=== PATIENT | male | born 1955 | race Caucasian/White ===

== ENCOUNTER → 2017-05-10 | Outpatient (CLI) | payer OTHER ==
[~2017-05-10] MED LIST: ASPEC81 PO; LPT40 PO; LSN5 PO; NTRSLP4 SL; PLV75 PO; TPRSR50 PO
[2017-05-10 13:13] LABS: HEMATOCRIT 41.2 % (42-52); MEAN CELL VOLUME 91.6 fL (80-100); MEAN CORPUSCULAR HEMOGLOBIN 30.9 pg (25-34); MEAN CORPUSCULAR HGB CONC 33.7 g/dl (32-36); MEAN PLATELET VOLUME 9.8 fL (7.4-10.4); PLATELET COUNT 214 K/uL (130-400); WHITE BLOOD COUNT 7.46 K/uL (4.8-10.8)
[2017-05-10 14:10] LABS: ALT/SGPT 30 U/L (12-78); BLOOD UREA NITROGEN 18 mg/dl (7-18); BUN/CREATININE RATIO 16.6 (10-20); CALCIUM 9.1 mg/dl (8.5-10.1); CARBON DIOXIDE 25 mmol/L (21-32); CHLORIDE 109 mmol/L (98-107); CHOLESTEROL 138 mg/dl (0-200); GLUCOSE 89 mg/dl (70-99); POTASSIUM 4.6 mmol/L (3.5-5.1); SODIUM 142 mmol/L (136-145); TRIGLYCERIDES 70 mg/dl (0-150); VERY LOW DENSITY LIPOPROT CALC 14 mg/dl
[2017-05-10 14:13] LABS: ALB/GLOB RATIO 0.9 (0.9-2); ALKALINE PHOSPHATASE 65 U/L (45-117); AST/SGOT 19 U/L (15-37); CHOLESTEROL/HDL RATIO 2.9; HDL CHOLESTEROL 47 mg/dl; LDL CHOLESTEROL CALCULATED 77 mg/dl
== END | disposition home or self-care (01) ==
LOC: C.LAB1850 10:40
PROVIDERS: ATTEND Internal Medicine Cardiovascular Disease
DX: I25.10 Atherosclerotic heart disease of native coronary artery without angina pectoris (principal)

== ENCOUNTER → 2017-11-12 | Outpatient (CLI) | payer OTHER ==
[2017-11-12 12:25] LABS: BASO % 0.4 %; BASO ABS # 0.03 K/uL (0-0.2); EOS % 1.6 %; EOS ABS # 0.11 K/uL (0-0.5); HEMATOCRIT 41.9 % (42-52); HEMOGLOBIN 14.4 g/dL (14.0-18.0); IG# 0.02 K/uL (0.00-0.02); LYMPH % 32.3 %; LYMPH ABS # 2.29 K/uL (1.2-3.4); MEAN CELL VOLUME 91.5 fL (80-100); MEAN CORPUSCULAR HEMOGLOBIN 31.4 pg (25-34); MEAN CORPUSCULAR HGB CONC 34.4 g/dl (32-36); MEAN PLATELET VOLUME 10.1 fL (7.4-10.4); MONO % 7.2 %; MONO ABS # 0.51 K/uL (0.11-0.59); NEUT % 58.2 %; NEUT ABS # 4.12 K/uL (1.4-6.5); PLATELET COUNT 194 K/uL (130-400); RED CELL DISTRIBUTION WIDTH CV 13.2 % (11.5-14.5); RED CELL DISTRIBUTION WIDTH SD 43.8 fL (36.4-46.3); WHITE BLOOD COUNT 7.08 K/uL (4.8-10.8)
[2017-11-12 12:31] LABS: ALBUMIN 3.2 gm/dl (3.4-5.0); ALT/SGPT 30 U/L (12-78); BLOOD UREA NITROGEN 15 mg/dl (7-18); CARBON DIOXIDE 25 mmol/L (21-32); CHOLESTEROL 131 mg/dl (0-200); CREATININE 1.01 mg/dl (0.60-1.40); GLUCOSE 94 mg/dl (70-99); POTASSIUM 4.2 mmol/L (3.5-5.1); SODIUM 139 mmol/L (136-145)
[2017-11-12 12:34] LABS: ALKALINE PHOSPHATASE 66 U/L (45-117); AST/SGOT 19 U/L (15-37); LDL CHOLESTEROL CALCULATED 63 mg/dl; TOTAL PROTEIN 6.9 gm/dl (6.4-8.2)
== END | disposition home or self-care (01) ==
LOC: C.LAB1850 10:39
PROVIDERS: ATTEND Internal Medicine Cardiovascular Disease
DX: Z95.5 Presence of coronary angioplasty implant and graft (principal)

== ENCOUNTER 2021-02-05 15:06 | Inpatient (IN) ==
[~2021-02-05 15:06] MED LIST changes: -ASPEC81 PO; -LPT40 PO; -LSN5 PO; -NTRSLP4 SL; -PLV75 PO; +ROCURONIUM BROMIDE 10 MG/ML 5 ML VIAL IV ONE; -TPRSR50 PO
[2021-02-05] MEDS ORDERED: niCARdipine HCL INJ 2.5 MG/ML 10 ML AMP ONE (15:17)
[2021-02-05] MEDS ORDERED: RAPID SEQUENCE INDUCTION BAG ONE (15:17)
[2021-02-05] MEDS ORDERED: HEPARIN (PORCINE) 1000 UNIT/ML 10 ML (CATH LAB USE ONLY) ONE ×2 (15:17→16:48)
[2021-02-05] MEDS ORDERED: MIDAZOLAM HCL 1 MG/ML 2ML VIAL ONE ×3 (15:17→17:04)
[2021-02-05] MEDS ORDERED: fentaNYL citrate 100 MCG/2 ML VIAL ONE ×2 (15:18→17:04)
[2021-02-05] MEDS ORDERED: NITROGLYCERIN/D5W 100MCG/ML 20ML SYR ONE (15:18)
[2021-02-05] MEDS ORDERED: AMIODARONE 150MG / 100ML D5W IV ONE (15:25)
[2021-02-05] MEDS ORDERED: AMIODARONE / D5W 150 MG/100 ML BAG IV STA (15:26)
[2021-02-05] MEDS ORDERED: 0.2 MICRON FILTER SET 1 EA IV ONE ×2 (15:26→17:37)
[2021-02-05 15:28] LABS: iSTAT Creatinine 1.5 mg/dl (0.6-1.3); iSTAT Hemoglobin 14.3 g/dl (14.0-18.0); iSTAT Ionized Calcium 1.18 mmol/l (1.12-1.32); iSTAT Potassium 3.8 mmol/L (3.3-5.0)
--- NOTE | 2021-02-05 15:37 | History & Physical Report ---
Date of Service February 05, 2021 Assessment & Plan (1) Sudden : While mowing the lawn. Initial rhtyhm was vfib, then Vtach, s/p multiple epinephrine & lidocaine pushes and defibrillation. - LHC with Dr. Alexander on 02/05 showed 70% lesion proximal to his prior stent; however, Dr. Alexander feels this arrest was more likely an arrhythmia stemming from prior OH and not a ACS that caused an arrhythmia. - Presently in ICU undergoing cooling protocol. (2) CAD (coronary artery disease): Per cardiology note, had a prior LAD OH. PCI on 02/05 as above. - Continue ASA, beta-geraldine, ARB, statin per ICU team (3) AMI (acute kidney injury): Baseline Cr ~1.0. - Cr on admission was 1.7, likely ATN from cardiac arrest. - IV fluids per ICU team - Follow Cr (4) HTN (hypertension): Presently on pressors per ICU. - HTN meds per ICU (5) DVT prophylaxis: DVT ppx per ICU team. History of Present Illness Primary Care Provider: Zeke Lazo 65yo M w/ hx of CAD who presents as a sudden . The patient is intubated. Per EMS, he was mowing his lawn and collapsed. EMS arrived, and he was found to be in vfib. They administered approx. 15 minutes of CPR along with 4 pushes of epinephrine. After approx. 15 minutes, he went into Vtach for which he received 3 shocks and two pushes of lidocaine (200 mg) before return of spontaneous circulation. His oxygenation was acceptable on arrival to the ED; however, he was not protecting his airway, and the ED provider elected to intubate him. Allergies Allergy/AdvReac Type Severity Reaction Status Date / Time clopidogrel Allergy Mild hives Verified 11/19/20 11:37 lisinopril AdvReac Mild cough Verified 11/19/20 11:37 Home Medications Medication Instructions Recorded Confirmed Type aspirin 81 mg tablet,delayed 81 mg PO DAILY #30 tab 10/23/19 11/19/20 Rx release atorvastatin 80 mg tablet 80 mg PO QPM #30 tab 10/23/19 11/19/20 Rx nitroglycerin 0.4 mg sublingual 0.4 mg SL Q5M PRN #25 tab 10/23/19 11/19/20 Rx tablet omeprazole 20 mg tablet,delayed 20 mg PO DAILY #30 tab 10/23/19 11/19/20 Rx release losartan 50 mg tablet 50 mg PO DAILY #90 tab 01/18/20 11/19/20 Rx metoprolol succinate 50 mg 50 mg PO DAILY #90 tab 12/16/20 Rx tablet,extended release 24 hr Past Med/Surg History Medical History Acute anterior wall [place] CAD (coronary artery disease) Dyslipidemia Presence of drug coated stent in LAD coronary artery Surgical History S/P cervical spinal fusion Family History Father Coronary heart disease Myocardial infarction Hx of CABG Social History Smoking Status: Unknown if ever smoked Hx Alcohol Use: No (unknown) Hx Substance Use: No Preferred Language: Czech Communication Ability: Unable Contact Center Manager Required: No marital status: Current Living Situation: Spouse current occupational status: retired Feels Safe at Home: No Review of Systems Review of Systems: Unobtainable due to endotracheal tube and Unobtainable due to reduced consciousness Physical Exam Constitutional: WD/WN, vitals as above + acute distress Eyes: no conjunctival abnormality and + EOM not intact ENMT: external ear and nose normal, oropharynx normal Mouth / Teeth: 1. Intubated Neck: trachea midline, no thyromegaly normal visual inspection Respiratory: no respiratory distress Auscultation: no wheezes Cardiovascular: Rate/Rhythm: regular rhythm and + tachycardic Heart Sounds: normal S1 and normal S2 Vessels: no JVD Extremities: no edema Gastrointestinal (Abdomen): Inspection/Auscultation: abdomen normal to inspection; abdomen not distended Musculoskeletal: no cyanosis or clubbing, extremities motor strength 5/5 Skin: no rashes, warm and dry Neurologic: + obtunded; + does not move all extremities and + not awake Psychiatric: Orientation: + not alert PG Care Time/CCT Total # of Minutes Spent Total Time Spent with Patient: Total time spent is greater than 50% in coordination of care (as documented) at patient's floor/unit and/or counseling patient: Coding Level of Care Code 70394 Initial Inpt Care Lvl 3 Diagnoses Sudden R99 CAD (coronary artery disease) I25.10 AMI (acute kidney injury) N17.9 HTN (hypertension) I10 DVT prophylaxis Z29.9
[2021-02-05] MEDS: AMIODARONE / D5W 360 MG/200 ML BAG IV SCH ×2 (15:41→21:21)
[2021-02-05] MEDS ORDERED: SODIUM CHLORIDE 0.9% 1000ML 500 ML IV ONE (15:50)
[2021-02-05] MEDS ORDERED: ROCURONIUM BROMIDE 10 MG/ML 5 ML VIAL IV STA (15:53)
--- NOTE | 2021-02-05 15:53 | Pre Anesthesia Assessment ---
Date of Service February 05, 2021 Pre Sedation Assessment Vital Signs Pulse Resp BP Pulse Ox 02/05/21 15:51 96 02/05/21 15:33 98 H 20 150/90 H 98 Cardiovascular + tachycardic Respiratory Additional Comments: intubated Pre-Sedation Airway Assessment Smoking Status: Unknown if ever smoked ASA: ASA4 Procedure Planning Contraindications for Sedation: none Current Medications Reviewed: Yes Notes The planned sedation has been discussed with the patient. Informed Consent was obtained. I have identified the patient, determined the appropriateness of sedation and have assessed the patient immediately prior to the procedure. All medicine(s) and interventions are by my order.
--- NOTE | 2021-02-05 15:57 | XRay Report ---
SINGLE VIEW CHEST CLINICAL HISTORY: Intubation. Cardiac alert. FINDINGS: An AP, portable, supine chest radiograph is compared to study dated 02/10/2016. The examinat ion is degraded by portable technique and patient rotation. The examination is also degraded by an in determinant structure overlying the chest. An endotracheal tube has been placed. The tip projects zo roximately 1.5 cm above the tessa. The heart is enlarged. There is pulmonary vascular congestion. Em physematous changes suspected. Bilateral airspace opacities are noted. Trace pleural effusions are elmore spected. No pneumothorax is seen. The skeletal structures are osteopenic. The bony thorax is grossly intact. IMPRESSION: 1. An endotracheal tube has been placed as above. 2. Cardiomegaly with pulmonary vascular congestion. 3. Mild bilateral airspace opacities could represent developing pulmonary edema and/or a mild infecti ous/inflammatory pneumonitis. Clinical correlation will be required. 4. Suspect trace pleural effusions. ACT 112: Negative or not required by law. Electronically signed by: Fernando Hernandez M.D. 02/05/2021 3:55 PM
--- NOTE | 2021-02-05 15:59 | Cardiology Consultation ---
Date of Consultation February 05, 2021 Assessment & Plan (1) Sudden : Patient here after sudden cardiac/VF arrest post ROSC. Patient with significant CAD history and known severe residual circumflex disease. Subtle dynamic ST changes after ROSC. Recommend coronary angiography and possible PCI. Will place cooling catheter at same time. History of Present Illness History of Present Illness 65-year-old man here after out of hospital cardiac arrest post ROSC. Patient seen emergently in the ED after heart alert activated en route. Past cardiac history remarkable for coronary artery disease with prior anterior STEMI in 01/2016 treated with 2 overlapping drug-eluting stents from proximal to mid LAD. At that time noted to have severe residual mid, distal dominant circumflex disease with some right to left collaterals from small nondominant right. Most recent echocardiogram 10/2019 showed EF 50 to 55% with apical akinesis, mild LVH and DD 1. Today per had been in his usual state of health. Was outside helping with a lawnmower when had witnessed arrest. Bystander CPR reportedly started within 2 minutes. Initial rhythm with EMS VF. Shocked at least 3 times in field, at least 4 rounds of epi, multiple boluses of lidocaine. Initial ROSC ECG A-flutter with lateral ST depressions. Subsequent ECGs showed sinus rhythm with IVCD, lateral ST changes and subtle inferior ST elevations. Hemodynamically stable in ED. Intubated and loaded with amiodarone. Allergies Allergy/AdvReac Type Severity Reaction Status Date / Time clopidogrel Allergy Mild hives Verified 11/19/20 11:37 lisinopril AdvReac Mild cough Verified 11/19/20 11:37 Home Medications Medication Instructions Recorded Confirmed Type aspirin 81 mg tablet,delayed 81 mg PO DAILY #30 tab 10/23/19 11/19/20 Rx release atorvastatin 80 mg tablet 80 mg PO QPM #30 tab 10/23/19 11/19/20 Rx nitroglycerin 0.4 mg sublingual 0.4 mg SL Q5M PRN #25 tab 10/23/19 11/19/20 Rx tablet omeprazole 20 mg tablet,delayed 20 mg PO DAILY #30 tab 10/23/19 11/19/20 Rx release losartan 50 mg tablet 50 mg PO DAILY #90 tab 01/18/20 11/19/20 Rx metoprolol succinate 50 mg 50 mg PO DAILY #90 tab 12/16/20 Rx tablet,extended release 24 hr Patient History Medical History Acute anterior wall [place] CAD (coronary artery disease) Dyslipidemia Presence of drug coated stent in LAD coronary artery Surgical History S/P cervical spinal fusion Family History Father Coronary heart disease Myocardial infarction Hx of CABG Social History Smoking Status: Unknown if ever smoked Hx Alcohol Use: No (unknown) Hx Substance Use: No Preferred Language: Slovenian Communication Ability: Unable 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 2+ radial pulse Skin: No rashes or lesions. Results & Data ([facility]) Vital Signs (Past 12 Hours) Vital Signs Pulse Resp BP Pulse Ox 02/05/21 15:51 96 02/05/21 15:33 98 H 20 150/90 H 98 PG Care Time/CCT Total # of Minutes Spent Total Time Spent with Patient: Total time spent is greater than 50% in coordination of care (as documented) at patient's floor/unit and/or counseling patient: Coding Level of Care Code 19995 Initial Inpt Care Lvl 3 Diagnoses Sudden R99
[2021-02-05 16:06] LABS: Hematocrit (blood only) 41.5 % (42-52); Hemoglobin 14.1 g/dL (14.0-18.0); Mean Corpuscular Hemoglobin 31.9 pg (25-34); Mean Corpuscular Volume 93.9 fL (80-100); Mean Platelet Volume 10.9 fL (7.4-10.4); Platelet Count 272 K/uL (130-400); RDW Coefficient of Variation 13.2 % (11.5-14.5); RDW Standard Deviation 45.9 fL (36.4-46.3); Red Blood Count 4.42 M/uL (4.7-6.1); White Blood Count 16.02 K/uL (4.8-10.8)
--- NOTE | 2021-02-05 16:06 | Emergency Department Note ---
Impression & Plan Cardiac arrest, Ventricular tachycardia, Ventricular fibrillation, Collapse ED Provider Note NAME: FLORECITA WHITFIELD AGE: 65 SEX: M : 1955 ARRIVES VIA: Ambulance INFORMANT: [ems] ED PROVIDER(S): [Fernando Garcia MD] CHIEF COMPLAINT: Cardiac arrest HISTORY OF PRESENT ILLNESS: The patient is a 65-year-old male who presents to the ER after a cardiac arrest. As per EMS, the patient was mowing the lawn and had a sudden collapse. Within about 2 minutes, the first responders arrived and CPR was initiated. When the ambulance crew arrived, they started ACLS protocol. They did CPR for around 2 minutes. The patient appeared to be in a V. fib. The patient was resuscitated. A Rolando airway was placed. He was defibrillated. He received IV epinephrine. According to EMS, the patient received around 4 mg of IV epinephrine. He was given a total of 200 mg of IV lidocaine. He was defibrillated multiple times for V. fib and V. tach. After the first part of his resuscitation, he regained circulation. He then lost circulation and then once again regained circulation with ACLS protocol. He presents to our ER with a sinus tachycardia and an adequate blood pressure. His O2 saturation was adequate. Of note, the EMS crew did give a small amount of pulse dose IV epinephrine on the way here for a lower blood pressure. His blood pressure rebounded with the epinephrine. The patient's states that her has a long history of heart disease. He does have at least one coronary stent. She states that she was told that the lower part of his heart was not functioning anymore. Given the patient's inability to communicate after resuscitation, no further history is obtainable. REVIEW OF SYSTEMS: Unobtainable given his current mental state/intubation. PMHx/PSHx: See Below SOCIAL HISTORY: See Below. PHYSICAL EXAM: GENERAL: Patient is in no acute distress. HEENT: No acute trauma, normocephalic atraumatic, mucous membranes moist, no n sheila congestion, no scleral icterus. There is a Rolando airway in place orally. Pupils are equal and react to light. NECK: No stridor, no adenopathy, trachea is midline. LUNGS: Clear to auscultation bilaterally, no wheeze, no rhonchi, breath sounds equal. Patient does appear to be taking some spontaneous breaths and at times, breathing around the Rolando airway. HEART: Without murmurs gallops or rubs, mildly tachycardic with an occasional extra beat. ABDOMEN: Soft, not distended, no hernias. No contusions. EXTREMITIES: No cyanosis or edema, there is an IV in each upper extremity. No evidence for acute extremity trauma by gross exam. NEUROLOGIC: The patient is attempting to breathe on his own around the Rolando airway, does not spontaneously move his upper or lower extremities. Intubated. SKIN: No rash, no jaundice, no diaphoresis. DIFFERENTIAL DIAGNOSIS: Cardiac ischemia, V. fib, V. tach, HI, aortic dissection, pulmonary embolism, pneumothorax, pneumonia, pericarditis, myocarditis, esophageal rupture, GERD, cholecystitis, pancreatitis, musculoskeletal, as well as other pathologies. EMERGENCY DEPARTMENT COURSE/PROCEDURES: ECG: Indication was cardiac arrest. The ECG shows sinus tachycardia with a rate of 103. There is some T wave inversion and ST depression in the lateral leads. No ST elevation. No PVCs. The QTc is 489. Compared to an ECG from 12 February 2016, the rate has increased. The ST and T wave changes appear similar. Continuous Cardiac Monitoring: An order was placed for continuous cardiac monitoring. The monitor shows a rate of 102 with sinus tachycardia. Critical Care Note: I have personally spent 63 minutes of critical care time in the direct management of this patient. This includes bedside care, interpretation of diagnostic studies, and testing, discussion with consultants, patient, and family members, and other required patient management activities. This 63 minutes is in excess of all separately billable procedures. Intubation: This procedure was performed by ky. Patient received 50 mg of rocuronium IV. The patient was oxygenated. Using rapid technique, the patient was intubated with a Riley two blade. Some suction was required. No complication. The endotracheal tube was placed at 25 centimeters at the the lips. Good O2 saturation noted afterwards. Good CO2 color change. Breath sounds equal bilaterally. Post intubation chest x-ray demonstrated the tube to be in good position. MEDICAL DECISION MAKING: There is a moderate leukocytosis, this could be consistent with infection or the stress of his presentation. There is no anemia. There is a normal platelet c ount. No coagulopathy. CO2 was somewhat low consistent with some potential acidosis. No kidney failure. No evidence for pancreatitis. Patient appeared to be in a euthyroid state. Urinalysis showed some ketones and some white blood cells. Urinalysis was consistent with the possibility of infection. Covid and influenza testing returned negative. ECG shows a sinus tachycardia, there was no ST elevation. Cardiac enzyme testing x1 is somewhat elevated consistent with cardiac injury. Chest film showed some mild CHF. The endotracheal tube was in proper position. No pneumothorax or pneumonia. The patient presents after a cardiac arrest. Here in the ED, he was given a 500 cc saline bolus. The Rolando airway was eventually removed as he seemed to be breathing around the device. He was intubated orally with an 8.0 endotracheal tube. No complications. He had excellent O2 saturations afterwards. He was given a bolus of amiodarone, 150 mg IV. This was given over around 10 minutes. He was then placed on an IV amiodarone drip. Patient had a Casarez catheter placed and an orogastric tube placed. He was placed on the ventilator. He has done well in the ED. Because of his history, a code Arctic and a heart alert was called. Body cooling was initiated. I did speak with the bow maker production as well as the systems software engineer. I also spoke with the on-call hospitalist. I spoke to the patient's and gave her an update on the patient's condition. Case management has been involved. The patient presents after a cardiac arrest. He has had return of spontaneous circulation. He is in critical condition and being sent to the cardiac catheterization lab and then the ICU. Past Med/Surg History Medical History Acute anterior wall HI CAD (coronary artery disease) Dyslipidemia Presence of drug coated stent in LAD coronary artery Surgical History S/P cervical spinal fusion Family History Father Coronary heart disease Myocardial infarction Hx of CABG Social History Smoking Status: Unknown if ever smoked Hx Alcohol Use: No (unknown) Hx Substance Use: No Preferred Language: Ethiopian Communication Ability: Unable Roll Scale Man Required: No marital status: Current Living Situation: Spouse current occupational status: retired Feels Safe at Home: No Allergies Allergies Allergy/AdvReac Type Severity Reaction Status Date / Time clopidogrel Allergy Mild hives Verified 11/19/20 11:37 lisinopril AdvReac Mild cough Verified 11/19/20 11:37 Home Meds Previous Rx's Medication Instructions Recorded aspirin 81 mg tablet,delayed 81 mg PO DAILY #30 tab 10/23/19 release atorvastatin 80 mg tablet 80 mg PO QPM #30 tab 10/23/19 nitroglycerin 0.4 mg sublingual 0.4 mg SL Q5M PRN #25 tab 10/23/19 tablet omeprazole 20 mg tablet,delayed 20 mg PO DAILY #30 tab 10/23/19 release losartan 50 mg tablet 50 mg PO DAILY #90 tab 01/18/20 metoprolol succinate 50 mg 50 mg PO DAILY #90 tab 12/16/20 tablet,extended release 24 hr Results & Data (ED) Vital Signs Vital Signs - 24 hr 02/05/21 15:15 02/05/21 15:20 02/05/21 15:21 Temperature Pulse Rate 112 H 104 H 100 H Pulse Rate from SpO2 Sensor 103 H 104 H Respiratory Rate Respiratory Effort / Characteristics Respiratory Depth Blood Pressure 152/89 H 175/126 H Blood Pressure Mean 110 142 Blood Pressure Position Pulse Oximetry 99 99 Oxygen Delivery Method Fraction of Inspired Oxygen Sepsis Recent Fever Within 48 Hours Sepsis New/Unexplained Change in Mental Status Sepsis Action Taken by Nursing End-Tidal CO2 02/05/21 15:26 02/05/21 15:30 02/05/21 15:31 Temperature 35.9 C L 36.2 C L 36.4 C L Pulse Rate 102 H 102 H 102 H Pulse Rate from SpO2 Sensor 103 H 101 H 101 H Respiratory Rate Respiratory Effort / Characteristics Respiratory Depth Blood Pressure 145/101 H 182/109 H Blood Pressure Mean 115 133 Blood Pressure Position Pulse Oximetry 97 97 98 Oxygen Delivery Method Mechanical Vent Mechanical Vent Mechanical Vent Fraction of Inspired Oxygen Sepsis Recent Fever Within 48 Hours Sepsis New/Unexplained Change in Mental Status Sepsis Action Taken by Nursing End-Tidal CO2 38 42 43 02/05/21 15:33 02/05/21 15:35 02/05/21 15:38 Temperature 36.5 C Pulse Rate 98 H 108 H 87 Pulse Rate from SpO2 Sensor 109 H Respiratory Rate 20 18 Respiratory Effort / Characteristics Respiratory Depth Normal Blood Pressure 150/90 H 179/108 H Blood Pressure Mean 110 131 Blood Pressure Position Lying Pulse Oximetry 98 98 98 Oxygen Delivery Method Mechanical Vent Mechanical Vent Fraction of Inspired Oxygen 100 Sepsis Recent Fever Within 48 Hours No Sepsis New/Unexplained Change in Mental Status N/A Sepsis Action Taken by Nursing No Action Required End-Tidal CO2 46 02/05/21 15:40 02/05/21 15:47 02/05/21 15:51 Temperature 36.6 C Pulse Rate 95 H Pulse Rate from SpO2 Sensor 95 H Respiratory Rate Respiratory Effort / Characteristics Mechanically Ventilated Respiratory Depth Blood Pressure 180/106 H Blood Pressure Mean 130 Blood Pressure Position Pulse Oximetry 98 96 Oxygen Delivery Method Mechanical Vent Mechanical Vent Fraction of Inspired Oxygen Sepsis Recent Fever Within 48 Hours Sepsis New/Unexplained Change in Mental Status Sepsis Action Taken by Nursing End-Tidal CO2 41 02/05/21 17:25 02/05/21 17:30 Temperature Pulse Rate 87 89 Pulse Rate from SpO2 Sensor Respiratory Rate 16 20 Respiratory Effort / Characteristics Respiratory Depth Blood Pressure Blood Pressure Mean Blood Pressure Position Pulse Oximetry 98 97 Oxygen Delivery Method Fraction of Inspired Oxygen 100 60 Sepsis Recent Fever Within 48 Hours Sepsis New/Unexplained Change in Mental Status Sepsis Action Taken by Nursing End-Tidal CO2 40 Home Medications Current Medication List: was personally reviewed by me Laboratory Data Attestation: I reviewed the patient's lab results. Result diagrams: 02/05/21 19:12 02/05/21 19:12 Lab Results 02/05/21 02/05/21 02/05/21 Range/Units 15:14 15:14 15:14 WBC 16.02 H (4.8-10.8) K/uL RBC 4.42 L (4.7-6.1) M/uL Hgb 14.1 (14.0-18.0) g/dL POC Hgb (14.0-18.0) g/dl Hct 41.5 L (42-52) % POC Hct (42-52) % MCV 93.9 (80-100) fL MCH 31.9 (25-34) pg MCHC 34.0 (32-36) g/dL RDW Std Deviation 45.9 (36.4-46.3) fL RDW Coeff of Linda 13.2 (11.5-14.5) % Plt Count 272 (130-400) K/uL MPV 10.9 H (7.4-10.4) fL Immature Gran % (Auto) 2.1 % Neut % (Auto) 49.2 % Lymph % (Auto) 42.6 % [place] % (Auto) 5.5 % Eos % (Auto) 0.4 % Baso % (Auto) 0.2 % Neut # (Auto) 7.88 H (1.4-6.5) K/uL Lymph # (Auto) 6.82 H (1.2-3.4) K/uL [place] # (Auto) 0.88 H (0.11-0.59) K/uL Eos # (Auto) 0.07 (0-0.5) K/uL Baso # (Auto) 0.04 (0-0.2) K/uL Immature Gran # (Auto) 0.33 H (0.00-0.02) K/uL PT 11.3 (9.0-12.0) Seconds INR 1.1 (0.9-1.1) APTT 25.3 (21.0-31.0) Seconds PTT Ratio 1.0 Activ Coag Time Kaolin (94-140) SECONDS POC Sodium (135-144) mmol/L Sodium 142 (136-145) mmol/L POC Potassium (3.3-5.0) mmol/L Potassium 3.9 (3.5-5.1) mmol/L POC Chloride (101-112) mmol/L Chloride 109 H (98-107) mmol/L Carbon Dioxide 16 L (21-32) mmol/L POC Total CO2 (24-31) mmol/L Anion Gap 17.0 H (3-11) POC Anion Gap (16-25) mmol/L POC BUN (7-18) mg/dl BUN 18 (7-18) mg/dl Creatinine 1.69 H (0.6-1.4) mg/dl POC Creatinine (0.6-1.3) mg/dl Est Cr Clr Drug Dosing 56.0 ml/min Est GFR ( Amer) 47.7 Est GFR (Non-Af Amer) 41.1 BUN/Creatinine Ratio 10.7 (10-20) Glucose 255 H (70-99) mg/dl POC Glucose (other) (70-99) mg/dl Calcium 8.4 L (8.5-10.1) mg/dl POC Ioniz Calcium Neelam (1.12-1.32) mmol/l Phosphorus 7.0 H (2.5-4.9) mg/dl Magnesium 2.4 (1.8-2.4) mg/dl Total Bilirubin 0.5 (0.2-1) mg/dl AST 67 H (15-37) U/L ALT 92 H (12-78) U/L Alkaline Phosphatase 86 (45-117) U/L Troponin I 0.076 H* (0-0.045) ng/ml Total Protein 6.7 (6.4-8.2) gm/dl Albumin 3.2 L (3.4-5.0) gm/dl Globulin 3.5 (2.5-4.0) gm/dl Albumin/Globulin Ratio 0.9 (0.9-2) Lipase 97 (73-393) U/L TSH 4.490 (0.300-4.500) uIu/ml Urine Color Urine Appearance (Clear) Urine pH (4.5-7.5) Ur Specific [place] (1.000-1.030) Urine Protein (Negative) Urine Glucose (UA) (Negative) Urine Ketones (Negative) Urine Blood (Negative) Urine Nitrite (Negative) Urine Bilirubin (Negative) Urine Urobilinogen (Negative) Ur Leukocyte Esterase (Negative) Urine WBC (Auto) (0-5) /hpf Urine RBC (Auto) (0-4) /hpf U Hyaline Cast (Auto) (0-5) /lpf U Epithel Cells (Auto) (0-5) /lpf Urine Bacteria (Auto) (Negative) Amorphous Sediment (None Prsent) Urine Yeast 02/05/21 02/05/21 02/05/21 Range/Units 15:15 15:44 16:45 WBC (4.8-10.8) K/uL RBC (4.7-6.1) M/uL Hgb (14.0-18.0) g/dL POC Hgb 14.3 (14.0-18.0) g/dl Hct (42-52) % POC Hct 42 (42-52) % MCV (80-100) fL MCH (25-34) pg MCHC (32-36) g/dL RDW Std Deviation (36.4-46.3) fL RDW Coeff of Linda (11.5-14.5) % Plt Count (130-400) K/uL MPV (7.4-10.4) fL Immature Gran % (Auto) % Neut % (Auto) % Lymph % (Auto) % [place] % (Auto) % Eos % (Auto) % Baso % (Auto) % Neut # (Auto) (1.4-6.5) K/uL Lymph # (Auto) (1.2-3.4) K/uL [place] # (Auto) (0.11-0.59) K/uL Eos # (Auto) (0-0.5) K/uL Baso # (Auto) (0-0.2) K/uL Immature Gran # (Auto) (0.00-0.02) K/uL PT (9.0-12.0) Seconds INR (0.9-1.1) APTT (21.0-31.0) Seconds PTT Ratio Activ Coag Time Kaolin 191 H (94-140) SECONDS POC Sodium 141 (135-144) mmol/L Sodium (136-145) mmol/L POC Potassium 3.8 (3.3-5.0) mmol/L Potassium (3.5-5.1) mmol/L POC Chloride 107 (101-112) mmol/L Chloride (98-107) mmol/L Carbon Dioxide (21-32) mmol/L POC Total CO2 16 L (24-31) mmol/L Anion Gap (3-11) POC Anion Gap 22.0 (16-25) mmol/L POC BUN 19 H (7-18) mg/dl BUN (7-18) mg/dl Creatinine (0.6-1.4) mg/dl POC Creatinine 1.5 H (0.6-1.3) mg/dl Est Cr Clr Drug Dosing ml/min Est GFR ( Amer) Est GFR (Non-Af Amer) BUN/Creatinine Ratio (10-20) Glucose (70-99) mg/dl POC Glucose (other) 249 H (70-99) mg/dl Calcium (8.5-10.1) mg/dl POC Ioniz Calcium Neelam 1.18 (1.12-1.32) mmol/l Phosphorus (2.5-4.9) mg/dl Magnesium (1.8-2.4) mg/dl Total Bilirubin (0.2-1) mg/dl AST (15-37) U/L ALT (12-78) U/L Alkaline Phosphatase (45-117) U/L Troponin I (0-0.045) ng/ml Total Protein (6.4-8.2) gm/dl Albumin (3.4-5.0) gm/dl Globulin (2.5-4.0) gm/dl Albumin/Globulin Ratio (0.9-2) Lipase (73-393) U/L TSH (0.300-4.500) uIu/ml Urine Color Dark Yellow Urine Appearance Cloudy A (Clear) Urine pH 5.5 (4.5-7.5) Ur Specific [place] 1.025 (1.000-1.030) Urine Protein 3+ H (Negative) Urine Glucose (UA) Negative (Negative) Urine Ketones Trace H (Negative) Urine Blood 2+ H (Negative) Urine Nitrite Negative (Negative) Urine Bilirubin Negative (Negative) Urine Urobilinogen Negative (Negative) Ur Leukocyte Esterase Negative (Negative) Urine WBC (Auto) >30 H (0-5) /hpf Urine RBC (Auto) 5-10 H (0-4) /hpf U Hyaline Cast (Auto) 10-30 H (0-5) /lpf U Epithel Cells (Auto) 20-30 H (0-5) /lpf Urine Bacteria (Auto) Negative (Negative) Amorphous Sediment Present A (None Prsent) Urine Yeast Not Reportable Administered Medications Amiodarone HCl/Dextrose (Nexterone / D5w) 360 mg in 200 mls @ 33.333 mls/hr IV .Q6H NEIL Stop: 03/07/21 15:44 Last Infusion: 02/05/21 19:07 Dose: 1 mg/min, 33.3 mls/hr Documented by: [id number] Cosigned by: [id number] Admin: 02/05/21 15:41 Dose: 1 mg/min, 33.3 mls/hr Documented by: [id number] Cosigned by: [id number] Sodium Chloride (Nss 1000ml) 1,000 mls @ 100 mls/hr IV .Q10H NEIL Stop: 02/06/21 01:14 Last Admin: 02/05/21 18:55 Dose: 100 mls/hr Documented by: [id number] Propofol (Diprivan) 1,000 mg in 100 mls @ 15.276 mls/hr IV .Q6H33M [facility]; Protocol Stop: 02/08/21 17:59 Last Admin: 02/05/21 19:30 Dose: 20 mcg/kg/min, 15.3 mls/hr Documented by: [id number] Cosigned by: [id number] Fentanyl Citrate (Fentanyl Drip) 1,250 mcg in 250 mls @ 10 mls/hr IV .Q25H [facility]; Protocol Stop: 02/19/21 17:59 Last Titration: 02/05/21 20:00 Dose: 50 mcg/hr, 10 mls/hr Documented by: [id number] Cosigned by: [id number] Titration: 02/05/21 19:07 Dose: 25 mcg/hr, 5 mls/hr Documented by: [id number] Cosigned by: [id number] Admin: 02/05/21 18:52 Dose: 25 mcg/hr, 5 mls/hr Documented by: [id number] Cosigned by: [id number] Discontinued Medications Amiodarone HCl/Dextrose (Amiodarone 150mg / 100ml D5w) Confirm Administered Dose 150 mg IV .STK-MED ONE Stop: 02/05/21 15:26 Last Admin: 02/05/21 15:31 Dose: Not Given Documented by: [id number] Fentanyl Citrate (Fentanyl Citrate 100 Mcg/2 Ml Vial) Confirm Administered Dose 100 mcg .ROUTE .STK-MED ONE Stop: 02/05/21 15:19 Last Admin: 02/05/21 17:39 Dose: 100 mcg Documented by: [id number] Fentanyl Citrate (Fentanyl Citrate 100 Mcg/2 Ml Vial) Confirm Administered Dose 100 mcg .ROUTE .STK-MED ONE Stop: 02/05/21 17:05 Last Increment: 02/05/21 17:41 Dose: 50 mcg Documented by: [id number] Fentanyl Citrate (Fentanyl Citrate 1250mcg/250ml Nss) Confirm Administered Dose 1,250 mcg IV .STK-MED ONE Stop: 02/05/21 18:00 Last Admin: 02/05/21 18:54 Dose: Not Given Documented by: [id number] Heparin Sodium (Porcine) (Heparin (Porcine) 1000 Unit/Ml 10 Ml (Electrician Rectifier Maintenance Use Only)) Confirm Administered Dose 10,000 units .ROUTE .STK-MED ONE Stop: 02/05/21 15:18 Last Admin: 02/05/21 17:39 Dose: 10,000 units Documented by: [id number] Heparin Sodium (Porcine) (Heparin (Porcine) 1000 Unit/Ml 10 Ml (Electrician Rectifier Maintenance Use Only)) Confirm Administered Dose 10,000 units .ROUTE .STK-MED ONE Stop: 02/05/21 16:49 Last Admin: 02/05/21 17:40 Dose: 2,000 units Documented by: [id number] Heparin Sodium/Sodium Chloride (Heparin In Nss Infusion 1000 Unit/500 Ml (2 U/Ml) Bag) Confirm Administered Dose 3,000 units IV .STK-MED ONE Stop: 02/05/21 15:19 Last Admin: 02/05/21 17:40 Dose: 3,000 units Documented by: [id number] Amiodarone HCl/Dextrose (Nexterone / D5w) 150 mg in 100 mls @ 600 mls/hr IV NOW STA Stop: 02/05/21 15:35 Last Infusion: 02/05/21 18:54 Dose: 0 mls/hr Documented by: [id number] Cosigned by: [id number] Admin: 02/05/21 15:31 Dose: 600 mls/hr Documented by: [id number] Cosigned by: [id number] Sodium Chloride (Nss 1000ml) 500 mls @ 999 mls/hr IV .Q31M ONE Stop: 02/05/21 16:20 Last Admin: 02/05/21 18:51 Dose: Not Given Documented by: [id number] Midazolam HCl (Midazolam Hcl 1 Mg/Ml 2ml Vial) Confirm Administered Dose 2 mg .ROUTE .STK-MED ONE Stop: 02/05/21 15:18 Last Admin: 02/05/21 17:39 Dose: 2 mg Documented by: [id number] Midazolam HCl (Midazolam Hcl 1 Mg/Ml 2ml Vial) Confirm Administered Dose 2 mg .ROUTE .STK-MED ONE Stop: 02/05/21 16:30 Last Admin: 02/05/21 17:40 Dose: 2 mg Documented by: [id number] Midazolam HCl (Midazolam Hcl 1 Mg/Ml 2ml Vial) Confirm Administered Dose 2 mg .ROUTE .STK-MED ONE Stop: 02/05/21 17:05 Last Admin: 02/05/21 17:41 Dose: 2 mg Documented by: [id number] Miscellaneous (Rapid Sequence Induction Bag) Confirm Administered Dose 1 ea .ROUTE .STK-MED ONE Stop: 02/05/21 15:18 Last Admin: 02/05/21 18:51 Dose: Not Given Documented by: [id number] Nicardipine HCl (Nicardipine Hcl Inj 2.5 Mg/Ml 10 Ml Amp) Confirm Administered Dose 25 mg .ROUTE [email or web address] ONE Stop: 02/05/21 15:18 Last Admin: 02/05/21 17:39 Dose: 25 mg Documented by: [id number] Nitroglycerin/Dextrose (Nitroglycerin/D5w 100mcg/Ml 20ml Syr) Confirm Administered Dose 2,000 mcg .ROUTE .ST1000 Corks-MED ONE Stop: 02/05/21 15:19 Last Admin: 02/05/21 17:40 Dose: 2,000 mcg Documented by: [id number] Propofol (Propofol Iv Emulsion 10 Mg/Ml 100 Ml Vial) Confirm Administered Dose 1,000 mg IV [email or web address] ONE Stop: 02/05/21 18:00 Last Admin: 02/05/21 18:54 Dose: Not Given Documented by: [id number] Rocuronium [place] (Rocuronium [place] 10 Mg/Ml 5 Ml Vial) 50 mg IV NOW STA Stop: 02/05/21 15:54 Last Admin: 02/05/21 15:21 Dose: 50 mg Documented by: [id number] Cosigned by: [id number] Ticagrelor (Ticagrelor 90 Mg Tab) Confirm Administered Dose 180 mg PO .Volvant ONE Stop: 02/05/21 16:57 Last Admin: 02/05/21 17:40 Dose: 180 mg Documented by: [id number] Imaging Data Radiologist's Impression: Chest X-Ray 02/05/21 15:33 SINGLE VIEW CHEST CLINICAL HISTORY: Intubation. Cardiac alert. FINDINGS: An AP, portable, supine chest radiograph is compared to study dated 02/10/2016. The examination is degraded by portable technique and patient rotation. The examination is also degraded by an indeterminant structure overlying the chest. An endotracheal tube has been placed. The tip projects approximately 1.5 cm above the tessa. The heart is enlarged. There is pulmonary vascular congestion. Emphysematous changes suspected. Bilateral airspace opacities are noted. Trace pleural effusions are suspected. No pneumothorax is seen. The skeletal structures are osteopenic. The bony thorax is grossly intact. IMPRESSION: 1. An endotracheal tube has been placed as above. 2. Cardiomegaly with pulmonary vascular congestion. 3. Mild bilateral airspace opacities could represent developing pulmonary edema and/or a mild infectious/inflammatory pneumonitis. Clinical correlation will be required. 4. Suspect trace pleural effusions. ACT 112: Negative or not required by law. Electronically signed by: Fernando Hernandez M.D. 02/05/2021 3:55 PM Discharge Plan Visit Data Chief Complaint: Cardiac Arrest/CPR Stated Complaint: HEART ALERT ED Provider: Fernando Garcia Discharge Problem: Cardiac arrest, Ventricular tachycardia, Ventricular fibrillation, Collapse Patient Disposition: Admitted As Inpatient Condition: Critical
[2021-02-05 16:10] LABS: Appearance Urine Cloudy (Clear); Bacteria Urine Automated Negative (Negative); Bilirubin Urine Negative (Negative); Blood Urine 2+ (Negative); Color Urine Dark Yellow; Epithelial Cell Urine Auto 20-30 /lpf (0-5); Glucose Urine UA Negative (Negative); Ketones Urine Trace (Negative); Leukocyte Esterase Urine Negative (Negative); Nitrite Urine Negative (Negative); Protein Urine 3+ (Negative); Specific Gravity Urine 1.025 (1.000-1.030); Urobilinogen Urine Negative (Negative); WBC Urine Automated >30 /hpf (0-5); pH Urine 5.5 (4.5-7.5)
[2021-02-05 16:15] LABS: Albumin Level 3.2 gm/dl (3.4-5.0); BUN Creatinine Ratio 10.7 (10-20); Calcium 8.4 mg/dl (8.5-10.1); Est GFR (African American) 47.7; Est GFR (Non-African American) 41.1; Magnesium 2.4 mg/dl (1.8-2.4); Potassium 3.9 mmol/L (3.5-5.1)
[2021-02-05 16:17] LABS: INR 1.1 (0.9-1.1); Partial Thromboplastin Time 25.3 Seconds (21.0-31.0); Prothrombin Time 11.3 Seconds (9.0-12.0)
[2021-02-05 16:29] LABS: Basophils # (auto) 0.04 K/uL (0-0.2); Basophils % (auto) 0.2 %; Eosinophils # (auto) 0.07 K/uL (0-0.5); Eosinophils % (auto) 0.4 %; Immature Granulocytes # (auto) 0.33 K/uL (0.00-0.02); Immature Granulocytes % (auto) 2.1 %; Lymphocytes # (auto) 6.82 K/uL (1.2-3.4); Lymphocytes % (auto) 42.6 %; Monocytes # (auto) 0.88 K/uL (0.11-0.59); Monocytes % (auto) 5.5 %; Neutrophils # (auto) 7.88 K/uL (1.4-6.5); Neutrophils % (auto) 49.2 %
[2021-02-05 16:32] LABS: Albumin Globulin Ratio 0.9 (0.9-2); Bilirubin,Total 0.5 mg/dl (0.2-1); Globulin 3.5 gm/dl (2.5-4.0); Thyroid Stimulating Hormone 4.49 uIu/ml (0.300-4.500); Total Protein 6.7 gm/dl (6.4-8.2); Troponin I 0.076 ng/ml (0-0.045)
[2021-02-05 16:49] LABS: Amorphous Sediment Urine Present (None Prsent)
[2021-02-05] MEDS ORDERED: TICAGRELOR 90 MG TAB PO ONE (16:56)
--- NOTE | 2021-02-05 17:34 | Post Anesthesia Assessment ---
Date of Service February 05, 2021 Post Sedation Assessment Vital Signs Temp Pulse Resp BP Pulse Ox 02/05/21 15:51 96 02/05/21 15:40 97.9 F 95 H 180/106 H 98 02/05/21 15:35 97.7 F 108 H 179/108 H 98 02/05/21 15:33 98 H 20 150/90 H 98 02/05/21 15:31 97.5 F L 102 H 182/109 H 98 02/05/21 15:30 97.2 F L 102 H 97 02/05/21 15:26 96.6 F L 102 H 145/101 H 97 02/05/21 15:21 100 H 175/126 H 99 02/05/21 15:20 104 H 99 02/05/21 15:15 112 H 152/89 H Recovery Score Circulation: +/-20% PreAnes Value Consciousness: Nonresponsive Oxygen Saturation: O2 needed for >90% Discharge Sedation Level of Care: Higher Level of Care Post Sedation Plan On clinical assessment, the patient appears to have tolerated the sedation without complications. Patient is recovering as anticipated. Patient will continue to be monitored by nursing and may be discharged when sedation discharge criteria are met per below protocol. Upon Completions of procedure up to 15 minutes continue every 5 minute vital signs and the P.A.R. score; then discharge to a Phase I or Fast Track to Phase II per the following guidelines: * Discharge Patient to appropriate Phase II area if PAR is 8 or greater or return to pre- procedure baseline. The post - procedure orders will be as directed. * If PAR score is less than 8 or not return to pre-procedure baseline then patient will follow Phase I monitoring till PAR is reached for Phase II. The Phase I may be done in procedure room or may call to secure a Phase I area. * If naloxone or flumazenil are used for reversal, hold in Phase I for continued monitoring from when last reversal dose was given for a minimum of 60 minutes or longer pending the nurse and/or physician discretion of patient condition before discharge to Phase II. Please call the Sedation Physician to re-evaluate and complete post-note for discharge to Phase II area. Do NOT discharge from procedure sedation or Phase 1 until post- sedation evaluation note is complete by procedure /sedation MD Sedation Discharge Instructions to be given to the patient at discharge to home.
[2021-02-05] MEDS ORDERED: ICU PROTOCOL FOR HYPERGLYCEMIA PRN (17:37)
[2021-02-05] MEDS ORDERED: AMIODARONE / D5W 360 MG/200 ML BAG IV ONE (17:37)
--- NOTE | 2021-02-05 17:37 | Post Operative Brief Note ---
Cardiology Brief Post Op Date of Surgery February 05, 2021 Pre & Post Diagnosis Coronary artery disease Procedure Coronary angiography Left heart catheterization PCI to proximal LAD with single LUCIANA IVUS of LAD Cooling catheter placement to right common femoral vein under ultrasound guidance Boner Meat Foster Alexander MD Alumina Refinery Operator Vinay Estimated Blood Loss 15 Findings See Below 70% proximal LAD with questionable thrombus on IVUS 100% proximal circumflex chronic occlusion. Left to left collaterals to PDA/PLB Small, nondominant RCA with diffuse disease Successful PCI of proximal LAD with single LUCIANA (3.0 x 15 mm [place]; postdilated with 3.5 NC). Fluids -- Specimens Specimen Description: -- Anesthesia Type RN Sedation Complications none Disposition Accompanied Patient To Recovery: No Disposition: Surgical ICU Overlapping Procedure I was present for: the critical portions of procedure. I was immediately available: during the entire case. Back up surgeon: was not required during procedure.
[2021-02-05] MEDS ORDERED: SODIUM CHLORIDE 0.9% 1000ML 1,000 ML IV SCH (17:45)
[2021-02-05] MEDS ORDERED: AMIODARONE / D5W 360 MG/200 ML BAG IV SCH (17:45)
--- NOTE | 2021-02-05 17:46 | Pulmonary Consultation ---
Date of Consultation February 05, 2021 Assessment & Plan (1) Cardiac arrest: Reason for critical illness: 55-year-old male past medical history of coronary artery disease s/p RI in 2016 was brought to the ED after cardiac arrest on the field. He had V. fib and V. tach for which he was defibrillated multiple times and given 200 mg of lidocaine. He also got 5 rounds of epi. In the ED he had ROSC. He was taken to [facility] and stent was placed in proximal LAD. He is in MICU for further care --Cardiac arrest Patient had multiple V. fib and V. tach Patient was taken to [facility] Proximal LAD stent placed in Patient had multiple vessel disease On hypothermia protocol EKG 02/05/2021 done in the ED: Sinus tachycardia, normal axis, no ST-T wave changes appreciated -- VDRF Likely secondary to cardiac arrest for airway protection Continue with ventilatory support Keep RASS -1 -- AMI Follow-up urine lites Monitor BUN/creatinine Avoid nephrotoxic medications Strict ins and outs -- HAGMA Delta-delta: Less than 1, gap was nongap Gap is likely from lactic acidosis, patient is also having diarrhea nongap could be from that, will follow urine lites. Follow up ABG Monitor -- Leukocytosis Likely reactive to cardiac arrest Monitor --Prophylaxis VTE: IPC's GI: Protonix Lines: Right femoral, left radial, positive Casarez Diet: N.p.o. Plan: Continue with hypothermia protocol Follow-up urine lites If the has another episode of V. fib V. tach start amiodarone drip Chest x-ray done in the ED showed ET tube 1.3 cm above the tessa. We will repeat a status chest x-ray to make sure it is in a good position. Patient condition was updated to the patient's was present at bedside. I have personally spent 58 minutes of critical care time in the direct management of this patient. This is a life/limb threatening event. This includes time spent evaluating patient, direct bedside care, chart review, placing orders, interpretation of diagnostic studies, discussion with consultants, patient, and family members, as well as other required patient management activities. This time is exclusive of all separately billable procedures, and teaching time and separate from and in addition to any other critical care service time. Please note the above document was generated using voice recognition software. It may contain grammatical, syntax or spelling errors. (2) CAD (coronary artery disease): (3) AMI (acute kidney injury): (4) High anion gap metabolic acidosis: History of Present Illness Attending Physician: Foster Alexander MD History of Present Illness 65-year-old male past medical history of STEMI in 2016 treated with stent at that time to the mid LAD., Morbid obesity He came to the ED s/p cardiac arrest on the field. He had V. fib and V. tach he was given 20 mg of IV lidocaine had a multiple defibrillations. He got 6 rounds of epi. Patient had ROSC at the time of presentation to the ED. He was taken to the [facility] by Dr. Alexander and finally brought to the ICU At the time of examination patient was already intubated. His temperature was 35.9 He was breathing over the vent. He was saturating 100% on 60% FiO2 Heart rate was in the mid 80s. Regular rhythm. History obtained from previous records and ER records. Signout was given by Dr. Garcia as well as Dr. Alexander Allergies Allergy/AdvReac Type Severity Reaction Status Date / Time clopidogrel Allergy Mild hives Verified 11/19/20 11:37 lisinopril AdvReac Mild cough Verified 11/19/20 11:37 Home Medications Medication Instructions Recorded Confirmed Type aspirin 81 mg tablet,delayed 81 mg PO DAILY #30 tab 10/23/19 11/19/20 Rx release atorvastatin 80 mg tablet 80 mg PO QPM #30 tab 10/23/19 11/19/20 Rx nitroglycerin 0.4 mg sublingual 0.4 mg SL Q5M PRN #25 tab 10/23/19 11/19/20 Rx tablet omeprazole 20 mg tablet,delayed 20 mg PO DAILY #30 tab 10/23/19 11/19/20 Rx release losartan 50 mg tablet 50 mg PO DAILY #90 tab 01/18/20 11/19/20 Rx metoprolol succinate 50 mg 50 mg PO DAILY #90 tab 12/16/20 Rx tablet,extended release 24 hr Patient History Medical History Acute anterior wall RI CAD (coronary artery disease) Dyslipidemia Presence of drug coated stent in LAD coronary artery Surgical History S/P cervical spinal fusion Family History Father Coronary heart disease Myocardial infarction Hx of CABG Social History Smoking Status: Unknown if ever smoked Hx Alcohol Use: No (unknown) Hx Substance Use: No Preferred Language: Persian Communication Ability: Unable Child Welfare Caseworker Required: No marital status: Current Living Situation: Spouse current occupational status: retired Feels Safe at Home: No Review of Systems Review of Systems: Unobtainable due to endotracheal tube Physical Exam Physical Exam: Constitutional: No acute distress HEENT: PERRLA Respiratory system: Decreased air entry bilaterally, no wheeze, no rhonchi, positive crackles bilateral lower lobe CVS: S1-S2 positive, no murmurs or gallops Abdomen: Soft, nontender, nondistended, positive bowel sounds x4, obese Extremities: +2 pulses bilaterally radialis/ dorsalis pedis, no cyanosis, no edema Neuro: Breathing over the vent, positive pupillary, positive corneal Psych: Unable to assess G/U: Positive Casarez Skin: no rashes, warm and dry Lymphatic: no cervical or axillary lymphadenopathy Results & Data Results & Data ([facility]) Vital Signs (Past 12 Hours) Vital Signs Temp Pulse Resp BP Pulse Ox 02/05/21 15:51 96 02/05/21 15:40 36.6 C 95 H 180/106 H 98 02/05/21 15:35 36.5 C 108 H 179/108 H 98 02/05/21 15:33 98 H 20 150/90 H 98 02/05/21 15:31 36.4 C L 102 H 182/109 H 98 02/05/21 15:30 36.2 C L 102 H 97 02/05/21 15:26 35.9 C L 102 H 145/101 H 97 02/05/21 15:21 100 H 175/126 H 99 02/05/21 15:20 104 H 99 02/05/21 15:15 112 H 152/89 H 02/05/21 15:14 02/05/21 15:14 PG Care Time/CCT Total # of Minutes Spent Total Time Spent with Patient: Total time spent is greater than 50% in coordination of care (as documented) at patient's floor/unit and/or counseling patient: Critical Care Time: Yes Total Critical Care Time: 58 Coding Level of Care Code None Diagnoses Cardiac arrest I46.9 CAD (coronary artery disease) I25.10 AMI (acute kidney injury) N17.9 High anion gap metabolic acidosis E87.2 Additional Codes Critical Care Time - Critical Care Time: Yes ([id number]) Time Spent (min) 58
[2021-02-05] MEDS ORDERED: STAT IV Infusion **Titration per Protocol STA (17:55)
[2021-02-05] MEDS ORDERED: PROPOFOL IV EMULSION 10 MG/ML 100 ML VIAL IV ONE (17:59)
--- NOTE | 2021-02-05 18:45 | Procedure Note ---
Procedure Note Date of Service February 05, 2021 ARTERIAL LINE PROCEDURE NOTE: Procedure: Arterial Line Placement Attending: Dr. Charlie Urrutia MD Indication: Monitoring on Pressors Anesthesia: General anesthesia Emergency consent was applied A time-out was completed verifying correct patient, procedure, site, positioning, and implant(s) or special equipment if applicable. Allens test was performed to ensure adequate perfusion. Patients left wrist was prepped and draped in the usual sterile fashion. Ultrasound guidance was used to aid needle placement. A 20g Arrow arterial line was introduced into the left artery. Catheter was threaded, and the needle was removed with appropriate pulsatile blood return. Good waveform was observed on the monitor. The patient tolerated the procedure well. Complications: None Blood Loss: Less than 2 cc Coding CPT Codes Tubes, Drains, and Vasc Access - Tubes, Drains, and Vasc Access: [id number] Insertion Catheter, Artery ([id number]) Tubes, Drains, and Vasc Access - Tubes, Drains, and Vasc Access: [id number] Ultrasound Guidance For Vascular ([id number]) [facility] [place] Procedure Codes (Charges) Tubes, Drains, and Vasc Access Procedure 1: Tubes, Drains, and Vasc Access: [id number] Insertion Catheter, Artery Procedure 2: Tubes, Drains, and Vasc Access: [id number] Ultrasound Guidance For Vascular
[2021-02-05] MEDS: fentaNYL DRIP 1,250 MCG/250 ML BAG IV SCH (18:52)
--- NOTE | 2021-02-05 19:01 | XRay Report ---
SINGLE VIEW CHEST CLINICAL HISTORY: Enteric tube placement. FINDINGS: 2 AP, portable, supine chest radiographs are compared to study performed earlier the same d ay 02/05/2021. The examination is degraded by portable technique and patient rotation. An endotracheal tube is unchanged in position. An enteric tube has been placed. The tip projects at least 8 cm above the diaphragm. The heart is enlarged. There is pulmonary vascular congestion. Emphysematous change i s suspected. Bilateral airspace opacities have modestly cleared from previous. No large pleural effus ion or pneumothorax is seen. The skeletal structures are osteopenic. The bony thorax is grossly intac t. Fusion hardware is noted in the lower cervical spine. IMPRESSION: 1. An endotracheal tube is unchanged in position. 2. An enteric tube has been placed. This projects at least 8 cm above the diaphragm and should be adv anced. 3. Cardiomegaly with persistent pulmonary vascular congestion. This appears modestly improved from pr evious. 4. Bilateral airspace opacities have also improved from previous. ACT 112: Negative or not required by law. Electronically signed by: Fernando Hernandez M.D. 02/05/2021 6:59 PM
[2021-02-05 19:18] LABS: iSTAT Arterial Blood Gas HCO3 19 meg/L (19-24); iSTAT Arterial Blood Gas pCO2 42 mmHg (35-46); iSTAT Arterial Blood Gas pH 7.25 (7.35-7.45); iSTAT Arterial Blood Gas pO2 154 mmHg (80-95); iSTAT Carbon Dioxide 20 mmol/L (24-31)
[2021-02-05 19:19] LABS: Hematocrit (blood only) 45.1 % (42-52); Hemoglobin 15.2 g/dL (14.0-18.0); Mean Corpuscular Hemoglobin 31.3 pg (25-34); Mean Corpuscular Hgb Conc 33.7 g/dL (32-36); Mean Corpuscular Volume 92.8 fL (80-100); Mean Platelet Volume 10.2 fL (7.4-10.4); Platelet Count 246 K/uL (130-400); RDW Coefficient of Variation 13.2 % (11.5-14.5); RDW Standard Deviation 45.1 fL (36.4-46.3); Red Blood Count 4.86 M/uL (4.7-6.1); White Blood Count 22.29 K/uL (4.8-10.8)
[2021-02-05 19:28] LABS: Influenza A virus by PCR Negative (Neg); Influenza B virus by PCR Negative (Neg); RSV by PCR Negative (Neg); SARS CoV2 RNA(COVID-19) InHosp NEGATIVE (Negative)
[2021-02-05] MEDS: propofoL 1,000 MG/100 ML VIAL IV SCH (19:30)
[2021-02-05 19:38] LABS: Albumin Level 3.7 gm/dl (3.4-5.0); BUN Creatinine Ratio 17.1 (10-20); Calcium 8.6 mg/dl (8.5-10.1); Creatinine Clr Calc Pharmacy 73.4 ml/min; Est GFR (African American) 66.1; Potassium 4.1 mmol/L (3.5-5.1)
[2021-02-05 19:41] LABS: Bilirubin,Total 0.6 mg/dl (0.2-1); Globulin 3.6 gm/dl (2.5-4.0); Total Protein 7.3 gm/dl (6.4-8.2)
[2021-02-05 19:42] LABS: Basophils # (auto) 0.02 K/uL (0-0.2); Basophils % (auto) 0.1 %; Eosinophils # (auto) 0.01 K/uL (0-0.5); Immature Granulocytes # (auto) 0.12 K/uL (0.00-0.02); Immature Granulocytes % (auto) 0.5 %; Lymphocytes # (auto) 1.99 K/uL (1.2-3.4); Lymphocytes % (auto) 8.9 %; Monocytes # (auto) 1.72 K/uL (0.11-0.59); Monocytes % (auto) 7.7 %; Neutrophils # (auto) 18.43 K/uL (1.4-6.5); Neutrophils % (auto) 82.8 %
[2021-02-05] MEDS ORDERED: MEPERIDINE HCL 25 MG/ML CARP/VIAL IV PRN (21:10)
[2021-02-05 21:36] LABS: Appearance Urine Turbid (Clear); Bacteria Urine Automated Negative (Negative); Blood Urine 3+ (Negative); Color Urine Dark Yellow; Epithelial Cell Urine Auto >30 /lpf (0-5); Glucose Urine UA Negative (Negative); Ketones Urine Negative (Negative); Leukocyte Esterase Urine 1+ (Negative); Nitrite Urine Negative (Negative); Protein Urine 2+ (Negative); RBC Urine Automated >30 /hpf (0-4); Specific Gravity Urine > 1.045 (1.000-1.030); Urobilinogen Urine Negative (Negative)
[2021-02-05 21:38] LABS: Bilirubin Urine 1+ (Negative)
[2021-02-05 21:50] LABS: Potassium Random Urine 128.3 mmol/L; Uric Acid Urine Random 80.5 mg/dl
[2021-02-05 22:00] LABS: Cast Urine Automated 0 /lpf (0-5)
--- NOTE | 2021-02-05 23:51 | Cardiac Catheterization ---
[facility] Data: Cda Teacher Cardiac Status Clinical evaluation leading to the procedure CAD Presenation: Non STEMI Anginal Classification: CCS IV Heart Failure: No Cardiogenic Shock within 24 Hours: No Cardiac Arrest within 24 Hours: No Imaging Studies Past 6 Months: No Stress Studies Past 6 Months: No Diagnostic Physicians Name: Foster Alexander MD Status: Urgent Closure Device Percutaneous Entry Location: Radial Closure Device: Radial Band Recommendations: PCI without planned CABG PCI Indication: PCI for high risk Non-YOVANY Lesion Segment Name: Proximal LAD Culprit Artery: Yes Stenosis Prior to Rx (%): 70 Chronic Total Occlusion: No IVUS: No FFR: No Pre-Procedure RICO Flow: 3 Previously Treated Lesion: No Lesion Complexity: Non-High/Non-C Lesion Length (mm): 12 Thrombus Present: Yes Bifurcation Lesion: No Guidewire Across Lesion: Stenosis Post-Procedure (%): 0 Post-Procedure RICO Flow: 3 Devices(s) Deployed: Yes Yes Intraprocedure Events Significant Disection: No Perforation: No Cardiac Cath Procedure Full Procedure Date February 05, 2021 Pre-Procedure Diagnosis Pre-Procedure Diagnosis: Arrhythmia and Cardiothoracic Symptom (Cardiac arrest) AUC Score AUC Score: 8 Post-Procedure Diagnosis Post-Procedure Diagnosis: Severe CAD, Successful PCI and Normal Intracardiac Pressures Procedure(s) Performed Procedure(s) Performed: Coronary Angiography, Left Heart Cath, Drug Eluting Stent, Ultrasound Guided Vascular Access and IVUS Electrical Assembly Supervisor Foster Alexander MD Floor Mechanic(s) Vinay Estimated Blood Loss Estimated Blood Loss: 15 Medication(s) Medication(s): Clopidogrel, Fentanyl, Heparin, Lidocaine 1%, Nicardipine, Nitroglycerin and Versed Summary of Findings Indication: Witnessed cardiac arrest post ROSC. Post ROSC ECG with dynamic ST c hanges. History of CAD post anterior STEMI 01/2016 with known severe residual circumflex disease. Access: 6 Fr right radial artery Catheters: [place], EBU 3.5 guide Findings: LM -Short, no significant disease LAD -70% proximal stenosis, mid LAD stent widely patent, 50 to 60% latemid stenosis, distal vessel without significant disease as wraps around apex. D1 with 80% proximal stenosis. Circumflex -100% proximal chronic occlusion. Left PDA, PLB's fill partially via left to left collaterals. Medium caliber high OM1 50% ostial, 80% proximal. No collaterals seen to prior OM 2. RCA -small, nondominant, diffuse disease up to 90% mid segment LVEDP -5 -- PCI -- Antithrombotic therapy: Heparin, ticagrelor Procedure: Left main cannulated with EBU 3.5 guide Head Waiter/Waitress 50 wire passed across lesion into mid LAD [place] IVUS catheter placed in mid LAD. Pullback revealed diffuse calcified disease with 70% stenosis proximally with eccentric calcified plaque and area of possible thrombus. No significant left main disease Second company pilot 50 wire placed into circumflex. Circumflex occlusion behaved like chronic calcified occlusion. Circumflex wire removed. Patient had RICO-3 flow in LAD but pain the setting of high risk proximal LAD lesion with questionable acute findings decision to proceed with PCI. Proximal LAD predilated with 2.5 compliant balloon Dilated lesion stented with 3.0 x 15 mm [place] drug-eluting stent Stent post-dilated with 3.5 noncompliant balloon IC vasodilators administered for spasm Post procedure RICO 3 flow, stent well expanded with mild residual stenosis and no apparent cardiac complications. Arterial Closure: TR band Post procedurecooling catheter placed to right common femoral vein under ultrasound guidance. Summary: 1. Severe multi-vessel coronary artery disease -70% proximal LAD with questionable thrombus by IVUS. Patent mid LAD stents. 50-60% late-mid LAD stenosis. D1 80% ostial stenosis 100% chronic total occlusion proximal circumflex. Left to left and faint right to left collaterals to left PDA, PLB's. High OM1 80% proximal Small, nondominant RCA diffuse disease up to 90% 2. Normal intracardiac filling pressure 3. Successful PCI of proximal LAD with single drug-eluting stent (3.0 x 15 mm [place]; postdilated with 3.5 NC). Recommendations: To ICU for postarrest targeted temperature management Trend troponin, check echocardiogram in a.m. Continue amiodarone infusion Loaded with ticagrelor 180 mg in Cda Teacher Continue dual-antiplatelet therapy for at least 1 year Proximal LAD lesion appeared to have acute thrombus but unclear if actually culprit vessel for cardiac arrest. High suspicion that inciting ventricular arrhythmia may have been scar mediated. Pending clinical course recommend evaluation for ICD. Hemodynamics Rest Ao:: 103/65/82 Final Ao: 104/64/81 LV: 107/5 Recommendations Recommendations: PCI without planned CABG Specimens Specimens: None Radiation Exposure (mGy) 3602 Contrast (mls) 170 Fluids (cc crystalloids) Fluids (cc crystalloids): 116 Drains Drains: none Anesthesia moderate [id number] Procedural Complication(s) None Disposition ICU I attest to the content of the Intraoperative Record and any orders documented therein. Any exceptions are noted below. [facility] Card Cath Procedure Codes Cardiac Catheterization Procedure 1: Cardiovascular Cath Procedures: 70707 Coronaries and LHC (+/-LV) Therapeutic Services & Ancillary Proc Procedure 1: Cardiovascular Tx and Anc Procedures: 27186 IV Ultrasound (Coronary or Graft) Procedure 2: Cardiovascular Tx and Anc Procedures: 94195 Ultrasonic Guidance Vascular Access Procedure 3: Cardiovascular Tx and Anc Procedures: 98163 Insertion Central Venous Catheter Moderate Sedation Procedure 1: Sedation/Anesthesia: 80953 Mod Sedation by the same physician;Init15 Min Child Age 5 & Up Procedure 2: Sedation/Anesthesia: 69570 Mod Sedation by the same physician; Ea Ricardo [email or web address] Minutes Stenting Procedure 1: Cardiovascular Stent Procedures: 47449 Perc transcatheter placement of intracoronary stent(s), with ang PG Care Time/CCT Total # of Minutes Spent Total Time Spent with Patient: Total time spent is greater than 50% in coordination of care (as documented) at patient's floor/unit and/or counseling patient:
[2021-02-05 23:52] LABS: Hematocrit (blood only) 43.4 % (42-52); Hemoglobin 14.7 g/dL (14.0-18.0); Mean Corpuscular Hemoglobin 31.1 pg (25-34); Mean Corpuscular Hgb Conc 33.9 g/dL (32-36); Mean Corpuscular Volume 91.8 fL (80-100); Mean Platelet Volume 10.2 fL (7.4-10.4); Platelet Count 215 K/uL (130-400); RDW Coefficient of Variation 13.2 % (11.5-14.5); RDW Standard Deviation 44.1 fL (36.4-46.3); Red Blood Count 4.73 M/uL (4.7-6.1)
[2021-02-05 23:55] LABS: Allen Test Pos (Pos); Base Excess ABG -6.2 mEq/L (-9-1.8); HCO3 ABG 18 mmol/L (19-24); Oxygen Saturation ABG 96.2 % (90-95); PCO2 ABG 32 mmHg (35-46); PO2 ABG 82 mmHg (80-95); pH ABG 7.36 (7.35-7.45)
[2021-02-06 00:03] LABS: INR 1.2 (0.9-1.1); Prothrombin Time 11.7 Seconds (9.0-12.0)
[2021-02-06 00:10] LABS: BUN Creatinine Ratio 20.8 (10-20); Calcium 8.2 mg/dl (8.5-10.1); Creatinine Clr Calc Pharmacy 75.4 ml/min; Est GFR (African American) 72.1; Est GFR (Non-African American) 62.2; Potassium 4.6 mmol/L (3.5-5.1)
[2021-02-06] MEDS ORDERED: PHARMACY GLYCEMIC MGMT CONSULT PRN (00:35)
[2021-02-06 00:36] LABS: Troponin I 16.2 ng/ml (0-0.045)
[2021-02-06] MEDS ORDERED: DEXTROSE 50% 50 ML SYRINGE IV PRN (00:45)
[2021-02-06] MEDS ORDERED: GLUCAGON FOR INJ 1 MG VIAL IM PRN (00:45)
[2021-02-06] MEDS ORDERED: CARBOHYDRATES FOR HYPOGLYCEMIA PO PRN (00:45)
[2021-02-06] MEDS ORDERED: GLUCOSE 10 TABS/TUBE PO PRN (00:45)
[2021-02-06] MEDS ORDERED: GLUCOSE 40% GEL 15 GM TUBE PO PRN (00:45)
[2021-02-06] MEDS: propofoL 1,000 MG/100 ML VIAL IV SCH ×8 (00:46→21:05)
[2021-02-06] MEDS: INSULIN ASPART 100 UNITS/ML 3 ML PEN SC SCH ×6 (00:48→20:30)
[2021-02-06] MEDS: SODIUM CHLORIDE 0.9% 1000ML 1,000 ML IV SCH ×3 (01:26→19:38)
[2021-02-06 02:15] LABS: Base Excess ABG -5.2 mEq/L (-9-1.8); HCO3 ABG 18 mmol/L (19-24); Oxygen Saturation ABG 96.9 % (90-95); PCO2 ABG 29 mmHg (35-46); PO2 ABG 85 mmHg (80-95); pH ABG 7.41 (7.35-7.45)
[2021-02-06 02:17] LABS: Allen Test POS (Pos)
[2021-02-06] MEDS: AMIODARONE / D5W 360 MG/200 ML BAG IV SCH ×3 (03:16→17:45)
[2021-02-06] MEDS: TICAGRELOR 90 MG TAB PO SCH ×2 (03:17→20:31)
[2021-02-06 05:46] LABS: Hematocrit (blood only) 41.3 % (42-52); Hemoglobin 14.1 g/dL (14.0-18.0); Mean Corpuscular Hemoglobin 31.3 pg (25-34); Mean Corpuscular Hgb Conc 34.1 g/dL (32-36); Mean Corpuscular Volume 91.8 fL (80-100); Mean Platelet Volume 10.3 fL (7.4-10.4); Platelet Count 202 K/uL (130-400); RDW Coefficient of Variation 13.3 % (11.5-14.5); RDW Standard Deviation 44.8 fL (36.4-46.3); White Blood Count 15.85 K/uL (4.8-10.8)
[2021-02-06 05:56] LABS: INR 1.1 (0.9-1.1); Prothrombin Time 11.2 Seconds (9.0-12.0)
[2021-02-06 06:09] LABS: BUN Creatinine Ratio 24.8 (10-20); Creatinine Clr Calc Pharmacy 84.5 ml/min; Est GFR (African American) 82.8; Est GFR (Non-African American) 71.5; Potassium 3.9 mmol/L (3.5-5.1); Troponin I 18.4 ng/ml (0-0.045)
[2021-02-06] MEDS ORDERED: POTASSIUM CHLORIDE / WTR 20 MEQ/100 ML PLCT IV ONE (06:22)
--- NOTE | 2021-02-06 07:12 | XRay Report ---
XR chest 1V portable CLINICAL HISTORY: Respiratory failure. COMPARISON STUDY: Chest radiograph February 05, 2021. FINDINGS: Tip of endotracheal tube 4 cm above the tessa. Tip of nasogastric tube is within the dista l body of the stomach. Cardiomegaly is unchanged. There is no pneumothorax. There are suspected trace bilateral pleural effusions. There is pleural vascular congestion with suspected mild pulmonary rafaela a. This is similar to prior exam. Bibasilar opacities persist. IMPRESSION: 1. Satisfactory position of lines and tubes. 2. No significant change is suspected mild pulmonary edema with trace bilateral pleural effusions an d bibasilar opacities. ACT 112: Negative or not required by law. Electronically signed by: Nash Sarah M.D. 02/06/2021 7:11 AM
[2021-02-06 07:45] LABS: Base Excess ABG -6.2 mEq/L (-9-1.8); HCO3 ABG 19 mmol/L (19-24); Oxygen Saturation ABG 95.3 % (90-95); PCO2 ABG 35 mmHg (35-46); PO2 ABG 75 mmHg (80-95); pH ABG 7.34 (7.35-7.45)
[2021-02-06 07:46] LABS: Allen Test Art Line (Pos)
--- NOTE | 2021-02-06 07:55 | Electrocardiogram Report ---
Test Reason : Blood Pressure : / mmHG Vent. Rate : 103 BPM Atrial Rate : 103 BPM P-R Int : 156 ms QRS Dur : 128 ms QT Int : 374 ms P-R-T Axes : 048 067 210 degrees QTc Int : 489 ms Sinus tachycardia Non-specific intra-ventricular conduction block Possible Anteroseptal infarct Nonspecific ST and T wave abnormality Abnormal ECG When compared with ECG of 12-FEB-2016 06:55, Vent. rate has increased BY [address] now depressed in Lateral leads T wave inversion no longer evident in Anterior leads Confirmed by Tyrel Montana ([id number]) on 02/06/2021 7:55:16 AM Referred By: REFERRED SELF Confirmed By:Tyrel Montana
--- NOTE | 2021-02-06 08:03 | Electrocardiogram Report ---
Test Reason : Blood Pressure : / mmHG Vent. Rate : 065 BPM Atrial Rate : 065 BPM P-R Int : 168 ms QRS Dur : 114 ms QT Int : 470 ms P-R-T Axes : 053 024 179 degrees QTc Int : 488 ms Poor data quality, interpretation may be adversely affected Sinus rhythm with Premature ventricular complexes Inferior infarct Abnormal ECG When compared with ECG of 05-FEB-2021 15:13, Possible Inferior infarct is now Present Premature ventricular complexes are now Present Confirmed by Tyrel Montana ([id number]) on 02/06/2021 8:03:01 AM Referred By: REFERRED SELF Confirmed By:Tyrel Montana
[2021-02-06] MEDS: NOREPINEPHRINE/D5W 8 MG/508 ML BAG IV SCH ×2 (08:37→13:47)
[2021-02-06] MEDS ORDERED: ASPIRIN 81 MG ECTAB PO SCH (09:00)
[2021-02-06] MEDS: HEPARIN SOD 5,000 UNIT/0.5 ML VIAL SQ SCH ×2 (09:13→20:31)
[2021-02-06] MEDS: ATORVASTATIN 40 MG TAB PO SCH (09:13)
[2021-02-06] MEDS: fentaNYL DRIP 1,250 MCG/250 ML BAG IV SCH ×2 (09:13→20:29)
[2021-02-06] MEDS: PROPOFOL BOLUS FROM BAG IV PRN ×4 (09:33→17:45)
--- NOTE | 2021-02-06 09:36 | Pharmacy Report ---
Pharmacy Glycemic Short Note 2 - Date of Service February 06, 2021 - Glycemic Short BSG Results (Last 24 hours): 02/05/21 02/05/21 02/05/21 15:14 15:15 19:12 Glucose 255 H 182 H POC Glucose POC Glucose (other) 249 H 02/05/21 02/05/21 02/06/21 19:13 23:42 04:40 Glucose 190 H POC Glucose 172 H 141 H POC Glucose (other) 02/06/21 02/06/21 05:36 08:33 Glucose 151 H POC Glucose POC Glucose (other) 136 H OUTPATIENT ANTIDIABETIC REGIMEN: * None * HbA1c = 5.6% (12/10/20) ASSESSMENT: * 65 yo admitted yesterday s/p cardiac arrest. Pharmacy has been consulted to as sist with inpatient glycemic management. * Patient is ventilated and sedated with propofol and fentanyl. He is running Levophed as well as Amiodarone drips. * Showed some hyperglycemia upon admission, likely stress induced. * BSGs: 249-172-190 mg/dL * Fasting BSG was 136 mg/dL this AM. * Patient has received 2 units of Novolog total to this point since admission. * Will continue to follow in the event he is started on tube feeds. PLAN FOR INPATIENT GLYCEMIC CONTROL: * Basal insulin * None * Bolus insulin * NovoLog per scale ACHS or Q6hrs while NPO * Goal Range: Low 120 mg/dL - High 160 mg/dL * Correction Factor: 20 mg/dL/unit * Nutritional / Prandial insulin per carb ratio of 1 unit per 7 grams CHO consumed PLAN FOR DISCHARGE: * HbA1c is well controlled and patient is not a diabetic. No medications will be needed at discharge.
[2021-02-06] MEDS ORDERED: Nursing to Pharmacy Communication SCH (09:45)
--- NOTE | 2021-02-06 09:45 | Electrocardiogram Report ---
Test Reason : Blood Pressure : / mmHG Vent. Rate : 066 BPM Atrial Rate : 066 BPM P-R Int : 168 ms QRS Dur : 114 ms QT Int : 476 ms P-R-T Axes : 057 010 148 degrees QTc Int : 499 ms Sinus rhythm with Premature ventricular complexes Inferior infarct (cited on or before 05-FEB-2021) Nonspecific T wave abnormality Abnormal ECG When compared with ECG of 05-FEB-2021 18:03, (unconfirmed) No significant change was found Confirmed by Remberto Dumont ([id number]) on 02/06/2021 9:45:53 AM Referred By: REFERRED SELF Confirmed By:Remberto Dumont
--- NOTE | 2021-02-06 09:49 | Electrocardiogram Report ---
Test Reason : Blood Pressure : / mmHG Vent. Rate : 052 BPM Atrial Rate : 052 BPM P-R Int : 178 ms QRS Dur : 110 ms QT Int : 518 ms P-R-T Axes : 048 007 130 degrees QTc Int : 481 ms Sinus bradycardia Inferior infarct (cited on or before 05-FEB-2021) Nonspecific T wave abnormality Abnormal ECG When compared with ECG of 05-FEB-2021 22:04, (unconfirmed) Premature ventricular complexes are no longer Present Confirmed by Remberto Dumont ([id number]) on 02/06/2021 9:49:07 AM Referred By: REFERRED SELF Confirmed By:Remberto Dumont
[2021-02-06] MEDS: ASPIRIN 81 MG CHEW PO SCH (10:30)
--- NOTE | 2021-02-06 10:48 | Critical Care Progress Note ---
Date of Service February 06, 2021 Assessment & Plan (1) Cardiac arrest: Reason for critical illness: 55-year-old male past medical history of coronary artery disease s/p NV in 2016 was brought to the ED after cardiac arrest on the field. He had V. fib and V. tach for which he was defibrillated multiple times and given 200 mg of lidocaine. He also got 5 rounds of epi. In the ED he had ROSC. He was taken to [facility] and stent was placed in proximal LAD. He is in MICU for further care --Cardiac arrest Patient had multiple V. fib and V. tach Patient was taken to [facility] Proximal LAD stent placed in Patient had multiple vessel disease On hypothermia protocol EKG 02/05/2021 done in the ED: Sinus tachycardia, normal axis, no ST-T wave changes appreciated -- VDRF Likely secondary to cardiac arrest for airway protection Continue with ventilatory support Keep RASS -1 -- AMI Improving Monitor BUN/creatinine Avoid nephrotoxic medications Strict ins and outs -- Leukocytosis Likely reactive to cardiac arrest --> trending down Monitor --Prophylaxis VTE: Heparin GI: Protonix Lines: Right femoral, left radial, positive Casarez Diet: N.p.o. Plan: In/out: +1199, urine output 776 Lactic acidosis improving. Continue with normal saline for the time being. Patient's bradycardia is likely from propofol along with amiodarone. If need be will titrate off propofol. Change amiodarone to 0.5mg/h for 18 hours and then stop. Keep a close eye on urine output. If the patient is not making enough urine in the next 12 hours we will give a dose of Lasix. Continue with hypothermia protocol. Continue with ICU hyperglycemia protocol. Troponin is still trending up. Continue to trend. I have personally spent 38 minutes of critical care time in the direct management of this patient. This is a life/limb threatening event. This includes time spent evaluating patient, direct bedside care, chart review, placing orders, interpretation of diagnostic studies, discussion with consultants, patient, and family members, as well as other required patient management activities. This time is exclusive of all separately billable procedures, and teaching time and separate from and in addition to any other critical care service time. Please note the above document was generated using voice recognition software. It may contain grammatical, syntax or spelling errors. (2) CAD (coronary artery disease): (3) AMI (acute kidney injury): (4) High anion gap metabolic acidosis: Admission and Anticipated Discharge Date Admission Date: February 05, 2021 Subjective Patient seen and examined at bedside. No acute distress. No adverse events overnight. Patient is on hypothermia protocol. He was on fentanyl 75, propofol 30 the time of examination Saturating 100% on 30% FiO2 Breathing with vent. On amiodarone drip. Review of Systems Review of Systems: Unobtainable due to endotracheal tube Physical Exam Physical Exam: Constitutional: No acute distress HEENT: PERRLA Respiratory system: Decreased air entry bilaterally, no wheeze, no rhonchi, positive crackles bilateral lower lobe CVS: S1-S2 positive, no murmurs or gallops, bradycardia Abdomen: Soft, nontender, nondistended, positive bowel sounds x4, obese Extremities: +2 pulses bilaterally radialis/ dorsalis pedis, no cyanosis, no e chente Neuro: Breathing with vent, positive pupillary, positive corneal Psych: Unable to assess G/U: Positive Casarez Skin: no rashes, warm and dry Lymphatic: no cervical or axillary lymphadenopathy Results & Data Results & Data ([facility]) Vital Signs (Past 12 Hours) Vital Signs Temp Temp Pulse Resp BP BP Pulse Ox 02/06/21 10:00 47 L 02/06/21 09:00 35 C L 49 L 18 97/53 L 150/85 H 99 02/06/21 08:00 35.1 C L 35 C L 49 L 16 96/55 L 137/75 98 02/06/21 07:15 51 L 16 98 02/06/21 07:00 35 C L 50 L 16 142/78 H 98 02/06/21 06:00 35.1 C L 50 L 16 151/81 H 96 02/06/21 05:00 35 C L 50 L 16 150/80 H 100 02/06/21 04:26 51 L 16 100 02/06/21 04:00 34.8 C L 35 C L 50 L 16 136/84 100 02/06/21 03:00 35.1 C L 52 L 20 138/81 100 02/06/21 02:00 35.1 C L 54 L 20 130/82 100 02/06/21 01:36 55 L 20 100 04/25/21 01:00 35 C L 57 L 20 129/78 100 02/06/21 00:00 35 C L 35 C L 60 20 121/83 100 02/05/21 23:00 35 C L 61 20 138/100 100 02/06/21 05:36 02/06/21 05:36 Coding Level of Care Code Critical Care 1st 30-74 mins Diagnoses Cardiac arrest I46.9 CAD (coronary artery disease) I25.10 AMI (acute kidney injury) N17.9 High anion gap metabolic acidosis E87.2 Time Spent (min) 38
[2021-02-06] MEDS ORDERED: 0.2 MICRON FILTER SET 1 EA IV ONE (11:24)
[2021-02-06 12:03] LABS: Hematocrit (blood only) 38.9 % (42-52); Hemoglobin 13.6 g/dL (14.0-18.0); Mean Corpuscular Hemoglobin 31.8 pg (25-34); Mean Corpuscular Volume 90.9 fL (80-100); Mean Platelet Volume 10.3 fL (7.4-10.4); Platelet Count 187 K/uL (130-400); RDW Coefficient of Variation 13.6 % (11.5-14.5); Red Blood Count 4.28 M/uL (4.7-6.1); White Blood Count 14.58 K/uL (4.8-10.8)
[2021-02-06 12:06] LABS: Allen Test ALINE (Pos); Base Excess ABG -5.2 mEq/L (-9-1.8); HCO3 ABG 19 mmol/L (19-24); PCO2 ABG 32 mmHg (35-46); PO2 ABG 87 mmHg (80-95); pH ABG 7.39 (7.35-7.45)
[2021-02-06 12:20] LABS: BUN Creatinine Ratio 28.6 (10-20); Calcium 7.8 mg/dl (8.5-10.1); Creatinine Clr Calc Pharmacy 99.5 ml/min; Est GFR (African American) 100.7; Est GFR (Non-African American) 86.9; INR 1.1 (0.9-1.1); Potassium 4.1 mmol/L (3.5-5.1); Prothrombin Time 11.2 Seconds (9.0-12.0)
[2021-02-06] MEDS: PANTOprazole 40 MG in SYRINGE 0 ML IV SCH (12:21)
[2021-02-06 12:31] LABS: Troponin I 16.5 ng/ml (0-0.045)
--- NOTE | 2021-02-06 13:55 | Cardiology Progress Note ---
Date of Service February 06, 2021 Assessment & Plan (1) Cardiac arrest: 2. Multivessel CAD - Severe proximal LAD post PCI - 100% dominant circumflex chronic occlusion 3. Severe ICM -- EF 20%, with thinned akinetic inferolateral, lateral, inferior ohara. 4. Sinus bradycardia 5. Hypotension -- Continued targeted temperature management per ICU -- Hemodynamic support as needed with levophed to MAPs >65 -- Continue ASA/Ticagrelor, statin -- Continue amiodarone load at 0.5 mg overnight -- pending acute clinic course - ICD candidate usp. Admission and Anticipated Discharge Date Admission Date: February 05, 2021 Subjective Intubated, sedated and being cooled to 35. With pause in sedation, started to move but unclear if purposeful. Sinus bradycardia on telemetry. No recurrent ventricular ectopy. UOP 170 today over last 6 hrs MAPs 55-60. Troponin peaked at 18. Lactate downtrending to 2 Review of Systems Review of Systems: Unobtainable due to endotracheal tube Physical Exam Constitutional: Intubated, sedated, appears comfortable Eyes: + scleral abnormality and PERRL Respiratory: Auscultation: + diminished lung sounds (anteriorly bilaterally) Cardiovascular: Rate/Rhythm: + bradycardic Heart Sounds: no murmur Vessels: radial pulses present (non-palpable on RT. No hematoma); + posterior tibial pulses abnormal and + dorsalis pedis pulses abnormal Extremities: no edema Gastrointestinal (Abdomen): Percussion/Palpation: abdomen soft Skin: no rashes, warm and dry Results & Data ([facility]) Vital Signs (Past 12 Hours) Vital Signs Temp Temp Pulse Resp BP BP Pulse Ox 02/06/21 12:00 95 F L 47 L 18 93/51 L 140/77 99 02/06/21 11:20 47 L 18 98 02/06/21 11:00 95 F L 46 L 18 86/47 L 134/71 99 02/06/21 10:00 95 F L 47 L 18 96/54 L 130/73 100 02/06/21 09:00 95 F L 49 L 18 97/53 L 150/85 H 99 02/06/21 08:00 95.2 F L 95 F L 49 L 16 96/55 L 137/75 98 02/06/21 07:15 51 L 16 98 02/06/21 07:00 95 F L 50 L 16 142/78 H 98 02/06/21 06:00 95.2 F L 50 L 16 151/81 H 96 02/06/21 05:00 95 F L 50 L 16 150/80 H 100 02/06/21 04:26 51 L 16 100 02/06/21 04:00 94.6 F L 95 F L 50 L 16 136/84 100 02/06/21 03:00 95.2 F L 52 L 20 138/81 100 02/06/21 02:00 95.2 F L 54 L 20 130/82 100 PG Care Time/CCT Total # of Minutes Spent Total Time Spent with Patient: Total time spent is greater than 50% in coordination of care (as documented) at patient's floor/unit and/or counseling patient: Coding Level of Care Code 56987 Subseq Hosp Care Lvl 3 Diagnoses Cardiac arrest I46.9
[2021-02-06] MEDS ORDERED: FUROSEMIDE 40 MG in SYRINGE 0 ML IV ONE (16:00)
--- NOTE | 2021-02-06 16:35 | Hospitalist Progress Note ---
Date of Service February 06, 2021 Assessment & Plan (1) Sudden : While mowing the lawn. Initial rhythm was vfib, then Vtach, s/p multiple epinephrine & lidocaine pushes and defibrillation. - LHC with Dr. Alexander on 02/05 showed 70% LAD lesion proximal to his prior stent and had LUCIANA placed; however, Dr. Alexander feels this arrest was more likely an arrhythmia stemming from prior SD and not a ACS that caused an arrhythmia. - Presently in ICU undergoing cooling protocol. Defer code Arctic protocol to soaking tank worker and cardiology Troponin peaked at 18 and trending down Lactic acidosis is resolved Echocardiogram here with severe ischemic cardiomyopathy, EF 20% with an akinetic inferolateral, lateral, inferior ohara -Continue amiodarone loading drip May need ICD long-term pending acute clinical course as per cardiology -Remains intubated, to be rewarmed starting this evening (2) AMI (acute kidney injury): Baseline Cr ~1.0. - Cr on admission was 1.7, likely ATN from cardiac arrest. - IV fluids per ICU team and now creatinine back to normal Follow BMP -Giving IV Lasix to improve urine output while continuing normal saline at 100 mL/h as per soaking tank worker (3) Ventricular tachycardia: As above (4) Ventricular fibrillation: As above (5) High anion gap metabolic acidosis: Secondary to lactic acidosis Now improved (6) Ischemic cardiomyopathy: As above EF 15-20% -Continue hemodynamic support as needed with Levophed for maps greater than 65 for now Eventually will need guideline directed therapy and possible ICD as above (7) Sinus bradycardia: Possibly secondary to profile? As per soaking tank worker Follow on telemetry (8) Hypotension: Likely secondary to sedation and not necessarily cardiogenic shock -Levophed as needed (9) CAD (coronary artery disease): Per cardiology note, had a prior LAD SD with previous stent placement. PCI on 02/05 as above with new proximal LAD stent. - Continue ASA, statin, but holding beta-geraldine, ARB for now (10) HTN (hypertension): Presently on pressors per ICU. As above (11) DVT prophylaxis: Aspirin, Brilinta, SCDs, SQ heparin GI prophylaxis-IV PPI Hajod-H-cgar, femoral line for cooling, Casarez catheter, OG tube Disposition-continued stay in ICU, guarded prognosis Admission and Anticipated Discharge Date Admission Date: February 05, 2021 Subjective Patient intubated and sedated, continues to be cooling. Was taken off sedation this morning at least for a short period as per RN and had some muscle twitching but no purposeful movement. His urine output is low throughout the day, and he remains on amiodarone drip. He was also started on some Levophed for lower blood pressures while on sedation with propofol. Review of Systems Review of Systems: Unobtainable due to endotracheal tube and Unobtainable due to reduced consciousness Physical Exam Constitutional: WD/WN, vitals as above ENMT: ET tube in place Neck: trachea midline, no thyromegaly Respiratory: normal respiratory effort, lungs clear to auscultation Cardiovascular: Rate/Rhythm: regular rate and regular rhythm Heart Sounds: no murmur Extremities: + edema (Trace pitting edema in the legs bilaterally) Chest (Breasts): Chest: normal inspection of chest Gastrointestinal (Abdomen): normal bowel sounds, soft, nontender, no hepatosplenomegaly Musculoskeletal: Extremities: extremities normal to inspection; no cyanosis and no clubbing Skin: no rashes, warm and dry Neurologic: + obtunded Results & Data Results & Data ([facility]) Vital Signs (Past 12 Hours) Vital Signs Temp Temp Pulse Resp BP BP BP 02/06/21 16:00 35 C L 55 L 18 96/50 L 180/100 H 101/53 L 02/06/21 15:50 53 L 18 02/06/21 15:00 35 C L 51 L 18 96/50 L 150/76 H 02/06/21 14:00 35 C L 46 L 18 103/52 L 136/76 02/06/21 13:00 35 C L 48 L 18 92/49 L 132/72 02/06/21 12:00 35 C L 47 L 18 93/51 L 140/77 02/06/21 11:20 47 L 18 02/06/21 11:00 35 C L 46 L 18 86/47 L 134/71 02/06/21 10:00 35 C L 47 L 18 96/54 L 130/73 02/06/21 09:00 35 C L 49 L 18 97/53 L 150/85 H 02/06/21 08:00 35.1 C L 35 C L 49 L 16 96/55 L 137/75 02/06/21 07:15 51 L 16 02/06/21 07:00 35 C L 50 L 16 142/78 H 02/06/21 06:00 35.1 C L 50 L 16 151/81 H 02/06/21 05:00 35 C L 50 L 16 150/80 H Pulse Ox 02/06/21 16:00 96 02/06/21 15:50 96 02/06/21 15:00 96 02/06/21 14:00 99 02/06/21 13:00 98 02/06/21 12:00 99 02/06/21 11:20 98 02/06/21 11:00 99 02/06/21 10:00 100 02/06/21 09:00 99 02/06/21 08:00 98 02/06/21 07:15 98 02/06/21 07:00 98 02/06/21 06:00 96 02/06/21 05:00 100 Laboratory Results 02/06/21 02/06/21 02/06/21 Range/Units 17:16 17:16 17:15 WBC 18.74 H (4.8-10.8) K/uL RBC 4.41 L (4.7-6.1) M/uL Hgb 13.7 L (14.0-18.0) g/dL Hct 40.2 L (42-52) % MCV 91.2 (80-100) fL MCH 31.1 (25-34) pg MCHC 34.1 (32-36) g/dL RDW Std Deviation 45.0 (36.4-46.3) fL RDW Coeff of Linda 13.6 (11.5-14.5) % Plt Count 216 (130-400) K/uL MPV 10.1 (7.4-10.4) fL Immature Gran % (Auto) % Neut % (Auto) % Lymph % (Auto) % [place] % (Auto) % Eos % (Auto) % Baso % (Auto) % Neut # (Auto) (1.4-6.5) K/uL Lymph # (Auto) (1.2-3.4) K/uL [place] # (Auto) (0.11-0.59) K/uL Eos # (Auto) (0-0.5) K/uL Baso # (Auto) (0-0.2) K/uL Immature Gran # (Auto) (0.00-0.02) K/uL PT 10.9 (9.0-12.0) Seconds INR 1.1 (0.9-1.1) Activ Coag Time Kaolin (94-140) SECONDS POC pH (7.35-7.45) POC pCO2 (35-46) mmHg POC pO2 (80-95) mmHg POC HCO3 (19-24) eder/L POC Total CO2 (24-31) mmol/L POC Base Excess (-9-1.8) eder/L ABG pH (7.35-7.45) ABG pCO2 (35-46) mmHg ABG pO2 (80-95) mmHg ABG HCO3 (19-24) mmol/L POC ABG O2 Sat (90-95) % ABG O2 Saturation (90-95) % ABG Base Excess (-9-1.8) mEq/L [place] Test (Pos) Barometric Pressure mm/Hg Oxygen Given Sodium Pending (136-145) mmol/L Potassium Pending (3.5-5.1) mmol/L Chloride Pending (98-107) mmol/L Carbon Dioxide Pending (21-32) mmol/L Anion Gap Pending (3-11) BUN Pending (7-18) mg/dl Creatinine Pending (0.6-1.4) mg/dl Est Cr Clr Drug Dosing Pending ml/min Est GFR ( Amer) Pending Est GFR (Non-Af Amer) Pending BUN/Creatinine Ratio Pending (10-20) Glucose Pending (70-99) mg/dl POC Glucose (70-99) mg/dl POC Glucose (other) (70-99) mg/dl Estimat Average Glucose Hemoglobin A1c Lactate (0.4-2.0) mmol/L Calcium Pending (8.5-10.1) mg/dl Total Bilirubin (0.2-1) mg/dl AST (15-37) U/L ALT (12-78) U/L Alkaline Phosphatase (45-117) U/L Troponin I (0-0.045) ng/ml Total Protein (6.4-8.2) gm/dl Albumin (3.4-5.0) gm/dl Globulin (2.5-4.0) gm/dl Albumin/Globulin Ratio (0.9-2) Urine Color Urine Appearance (Clear) Urine pH (4.5-7.5) Ur Specific [place] (1.000-1.030) Urine Protein (Negative) Urine Glucose (UA) (Negative) Urine Ketones (Negative) Urine Blood (Negative) Urine Nitrite (Negative) Urine Bilirubin (Negative) Urine Urobilinogen (Negative) Ur Leukocyte Esterase (Negative) Urine WBC (Auto) (0-5) /hpf Urine RBC (Auto) (0-4) /hpf U Hyaline Cast (Auto) (0-5) /lpf U Epithel Cells (Auto) (0-5) /lpf Urine Bacteria (Auto) (Negative) Urine Osmolality (500-800) mOsm/kg Ur Random Creatinine mg/dl Ur Random Sodium mmol/L Ur Random Potassium mmol/L Ur Random Chloride mmol/L Ur Random Uric Acid mg/dl Nasal Screen MRSA (PCR) (Negative) Stl C. diff Tox B Gene (Neg) COVID-19 Eval Order SARS-CoV-2 (PCR) (Negative) Influenza Type A (PCR) (Neg) Influenza Type B (PCR) (Neg) RSV (RT-PCR) (Neg) 02/06/21 02/06/21 02/06/21 Range/Units 11:58 11:52 11:52 WBC (4.8-10.8) K/uL RBC (4.7-6.1) M/uL Hgb (14.0-18.0) g/dL Hct (42-52) % MCV (80-100) fL MCH (25-34) pg MCHC (32-36) g/dL RDW Std Deviation (36.4-46.3) fL RDW Coeff of Linda (11.5-14.5) % Plt Count (130-400) K/uL MPV (7.4-10.4) fL Immature Gran % (Auto) % Neut % (Auto) % Lymph % (Auto) % [place] % (Auto) % Eos % (Auto) % Baso % (Auto) % Neut # (Auto) (1.4-6.5) K/uL Lymph # (Auto) (1.2-3.4) K/uL [place] # (Auto) (0.11-0.59) K/uL Eos # (Auto) (0-0.5) K/uL Baso # (Auto) (0-0.2) K/uL Immature Gran # (Auto) (0.00-0.02) K/uL PT (9.0-12.0) Seconds INR (0.9-1.1) Activ Coag Time Kaolin (94-140) SECONDS POC pH (7.35-7.45) POC pCO2 (35-46) mmHg POC pO2 (80-95) mmHg POC HCO3 (19-24) eder/L POC Total CO2 (24-31) mmol/L POC Base Excess (-9-1.8) eder/L ABG pH 7.39 (7.35-7.45) ABG pCO2 32 L (35-46) mmHg ABG pO2 87 (80-95) mmHg ABG HCO3 19 (19-24) mmol/L POC ABG O2 Sat (90-95) % ABG O2 Saturation 97.0 H (90-95) % ABG Base Excess -5.2 (-9-1.8) mEq/L [place] Test EBEN (Pos) Barometric Pressure 727.2 mm/Hg Oxygen Given VENT Sodium 142 (136-145) mmol/L Potassium 4.1 (3.5-5.1) mmol/L Chloride 113 H (98-107) mmol/L Carbon Dioxide 21 (21-32) mmol/L Anion Gap 8.0 (3-11) BUN 26 H (7-18) mg/dl Creatinine 0.91 (0.6-1.4) mg/dl Est Cr Clr Drug Dosing 99.5 ml/min Est GFR ( Amer) 100.7 Est GFR (Non-Af Amer) 86.9 BUN/Creatinine Ratio 28.6 H (10-20) Glucose 126 H (70-99) mg/dl POC Glucose (70-99) mg/dl POC Glucose (other) 123 H (70-99) mg/dl Estimat Average Glucose Hemoglobin A1c Lactate (0.4-2.0) mmol/L Calcium 7.8 L (8.5-10.1) mg/dl Total Bilirubin (0.2-1) mg/dl AST (15-37) U/L ALT (12-78) U/L Alkaline Phosphatase (45-117) U/L Troponin I 16.500 H* (0-0.045) ng/ml Total Protein (6.4-8.2) gm/dl Albumin (3.4-5.0) gm/dl Globulin (2.5-4.0) gm/dl Albumin/Globulin Ratio (0.9-2) Urine Color Urine Appearance (Clear) Urine pH (4.5-7.5) Ur Specific [place] (1.000-1.030) Urine Protein (Negative) Urine Glucose (UA) (Negative) Urine Ketones (Negative) Urine Blood (Negative) Urine Nitrite (Negative) Urine Bilirubin (Negative) Urine Urobilinogen (Negative) Ur Leukocyte Esterase (Negative) Urine WBC (Auto) (0-5) /hpf Urine RBC (Auto) (0-4) /hpf U Hyaline Cast (Auto) (0-5) /lpf U Epithel Cells (Auto) (0-5) /lpf Urine Bacteria (Auto) (Negative) Urine Osmolality (500-800) mOsm/kg Ur Random Creatinine mg/dl Ur Random Sodium mmol/L Ur Random Potassium mmol/L Ur Random Chloride mmol/L Ur Random Uric Acid mg/dl Nasal Screen MRSA (PCR) (Negative) Stl C. diff Tox B Gene (Neg) COVID-19 Eval Order SARS-CoV-2 (PCR) (Negative) Influenza Type A (PCR) (Neg) Influenza Type B (PCR) (Neg) RSV (RT-PCR) (Neg) 02/06/21 02/06/21 02/06/21 Range/Units 11:52 11:52 08:33 WBC 14.58 H (4.8-10.8) K/uL RBC 4.28 L (4.7-6.1) M/uL Hgb 13.6 L (14.0-18.0) g/dL Hct 38.9 L (42-52) % MCV 90.9 (80-100) fL MCH 31.8 (25-34) pg MCHC 35.0 (32-36) g/dL RDW Std Deviation 45.0 (36.4-46.3) fL RDW Coeff of Linda 13.6 (11.5-14.5) % Plt Count 187 (130-400) K/uL MPV 10.3 (7.4-10.4) fL Immature Gran % (Auto) % Neut % (Auto) % Lymph % (Auto) % [place] % (Auto) % Eos % (Auto) % Baso % (Auto) % Neut # (Auto) (1.4-6.5) K/uL Lymph # (Auto) (1.2-3.4) K/uL [place] # (Auto) (0.11-0.59) K/uL Eos # (Auto) (0-0.5) K/uL Baso # (Auto) (0-0.2) K/uL Immature Gran # (Auto) (0.00-0.02) K/uL PT 11.2 (9.0-12.0) Seconds INR 1.1 (0.9-1.1) Activ Coag Time Kaolin (94-140) SECONDS POC pH (7.35-7.45) POC pCO2 (35-46) mmHg POC pO2 (80-95) mmHg POC HCO3 (19-24) eder/L POC Total CO2 (24-31) mmol/L POC Base Excess (-9-1.8) eder/L ABG pH (7.35-7.45) ABG pCO2 (35-46) mmHg ABG pO2 (80-95) mmHg ABG HCO3 (19-24) mmol/L POC ABG O2 Sat (90-95) % ABG O2 Saturation (90-95) % ABG Base Excess (-9-1.8) mEq/L [place] Test (Pos) Barometric Pressure mm/Hg Oxygen Given Sodium (136-145) mmol/L Potassium (3.5-5.1) mmol/L Chloride (98-107) mmol/L Carbon Dioxide (21-32) mmol/L Anion Gap (3-11) BUN (7-18) mg/dl Creatinine (0.6-1.4) mg/dl Est Cr Clr Drug Dosing ml/min Est GFR ( Amer) Est GFR (Non-Af Amer) BUN/Creatinine Ratio (10-20) Glucose (70-99) mg/dl POC Glucose (70-99) mg/dl POC Glucose (other) 136 H (70-99) mg/dl Estimat Average Glucose Hemoglobin A1c Lactate (0.4-2.0) mmol/L Calcium (8.5-10.1) mg/dl Total Bilirubin (0.2-1) mg/dl AST (15-37) U/L ALT (12-78) U/L Alkaline Phosphatase (45-117) U/L Troponin I (0-0.045) ng/ml Total Protein (6.4-8.2) gm/dl Albumin (3.4-5.0) gm/dl Globulin (2.5-4.0) gm/dl Albumin/Globulin Ratio (0.9-2) Urine Color Urine Appearance (Clear) Urine pH (4.5-7.5) Ur Specific [place] (1.000-1.030) Urine Protein (Negative) Urine Glucose (UA) (Negative) Urine Ketones (Negative) Urine Blood (Negative) Urine Nitrite (Negative) Urine Bilirubin (Negative) Urine Urobilinogen (Negative) Ur Leukocyte Esterase (Negative) Urine WBC (Auto) (0-5) /hpf Urine RBC (Auto) (0-4) /hpf U Hyaline Cast (Auto) (0-5) /lpf U Epithel Cells (Auto) (0-5) /lpf Urine Bacteria (Auto) (Negative) Urine Osmolality (500-800) mOsm/kg Ur Random Creatinine mg/dl Ur Random Sodium mmol/L Ur Random Potassium mmol/L Ur Random Chloride mmol/L Ur Random Uric Acid mg/dl Nasal Screen MRSA (PCR) (Negative) Stl C. diff Tox B Gene (Neg) COVID-19 Eval Order SARS-CoV-2 (PCR) (Negative) Influenza Type A (PCR) (Neg) Influenza Type B (PCR) (Neg) RSV (RT-PCR) (Neg) 02/06/21 02/06/21 02/06/21 Range/Units 07:34 05:36 05:36 WBC (4.8-10.8) K/uL RBC (4.7-6.1) M/uL Hgb (14.0-18.0) g/dL Hct (42-52) % MCV (80-100) fL MCH (25-34) pg MCHC (32-36) g/dL RDW Std Deviation (36.4-46.3) fL RDW Coeff of Linda (11.5-14.5) % Plt Count (130-400) K/uL MPV (7.4-10.4) fL Immature Gran % (Auto) % Neut % (Auto) % Lymph % (Auto) % [place] % (Auto) % Eos % (Auto) % Baso % (Auto) % Neut # (Auto) (1.4-6.5) K/uL Lymph # (Auto) (1.2-3.4) K/uL [place] # (Auto) (0.11-0.59) K/uL Eos # (Auto) (0-0.5) K/uL Baso # (Auto) (0-0.2) K/uL Immature Gran # (Auto) (0.00-0.02) K/uL PT (9.0-12.0) Seconds INR (0.9-1.1) Activ Coag Time Kaolin (94-140) SECONDS POC pH (7.35-7.45) POC pCO2 (35-46) mmHg POC pO2 (80-95) mmHg POC HCO3 (19-24) eder/L POC Total CO2 (24-31) mmol/L POC Base Excess (-9-1.8) eder/L ABG pH 7.34 L (7.35-7.45) ABG pCO2 35 (35-46) mmHg ABG pO2 75 L (80-95) mmHg ABG HCO3 19 (19-24) mmol/L POC ABG O2 Sat (90-95) % ABG O2 Saturation 95.3 H (90-95) % ABG Base Excess -6.2 (-9-1.8) mEq/L [place] Test Art Line (Pos) Barometric Pressure 727.0 mm/Hg Oxygen Given 30% Sodium (136-145) mmol/L Potassium (3.5-5.1) mmol/L Chloride (98-107) mmol/L Carbon Dioxide (21-32) mmol/L Anion Gap (3-11) BUN (7-18) mg/dl Creatinine (0.6-1.4) mg/dl Est Cr Clr Drug Dosing ml/min Est GFR ( Amer) Est GFR (Non-Af Amer) BUN/Creatinine Ratio (10-20) Glucose (70-99) mg/dl POC Glucose (70-99) mg/dl POC Glucose (other) (70-99) mg/dl Estimat Average Glucose Pending Hemoglobin A1c Pending Lactate 2.5 H* (0.4-2.0) mmol/L Calcium (8.5-10.1) mg/dl Total Bilirubin (0.2-1) mg/dl AST (15-37) U/L ALT (12-78) U/L Alkaline Phosphatase (45-117) U/L Troponin I (0-0.045) ng/ml Total Protein (6.4-8.2) gm/dl Albumin (3.4-5.0) gm/dl Globulin (2.5-4.0) gm/dl Albumin/Globulin Ratio (0.9-2) Urine Color Urine Appearance (Clear) Urine pH (4.5-7.5) Ur Specific [place] (1.000-1.030) Urine Protein (Negative) Urine Glucose (UA) (Negative) Urine Ketones (Negative) Urine Blood (Negative) Urine Nitrite (Negative) Urine Bilirubin (Negative) Urine Urobilinogen (Negative) Ur Leukocyte Esterase (Negative) Urine WBC (Auto) (0-5) /hpf Urine RBC (Auto) (0-4) /hpf U Hyaline Cast (Auto) (0-5) /lpf U Epithel Cells (Auto) (0-5) /lpf Urine Bacteria (Auto) (Negative) Urine Osmolality (500-800) mOsm/kg Ur Random Creatinine mg/dl Ur Random Sodium mmol/L Ur Random Potassium mmol/L Ur Random Chloride mmol/L Ur Random Uric Acid mg/dl Nasal Screen MRSA (PCR) (Negative) Stl C. diff Tox B Gene (Neg) COVID-19 Eval Order SARS-CoV-2 (PCR) (Negative) Influenza Type A (PCR) (Neg) Influenza Type B (PCR) (Neg) RSV (RT-PCR) (Neg) 02/06/21 02/06/21 02/06/21 Range/Units 05:36 05:36 05:36 WBC 15.85 H (4.8-10.8) K/uL RBC 4.50 L (4.7-6.1) M/uL Hgb 14.1 (14.0-18.0) g/dL Hct 41.3 L (42-52) % MCV 91.8 (80-100) fL MCH 31.3 (25-34) pg MCHC 34.1 (32-36) g/dL RDW Std Deviation 44.8 (36.4-46.3) fL RDW Coeff of Linda 13.3 (11.5-14.5) % Plt Count 202 (130-400) K/uL MPV 10.3 (7.4-10.4) fL Immature Gran % (Auto) % Neut % (Auto) % Lymph % (Auto) % [place] % (Auto) % Eos % (Auto) % Baso % (Auto) % Neut # (Auto) (1.4-6.5) K/uL Lymph # (Auto) (1.2-3.4) K/uL [place] # (Auto) (0.11-0.59) K/uL Eos # (Auto) (0-0.5) K/uL Baso # (Auto) (0-0.2) K/uL Immature Gran # (Auto) (0.00-0.02) K/uL PT 11.2 (9.0-12.0) Seconds INR 1.1 (0.9-1.1) Activ Coag Time Kaolin (94-140) SECONDS POC pH (7.35-7.45) POC pCO2 (35-46) mmHg POC pO2 (80-95) mmHg POC HCO3 (19-24) eder/L POC Total CO2 (24-31) mmol/L POC Base Excess (-9-1.8) eder/L ABG pH (7.35-7.45) ABG pCO2 (35-46) mmHg ABG pO2 (80-95) mmHg ABG HCO3 (19-24) mmol/L POC ABG O2 Sat (90-95) % ABG O2 Saturation (90-95) % ABG Base Excess (-9-1.8) mEq/L [place] Test (Pos) Barometric Pressure mm/Hg Oxygen Given Sodium 141 (136-145) mmol/L Potassium 3.9 D (3.5-5.1) mmol/L Chloride 114 H (98-107) mmol/L Carbon Dioxide 23 (21-32) mmol/L Anion Gap 4.0 (3-11) BUN 27 H (7-18) mg/dl Creatinine 1.07 (0.6-1.4) mg/dl Est Cr Clr Drug Dosing 84.5 ml/min Est GFR ( Amer) 82.8 Est GFR (Non-Af Amer) 71.5 BUN/Creatinine Ratio 24.8 H (10-20) Glucose 151 H (70-99) mg/dl POC Glucose (70-99) mg/dl POC Glucose (other) (70-99) mg/dl Estimat Average Glucose Hemoglobin A1c Lactate (0.4-2.0) mmol/L Calcium 8.0 L (8.5-10.1) mg/dl Total Bilirubin (0.2-1) mg/dl AST (15-37) U/L ALT (12-78) U/L Alkaline Phosphatase (45-117) U/L Troponin I 18.400 H* (0-0.045) ng/ml Total Protein (6.4-8.2) gm/dl Albumin (3.4-5.0) gm/dl Globulin (2.5-4.0) gm/dl Albumin/Globulin Ratio (0.9-2) Urine Color Urine Appearance (Clear) Urine pH (4.5-7.5) Ur Specific [place] (1.000-1.030) Urine Protein (Negative) Urine Glucose (UA) (Negative) Urine Ketones (Negative) Urine Blood (Negative) Urine Nitrite (Negative) Urine Bilirubin (Negative) Urine Urobilinogen (Negative) Ur Leukocyte Esterase (Negative) Urine WBC (Auto) (0-5) /hpf Urine RBC (Auto) (0-4) /hpf U Hyaline Cast (Auto) (0-5) /lpf U Epithel Cells (Auto) (0-5) /lpf Urine Bacteria (Auto) (Negative) Urine Osmolality (500-800) mOsm/kg Ur Random Creatinine mg/dl Ur Random Sodium mmol/L Ur Random Potassium mmol/L Ur Random Chloride mmol/L Ur Random Uric Acid mg/dl Nasal Screen MRSA (PCR) (Negative) Stl C. diff Tox B Gene (Neg) COVID-19 Eval Order SARS-CoV-2 (PCR) (Negative) Influenza Type A (PCR) (Neg) Influenza Type B (PCR) (Neg) RSV (RT-PCR) (Neg) 02/06/21 02/06/21 02/05/21 Range/Units 04:40 01:58 23:42 WBC (4.8-10.8) K/uL RBC (4.7-6.1) M/uL Hgb (14.0-18.0) g/dL Hct (42-52) % MCV (80-100) fL MCH (25-34) pg MCHC (32-36) g/dL RDW Std Deviation (36.4-46.3) fL RDW Coeff of Linda (11.5-14.5) % Plt Count (130-400) K/uL MPV (7.4-10.4) fL Immature Gran % (Auto) % Neut % (Auto) % Lymph % (Auto) % [place] % (Auto) % Eos % (Auto) % Baso % (Auto) % Neut # (Auto) (1.4-6.5) K/uL Lymph # (Auto) (1.2-3.4) K/uL [place] # (Auto) (0.11-0.59) K/uL Eos # (Auto) (0-0.5) K/uL Baso # (Auto) (0-0.2) K/uL Immature Gran # (Auto) (0.00-0.02) K/uL PT (9.0-12.0) Seconds INR (0.9-1.1) Activ Coag Time Kaolin (94-140) SECONDS POC pH (7.35-7.45) POC pCO2 (35-46) mmHg POC pO2 (80-95) mmHg POC HCO3 (19-24) eder/L POC Total CO2 (24-31) mmol/L POC Base Excess (-9-1.8) eder/L ABG pH 7.41 (7.35-7.45) ABG pCO2 29 L (35-46) mmHg ABG pO2 85 (80-95) mmHg ABG HCO3 18 L (19-24) mmol/L POC ABG O2 Sat (90-95) % ABG O2 Saturation 96.9 H (90-95) % ABG Base Excess -5.2 (-9-1.8) mEq/L [place] Test POS (Pos) Barometric Pressure 726.5 mm/Hg Oxygen Given 30% Sodium (136-145) mmol/L Potassium (3.5-5.1) mmol/L Chloride (98-107) mmol/L Carbon Dioxide (21-32) mmol/L Anion Gap (3-11) BUN (7-18) mg/dl Creatinine (0.6-1.4) mg/dl Est Cr Clr Drug Dosing ml/min Est GFR ( Amer) Est GFR (Non-Af Amer) BUN/Creatinine Ratio (10-20) Glucose (70-99) mg/dl POC Glucose 141 H (70-99) mg/dl POC Glucose (other) (70-99) mg/dl Estimat Average Glucose Hemoglobin A1c Lactate 3.2 H* (0.4-2.0) mmol/L Calcium (8.5-10.1) mg/dl Total Bilirubin (0.2-1) mg/dl AST (15-37) U/L ALT (12-78) U/L Alkaline Phosphatase (45-117) U/L Troponin I (0-0.045) ng/ml Total Protein (6.4-8.2) gm/dl Albumin (3.4-5.0) gm/dl Globulin (2.5-4.0) gm/dl Albumin/Globulin Ratio (0.9-2) Urine Color Urine Appearance (Clear) Urine pH (4.5-7.5) Ur Specific [place] (1.000-1.030) Urine Protein (Negative) Urine Glucose (UA) (Negative) Urine Ketones (Negative) Urine Blood (Negative) Urine Nitrite (Negative) Urine Bilirubin (Negative) Urine Urobilinogen (Negative) Ur Leukocyte Esterase (Negative) Urine WBC (Auto) (0-5) /hpf Urine RBC (Auto) (0-4) /hpf U Hyaline Cast (Auto) (0-5) /lpf U Epithel Cells (Auto) (0-5) /lpf Urine Bacteria (Auto) (Negative) Urine Osmolality (500-800) mOsm/kg Ur Random Creatinine mg/dl Ur Random Sodium mmol/L Ur Random Potassium mmol/L Ur Random Chloride mmol/L Ur Random Uric Acid mg/dl Nasal Screen MRSA (PCR) (Negative) Stl C. diff Tox B Gene (Neg) COVID-19 Eval Order SARS-CoV-2 (PCR) (Negative) Influenza Type A (PCR) (Neg) Influenza Type B (PCR) (Neg) RSV (RT-PCR) (Neg) 02/05/21 02/05/21 02/05/21 Range/Units 23:42 23:42 23:42 WBC 19.80 H (4.8-10.8) K/uL RBC 4.73 (4.7-6.1) M/uL Hgb 14.7 (14.0-18.0) g/dL Hct 43.4 (42-52) % MCV 91.8 (80-100) fL MCH 31.1 (25-34) pg MCHC 33.9 (32-36) g/dL RDW Std Deviation 44.1 (36.4-46.3) fL RDW Coeff of Linda 13.2 (11.5-14.5) % Plt Count 215 (130-400) K/uL MPV 10.2 (7.4-10.4) fL Immature Gran % (Auto) % Neut % (Auto) % Lymph % (Auto) % [place] % (Auto) % Eos % (Auto) % Baso % (Auto) % Neut # (Auto) (1.4-6.5) K/uL Lymph # (Auto) (1.2-3.4) K/uL [place] # (Auto) (0.11-0.59) K/uL Eos # (Auto) (0-0.5) K/uL Baso # (Auto) (0-0.2) K/uL Immature Gran # (Auto) (0.00-0.02) K/uL PT 11.7 (9.0-12.0) Seconds INR 1.2 H (0.9-1.1) Activ Coag Time Kaolin (94-140) SECONDS POC pH (7.35-7.45) POC pCO2 (35-46) mmHg POC pO2 (80-95) mmHg POC HCO3 (19-24) eder/L POC Total CO2 (24-31) mmol/L POC Base Excess (-9-1.8) eder/L ABG pH 7.36 (7.35-7.45) ABG pCO2 32 L (35-46) mmHg ABG pO2 82 (80-95) mmHg ABG HCO3 18 L (19-24) mmol/L POC ABG O2 Sat (90-95) % ABG O2 Saturation 96.2 H (90-95) % ABG Base Excess -6.2 (-9-1.8) mEq/L [place] Test Pos (Pos) Barometric Pressure mm/Hg Oxygen Given 40% Sodium (136-145) mmol/L Potassium (3.5-5.1) mmol/L Chloride (98-107) mmol/L Carbon Dioxide (21-32) mmol/L Anion Gap (3-11) BUN (7-18) mg/dl Creatinine (0.6-1.4) mg/dl Est Cr Clr Drug Dosing ml/min Est GFR ( Amer) Est GFR (Non-Af Amer) BUN/Creatinine Ratio (10-20) Glucose (70-99) mg/dl POC Glucose (70-99) mg/dl POC Glucose (other) (70-99) mg/dl Estimat Average Glucose Hemoglobin A1c Lactate (0.4-2.0) mmol/L Calcium (8.5-10.1) mg/dl Total Bilirubin (0.2-1) mg/dl AST (15-37) U/L ALT (12-78) U/L Alkaline Phosphatase (45-117) U/L Troponin I (0-0.045) ng/ml Total Protein (6.4-8.2) gm/dl Albumin (3.4-5.0) gm/dl Globulin (2.5-4.0) gm/dl Albumin/Globulin Ratio (0.9-2) Urine Color Urine Appearance (Clear) Urine pH (4.5-7.5) Ur Specific [place] (1.000-1.030) Urine Protein (Negative) Urine Glucose (UA) (Negative) Urine Ketones (Negative) Urine Blood (Negative) Urine Nitrite (Negative) Urine Bilirubin (Negative) Urine Urobilinogen (Negative) Ur Leukocyte Esterase (Negative) Urine WBC (Auto) (0-5) /hpf Urine RBC (Auto) (0-4) /hpf U Hyaline Cast (Auto) (0-5) /lpf U Epithel Cells (Auto) (0-5) /lpf Urine Bacteria (Auto) (Negative) Urine Osmolality (500-800) mOsm/kg Ur Random Creatinine mg/dl Ur Random Sodium mmol/L Ur Random Potassium mmol/L Ur Random Chloride mmol/L Ur Random Uric Acid mg/dl Nasal Screen MRSA (PCR) (Negative) Stl C. diff Tox B Gene (Neg) COVID-19 Eval Order SARS-CoV-2 (PCR) (Negative) Influenza Type A (PCR) (Neg) Influenza Type B (PCR) (Neg) RSV (RT-PCR) (Neg) 02/05/21 02/05/21 02/05/21 Range/Units 23:42 21:00 21:00 WBC (4.8-10.8) K/uL RBC (4.7-6.1) M/uL Hgb (14.0-18.0) g/dL Hct (42-52) % MCV (80-100) fL MCH (25-34) pg MCHC (32-36) g/dL RDW Std Deviation (36.4-46.3) fL RDW Coeff of Linda (11.5-14.5) % Plt Count (130-400) K/uL MPV (7.4-10.4) fL Immature Gran % (Auto) % Neut % (Auto) % Lymph % (Auto) % [place] % (Auto) % Eos % (Auto) % Baso % (Auto) % Neut # (Auto) (1.4-6.5) K/uL Lymph # (Auto) (1.2-3.4) K/uL [place] # (Auto) (0.11-0.59) K/uL Eos # (Auto) (0-0.5) K/uL Baso # (Auto) (0-0.2) K/uL Immature Gran # (Auto) (0.00-0.02) K/uL PT (9.0-12.0) Seconds INR (0.9-1.1) Activ Coag Time Kaolin (94-140) SECONDS POC pH (7.35-7.45) POC pCO2 (35-46) mmHg POC pO2 (80-95) mmHg POC HCO3 (19-24) eder/L POC Total CO2 (24-31) mmol/L POC Base Excess (-9-1.8) eder/L ABG pH (7.35-7.45) ABG pCO2 (35-46) mmHg ABG pO2 (80-95) mmHg ABG HCO3 (19-24) mmol/L POC ABG O2 Sat (90-95) % ABG O2 Saturation (90-95) % ABG Base Excess (-9-1.8) mEq/L [place] Test (Pos) Barometric Pressure mm/Hg Oxygen Given Sodium 141 (136-145) mmol/L Potassium 4.6 (3.5-5.1) mmol/L Chloride 113 H (98-107) mmol/L Carbon Dioxide 20 L (21-32) mmol/L Anion Gap 8.0 (3-11) BUN 25 H (7-18) mg/dl Creatinine 1.20 (0.6-1.4) mg/dl Est Cr Clr Drug Dosing 75.4 ml/min Est GFR ( Amer) 72.1 Est GFR (Non-Af Amer) 62.2 BUN/Creatinine Ratio 20.8 H (10-20) Glucose 190 H (70-99) mg/dl POC Glucose (70-99) mg/dl POC Glucose (other) (70-99) mg/dl Estimat Average Glucose Hemoglobin A1c Lactate (0.4-2.0) mmol/L Calcium 8.2 L (8.5-10.1) mg/dl Total Bilirubin (0.2-1) mg/dl AST (15-37) U/L ALT (12-78) U/L Alkaline Phosphatase (45-117) U/L Troponin I 16.200 H* (0-0.045) ng/ml Total Protein (6.4-8.2) gm/dl Albumin (3.4-5.0) gm/dl Globulin (2.5-4.0) gm/dl Albumin/Globulin Ratio (0.9-2) Urine Color Urine Appearance (Clear) Urine pH (4.5-7.5) Ur Specific [place] (1.000-1.030) Urine Protein (Negative) Urine Glucose (UA) (Negative) Urine Ketones (Negative) Urine Blood (Negative) Urine Nitrite (Negative) Urine Bilirubin (Negative) Urine Urobilinogen (Negative) Ur Leukocyte Esterase (Negative) Urine WBC (Auto) (0-5) /hpf Urine RBC (Auto) (0-4) /hpf U Hyaline Cast (Auto) (0-5) /lpf U Epithel Cells (Auto) (0-5) /lpf Urine Bacteria (Auto) (Negative) Urine Osmolality 816 H (500-800) mOsm/kg Ur Random Creatinine 178.0 mg/dl Ur Random Sodium 45 mmol/L Ur Random Potassium 128.3 mmol/L Ur Random Chloride 59 mmol/L Ur Random Uric Acid 80.5 mg/dl Nasal Screen MRSA (PCR) (Negative) Stl C. diff Tox B Gene (Neg) COVID-19 Eval Order SARS-CoV-2 (PCR) (Negative) Influenza Type A (PCR) (Neg) Influenza Type B (PCR) (Neg) RSV (RT-PCR) (Neg) 02/05/21 02/05/21 02/05/21 Range/Units 21:00 20:54 19:13 WBC (4.8-10.8) K/uL RBC (4.7-6.1) M/uL Hgb (14.0-18.0) g/dL Hct (42-52) % MCV (80-100) fL MCH (25-34) pg MCHC (32-36) g/dL RDW Std Deviation (36.4-46.3) fL RDW Coeff of Linda (11.5-14.5) % Plt Count (130-400) K/uL MPV (7.4-10.4) fL Immature Gran % (Auto) % Neut % (Auto) % Lymph % (Auto) % [place] % (Auto) % Eos % (Auto) % Baso % (Auto) % Neut # (Auto) (1.4-6.5) K/uL Lymph # (Auto) (1.2-3.4) K/uL [place] # (Auto) (0.11-0.59) K/uL Eos # (Auto) (0-0.5) K/uL Baso # (Auto) (0-0.2) K/uL Immature Gran # (Auto) (0.00-0.02) K/uL PT (9.0-12.0) Seconds INR (0.9-1.1) Activ Coag Time Kaolin (94-140) SECONDS POC pH (7.35-7.45) POC pCO2 (35-46) mmHg POC pO2 (80-95) mmHg POC HCO3 (19-24) eder/L POC Total CO2 (24-31) mmol/L POC Base Excess (-9-1.8) eder/L ABG pH (7.35-7.45) ABG pCO2 (35-46) mmHg ABG pO2 (80-95) mmHg ABG HCO3 (19-24) mmol/L POC ABG O2 Sat (90-95) % ABG O2 Saturation (90-95) % ABG Base Excess (-9-1.8) mEq/L [place] Test (Pos) Barometric Pressure mm/Hg Oxygen Given Sodium (136-145) mmol/L Potassium (3.5-5.1) mmol/L Chloride (98-107) mmol/L Carbon Dioxide (21-32) mmol/L Anion Gap (3-11) BUN (7-18) mg/dl Creatinine (0.6-1.4) mg/dl Est Cr Clr Drug Dosing ml/min Est GFR ( Amer) Est GFR (Non-Af Amer) BUN/Creatinine Ratio (10-20) Glucose (70-99) mg/dl POC Glucose 172 H (70-99) mg/dl POC Glucose (other) (70-99) mg/dl Estimat Average Glucose Hemoglobin A1c Lactate 3.4 H* (0.4-2.0) mmol/L Calcium (8.5-10.1) mg/dl Total Bilirubin (0.2-1) mg/dl AST (15-37) U/L ALT (12-78) U/L Alkaline Phosphatase (45-117) U/L Troponin I (0-0.045) ng/ml Total Protein (6.4-8.2) gm/dl Albumin (3.4-5.0) gm/dl Globulin (2.5-4.0) gm/dl Albumin/Globulin Ratio (0.9-2) Urine Color Dark Yellow Urine Appearance Turbid A (Clear) Urine pH 5.0 (4.5-7.5) Ur Specific [place] > 1.045 H (1.000-1.030) Urine Protein 2+ H (Negative) Urine Glucose (UA) Negative (Negative) Urine Ketones Negative (Negative) Urine Blood 3+ H (Negative) Urine Nitrite Negative (Negative) Urine Bilirubin 1+ H (Negative) Urine Urobilinogen Negative (Negative) Ur Leukocyte Esterase 1+ H (Negative) Urine WBC (Auto) 10-30 H (0-5) /hpf Urine RBC (Auto) >30 H (0-4) /hpf U Hyaline Cast (Auto) 0 (0-5) /lpf U Epithel Cells (Auto) >30 H (0-5) /lpf Urine Bacteria (Auto) Negative (Negative) Urine Osmolality (500-800) mOsm/kg Ur Random Creatinine mg/dl Ur Random Sodium mmol/L Ur Random Potassium mmol/L Ur Random Chloride mmol/L Ur Random Uric Acid mg/dl Nasal Screen MRSA (PCR) (Negative) Stl C. diff Tox B Gene (Neg) COVID-19 Eval Order SARS-CoV-2 (PCR) (Negative) Influenza Type A (PCR) (Neg) Influenza Type B (PCR) (Neg) RSV (RT-PCR) (Neg) 02/05/21 02/05/21 02/05/21 Range/Units 19:12 19:12 19:12 WBC 22.29 H (4.8-10.8) K/uL RBC 4.86 (4.7-6.1) M/uL Hgb 15.2 (14.0-18.0) g/dL Hct 45.1 (42-52) % MCV 92.8 (80-100) fL MCH 31.3 (25-34) pg MCHC 33.7 (32-36) g/dL RDW Std Deviation 45.1 (36.4-46.3) fL RDW Coeff of Linda 13.2 (11.5-14.5) % Plt Count 246 (130-400) K/uL MPV 10.2 (7.4-10.4) fL Immature Gran % (Auto) 0.5 % Neut % (Auto) 82.8 % Lymph % (Auto) 8.9 % [place] % (Auto) 7.7 % Eos % (Auto) 0.0 % Baso % (Auto) 0.1 % Neut # (Auto) 18.43 H (1.4-6.5) K/uL Lymph # (Auto) 1.99 (1.2-3.4) K/uL [place] # (Auto) 1.72 H (0.11-0.59) K/uL Eos # (Auto) 0.01 (0-0.5) K/uL Baso # (Auto) 0.02 (0-0.2) K/uL Immature Gran # (Auto) 0.12 H (0.00-0.02) K/uL PT (9.0-12.0) Seconds INR (0.9-1.1) Activ Coag Time Kaolin (94-140) SECONDS POC pH (7.35-7.45) POC pCO2 (35-46) mmHg POC pO2 (80-95) mmHg POC HCO3 (19-24) eder/L POC Total CO2 (24-31) mmol/L POC Base Excess (-9-1.8) eder/L ABG pH (7.35-7.45) ABG pCO2 (35-46) mmHg ABG pO2 (80-95) mmHg ABG HCO3 (19-24) mmol/L POC ABG O2 Sat (90-95) % ABG O2 Saturation (90-95) % ABG Base Excess (-9-1.8) mEq/L [place] Test (Pos) Barometric Pressure mm/Hg Oxygen Given Sodium 140 (136-145) mmol/L Potassium 4.1 (3.5-5.1) mmol/L Chloride 111 H (98-107) mmol/L Carbon Dioxide 21 (21-32) mmol/L Anion Gap 8.0 (3-11) BUN 22 H (7-18) mg/dl Creatinine 1.29 D (0.6-1.4) mg/dl Est Cr Clr Drug Dosing 73.4 ml/min Est GFR ( Amer) 66.1 Est GFR (Non-Af Amer) 57.0 BUN/Creatinine Ratio 17.1 (10-20) Glucose 182 H (70-99) mg/dl POC Glucose (70-99) mg/dl POC Glucose (other) (70-99) mg/dl Estimat Average Glucose Hemoglobin A1c Lactate 3.6 H* (0.4-2.0) mmol/L Calcium 8.6 (8.5-10.1) mg/dl Total Bilirubin 0.6 (0.2-1) mg/dl AST 138 H (15-37) U/L ALT 114 H (12-78) U/L Alkaline Phosphatase 86 (45-117) U/L Troponin I (0-0.045) ng/ml Total Protein 7.3 (6.4-8.2) gm/dl Albumin 3.7 (3.4-5.0) gm/dl Globulin 3.6 (2.5-4.0) gm/dl Albumin/Globulin Ratio 1.0 (0.9-2) Urine Color Urine Appearance (Clear) Urine pH (4.5-7.5) Ur Specific [place] (1.000-1.030) Urine Protein (Negative) Urine Glucose (UA) (Negative) Urine Ketones (Negative) Urine Blood (Negative) Urine Nitrite (Negative) Urine Bilirubin (Negative) Urine Urobilinogen (Negative) Ur Leukocyte Esterase (Negative) Urine WBC (Auto) (0-5) /hpf Urine RBC (Auto) (0-4) /hpf U Hyaline Cast (Auto) (0-5) /lpf U Epithel Cells (Auto) (0-5) /lpf Urine Bacteria (Auto) (Negative) Urine Osmolality (500-800) mOsm/kg Ur Random Creatinine mg/dl Ur Random Sodium mmol/L Ur Random Potassium mmol/L Ur Random Chloride mmol/L Ur Random Uric Acid mg/dl Nasal Screen MRSA (PCR) (Negative) Stl C. diff Tox B Gene (Neg) COVID-19 Eval Order SARS-CoV-2 (PCR) (Negative) Influenza Type A (PCR) (Neg) Influenza Type B (PCR) (Neg) RSV (RT-PCR) (Neg) 02/05/21 02/05/21 02/05/21 Range/Units 19:05 19:00 17:50 WBC (4.8-10.8) K/uL RBC (4.7-6.1) M/uL Hgb (14.0-18.0) g/dL Hct (42-52) % MCV (80-100) fL MCH (25-34) pg MCHC (32-36) g/dL RDW Std Deviation (36.4-46.3) fL RDW Coeff of Linda (11.5-14.5) % Plt Count (130-400) K/uL MPV (7.4-10.4) fL Immature Gran % (Auto) % Neut % (Auto) % Lymph % (Auto) % [place] % (Auto) % Eos % (Auto) % Baso % (Auto) % Neut # (Auto) (1.4-6.5) K/uL Lymph # (Auto) (1.2-3.4) K/uL [place] # (Auto) (0.11-0.59) K/uL Eos # (Auto) (0-0.5) K/uL Baso # (Auto) (0-0.2) K/uL Immature Gran # (Auto) (0.00-0.02) K/uL PT (9.0-12.0) Seconds INR (0.9-1.1) Activ Coag Time Kaolin (94-140) SECONDS POC pH 7.25 L (7.35-7.45) POC pCO2 42 (35-46) mmHg POC pO2 154 H (80-95) mmHg POC HCO3 19 (19-24) eder/L POC Total CO2 20 L (24-31) mmol/L POC Base Excess -9.0 (-9-1.8) eder/L ABG pH (7.35-7.45) ABG pCO2 (35-46) mmHg ABG pO2 (80-95) mmHg ABG HCO3 (19-24) mmol/L POC ABG O2 Sat 99.0 H (90-95) % ABG O2 Saturation (90-95) % ABG Base Excess (-9-1.8) mEq/L [place] Test (Pos) Barometric Pressure mm/Hg Oxygen Given Sodium (136-145) mmol/L Potassium (3.5-5.1) mmol/L Chloride (98-107) mmol/L Carbon Dioxide (21-32) mmol/L Anion Gap (3-11) BUN (7-18) mg/dl Creatinine (0.6-1.4) mg/dl Est Cr Clr Drug Dosing ml/min Est GFR ( Amer) Est GFR (Non-Af Amer) BUN/Creatinine Ratio (10-20) Glucose (70-99) mg/dl POC Glucose (70-99) mg/dl POC Glucose (other) (70-99) mg/dl Estimat Average Glucose Hemoglobin A1c Lactate (0.4-2.0) mmol/L Calcium (8.5-10.1) mg/dl Total Bilirubin (0.2-1) mg/dl AST (15-37) U/L ALT (12-78) U/L Alkaline Phosphatase (45-117) U/L Troponin I (0-0.045) ng/ml Total Protein (6.4-8.2) gm/dl Albumin (3.4-5.0) gm/dl Globulin (2.5-4.0) gm/dl Albumin/Globulin Ratio (0.9-2) Urine Color Urine Appearance (Clear) Urine pH (4.5-7.5) Ur Specific [place] (1.000-1.030) Urine Protein (Negative) Urine Glucose (UA) (Negative) Urine Ketones (Negative) Urine Blood (Negative) Urine Nitrite (Negative) Urine Bilirubin (Negative) Urine Urobilinogen (Negative) Ur Leukocyte Esterase (Negative) Urine WBC (Auto) (0-5) /hpf Urine RBC (Auto) (0-4) /hpf U Hyaline Cast (Auto) (0-5) /lpf U Epithel Cells (Auto) (0-5) /lpf Urine Bacteria (Auto) (Negative) Urine Osmolality (500-800) mOsm/kg Ur Random Creatinine mg/dl Ur Random Sodium mmol/L Ur Random Potassium mmol/L Ur Random Chloride mmol/L Ur Random Uric Acid mg/dl Nasal Screen MRSA (PCR) (Negative) Stl C. diff Tox B Gene Negative Cdiff Gene (Neg) COVID-19 Eval Order SARS-CoV-2 (PCR) NEGATIVE (Negative) Influenza Type A (PCR) Negative (Neg) Influenza Type B (PCR) Negative (Neg) RSV (RT-PCR) Negative (Neg) 02/05/21 02/05/21 02/05/21 Range/Units 17:50 17:50 16:45 WBC (4.8-10.8) K/uL RBC (4.7-6.1) M/uL Hgb (14.0-18.0) g/dL Hct (42-52) % MCV (80-100) fL MCH (25-34) pg MCHC (32-36) g/dL RDW Std Deviation (36.4-46.3) fL RDW Coeff of Linda (11.5-14.5) % Plt Count (130-400) K/uL MPV (7.4-10.4) fL Immature Gran % (Auto) % Neut % (Auto) % Lymph % (Auto) % [place] % (Auto) % Eos % (Auto) % Baso % (Auto) % Neut # (Auto) (1.4-6.5) K/uL Lymph # (Auto) (1.2-3.4) K/uL [place] # (Auto) (0.11-0.59) K/uL Eos # (Auto) (0-0.5) K/uL Baso # (Auto) (0-0.2) K/uL Immature Gran # (Auto) (0.00-0.02) K/uL PT (9.0-12.0) Seconds INR (0.9-1.1) Activ Coag Time Kaolin 191 H (94-140) SECONDS POC pH (7.35-7.45) POC pCO2 (35-46) mmHg POC pO2 (80-95) mmHg POC HCO3 (19-24) eder/L POC Total CO2 (24-31) mmol/L POC Base Excess (-9-1.8) eder/L ABG pH (7.35-7.45) ABG pCO2 (35-46) mmHg ABG pO2 (80-95) mmHg ABG HCO3 (19-24) mmol/L POC ABG O2 Sat (90-95) % ABG O2 Saturation (90-95) % ABG Base Excess (-9-1.8) mEq/L [place] Test (Pos) Barometric Pressure mm/Hg Oxygen Given Sodium (136-145) mmol/L Potassium (3.5-5.1) mmol/L Chloride (98-107) mmol/L Carbon Dioxide (21-32) mmol/L Anion Gap (3-11) BUN (7-18) mg/dl Creatinine (0.6-1.4) mg/dl Est Cr Clr Drug Dosing ml/min Est GFR ( Amer) Est GFR (Non-Af Amer) BUN/Creatinine Ratio (10-20) Glucose (70-99) mg/dl POC Glucose (70-99) mg/dl POC Glucose (other) (70-99) mg/dl Estimat Average Glucose Hemoglobin A1c Lactate (0.4-2.0) mmol/L Calcium (8.5-10.1) mg/dl Total Bilirubin (0.2-1) mg/dl AST (15-37) U/L ALT (12-78) U/L Alkaline Phosphatase (45-117) U/L Troponin I (0-0.045) ng/ml Total Protein (6.4-8.2) gm/dl Albumin (3.4-5.0) gm/dl Globulin (2.5-4.0) gm/dl Albumin/Globulin Ratio (0.9-2) Urine Color Urine Appearance (Clear) Urine pH (4.5-7.5) Ur Specific [place] (1.000-1.030) Urine Protein (Negative) Urine Glucose (UA) (Negative) Urine Ketones (Negative) Urine Blood (Negative) Urine Nitrite (Negative) Urine Bilirubin (Negative) Urine Urobilinogen (Negative) Ur Leukocyte Esterase (Negative) Urine WBC (Auto) (0-5) /hpf Urine RBC (Auto) (0-4) /hpf U Hyaline Cast (Auto) (0-5) /lpf U Epithel Cells (Auto) (0-5) /lpf Urine Bacteria (Auto) (Negative) Urine Osmolality (500-800) mOsm/kg Ur Random Creatinine mg/dl Ur Random Sodium mmol/L Ur Random Potassium mmol/L Ur Random Chloride mmol/L Ur Random Uric Acid mg/dl Nasal Screen MRSA (PCR) Negative (Negative) Stl C. diff Tox B Gene (Neg) COVID-19 Eval Order [facility] at [facility] SARS-CoV-2 (PCR) (Negative) Influenza Type A (PCR) (Neg) Influenza Type B (PCR) (Neg) RSV (RT-PCR) (Neg) PG Care Time/CCT Total # of Minutes Spent Total Time Spent with Patient: Total time spent is greater than 50% in coordination of care (as documented) at patient's floor/unit and/or counseling patient: Coding Level of Care Code 27915 Subseq Hosp Care Lvl 2 Diagnoses Sudden R99 AMI (acute kidney injury) N17.9 Ventricular tachycardia I47.2 Ventricular fibrillation I49.01 High anion gap metabolic acidosis E87.2 Ischemic cardiomyopathy I25.5 Sinus bradycardia R00.1 Hypotension I95.9 CAD (coronary artery disease) I25.10 HTN (hypertension) I10 DVT prophylaxis Z29.9
[2021-02-06 17:22] LABS: Hematocrit (blood only) 40.2 % (42-52); Hemoglobin 13.7 g/dL (14.0-18.0); Mean Corpuscular Hemoglobin 31.1 pg (25-34); Mean Corpuscular Hgb Conc 34.1 g/dL (32-36); Mean Corpuscular Volume 91.2 fL (80-100); Mean Platelet Volume 10.1 fL (7.4-10.4); Platelet Count 216 K/uL (130-400); RDW Coefficient of Variation 13.6 % (11.5-14.5); Red Blood Count 4.41 M/uL (4.7-6.1); White Blood Count 18.74 K/uL (4.8-10.8)
[2021-02-06 17:32] LABS: INR 1.1 (0.9-1.1); Prothrombin Time 10.9 Seconds (9.0-12.0)
[2021-02-06 17:46] LABS: BUN Creatinine Ratio 28.4 (10-20); Creatinine Clr Calc Pharmacy 97.4 ml/min; Est GFR (African American) 98.1; Est GFR (Non-African American) 84.6; Potassium 3.6 mmol/L (3.5-5.1)
[2021-02-06] MEDS ORDERED: POTASSIUM CHLORIDE 20 MEQ/15 ML UDC PO STA (20:11)
[2021-02-07 00:12] LABS: BUN Creatinine Ratio 24.7 (10-20); Calcium 7.9 mg/dl (8.5-10.1); Creatinine Clr Calc Pharmacy 92.4 ml/min; Est GFR (African American) 92.1; Est GFR (Non-African American) 79.5; Magnesium 1.8 mg/dl (1.8-2.4); Potassium 3.6 mmol/L (3.5-5.1)
[2021-02-07 00:15] LABS: Phosphorus 1.9 mg/dl (2.5-4.9)
[2021-02-07] MEDS: INSULIN ASPART 100 UNITS/ML 3 ML PEN SC SCH ×6 (00:15→21:29)
[2021-02-07] MEDS: propofoL 1,000 MG/100 ML VIAL IV SCH ×17 (00:15→23:56)
[2021-02-07] MEDS ORDERED: POTASSIUM PHOS 3 MMOL/1 ML INFUSION IV STA (00:27)
[2021-02-07] MEDS ORDERED: CALCIUM GLUCONATE 10% 2,000 MG in SODIUM CHLORIDE 0.9% 50 ML IV ONE (00:30)
[2021-02-07] MEDS: MAGNESIUM SULFATE / D5W 1 GM/100 ML BAG IV SCH ×2 (00:48→02:54)
[2021-02-07] MEDS ORDERED: POTASSIUM PHOSPHATE 21 MMOL in SODIUM CHLORIDE 0.9% 500 ML IV ONE (01:00)
[2021-02-07] MEDS ORDERED: POTASSIUM PHOSPHATE 15 MMOL in SODIUM CHLORIDE 0.9% 250 ML IV ONE (01:00)
[2021-02-07] MEDS: AMIODARONE / D5W 360 MG/200 ML BAG IV SCH (02:09)
[2021-02-07] MEDS: SODIUM CHLORIDE 0.9% 1000ML 1,000 ML IV SCH (04:55)
[2021-02-07 04:59] LABS: iSTAT Arterial Blood Gas HCO3 19 meg/L (19-24); iSTAT Arterial Blood Gas pCO2 35 mmHg (35-46); iSTAT Arterial Blood Gas pH 7.35 (7.35-7.45); iSTAT Arterial Blood Gas pO2 75 mmHg (80-95); iSTAT Carbon Dioxide 20 mmol/L (24-31); iSTAT Hematocrit 38 % (42-52); iSTAT Hemoglobin 12.9 g/dl (14.0-18.0); iSTAT Potassium 3.9 mmol/L (3.3-5.0); iSTAT Sodium 139 mmol/L (135-144)
[2021-02-07 05:07] LABS: Basophils # (auto) 0.01 K/uL (0-0.2); Basophils % (auto) 0.1 %; Eosinophils # (auto) 0.01 K/uL (0-0.5); Eosinophils % (auto) 0.1 %; Hematocrit (blood only) 38.3 % (42-52); Immature Granulocytes # (auto) 0.06 K/uL (0.00-0.02); Immature Granulocytes % (auto) 0.3 %; Lymphocytes # (auto) 1.39 K/uL (1.2-3.4); Lymphocytes % (auto) 7.1 %; Mean Corpuscular Hgb Conc 33.9 g/dL (32-36); Mean Corpuscular Volume 91.4 fL (80-100); Mean Platelet Volume 10.3 fL (7.4-10.4); Monocytes % (auto) 6.1 %; Neutrophils # (auto) 16.97 K/uL (1.4-6.5); Neutrophils % (auto) 86.3 %; Platelet Count 193 K/uL (130-400); RDW Coefficient of Variation 13.7 % (11.5-14.5); RDW Standard Deviation 45.5 fL (36.4-46.3); Red Blood Count 4.19 M/uL (4.7-6.1); White Blood Count 19.64 K/uL (4.8-10.8)
[2021-02-07 05:30] LABS: BUN Creatinine Ratio 23.8 (10-20); Calcium 7.7 mg/dl (8.5-10.1); Creatinine Clr Calc Pharmacy 102.9 ml/min; Est GFR (Non-African American) 88.9; Magnesium 2.5 mg/dl (1.8-2.4)
[2021-02-07 05:33] LABS: Phosphorus 3.4 mg/dl (2.5-4.9)
[2021-02-07 06:09] LABS: Estimated Average Glucose 120 mg/dl; Hemoglobin A1C 5.8 % (4.5-5.6)
[2021-02-07] MEDS: fentaNYL DRIP 1,250 MCG/250 ML BAG IV SCH ×3 (06:16→15:08)
--- NOTE | 2021-02-07 07:11 | CT Scan Report ---
HEAD CT NONCONTRAST CT DOSE: 746.33 mGy.cm HISTORY: anoxic brain injury/other mental status TECHNIQUE: Multiaxial CT images of the head were performed without the use of intravenous contrast. A utomated exposure control was utilized for this study. A dose lowering technique was utilized adheri ng to the principles of ALARA. Comparison: None. Findings: Small retention cyst within the right maxillary sinus. An endotracheal tube and orogastric tube are noted. The calvarium and skull base are intact. The ventricles and sulci are within normal l imits. There is no mass, hematoma, midline shift, or acute infarct. Impression: No acute intracranial abnormality. ACT 112: Negative or not required by law. Electronically signed by: Elias Chan M.D. 02/07/2021 7:10 AM
[2021-02-07] MEDS: levETIRAcetam 500 MG in 0.9 % SODIUM CHLORIDE 100 ML IV SCH ×2 (08:35→21:31)
[2021-02-07] MEDS: ASPIRIN 81 MG CHEW PO SCH (08:36)
[2021-02-07] MEDS: TICAGRELOR 90 MG TAB PO SCH ×2 (08:36→21:32)
[2021-02-07] MEDS: HEPARIN SOD 5,000 UNIT/0.5 ML VIAL SQ SCH ×2 (08:36→21:30)
[2021-02-07] MEDS: ATORVASTATIN 40 MG TAB PO SCH (08:36)
--- NOTE | 2021-02-07 09:04 | Critical Care Progress Note ---
Date of Service February 07, 2021 Assessment & Plan (1) Cardiac arrest: Neurologic: Patient with signs of seizure activity and myoclonic jerking. Likely anoxic brain injury. EEG results pending. MRI has been ordered. CT head was unremarkable. This was relayed to the family. Prognosis very poor. Pulmonary: Minimal vent settings at this time. Mental status precludes the ability to extubate the patient at this time. Head of the bed elevated to 30 degrees if intubated Cardiovascular: EF of 15%. Likely stunning from ventricular fibrillation/ventricular tachycardia. Not on vasoactive medications at this time. We will continue to monitor. Status post LAD stenting. Continue Brilinta and aspirin. Continue atorvastatin 80 mg. Gastrointestinal: We will consider starting tube feeds. On Protonix for GI prophylaxis. Renal: AMI has resolved. Will discontinue IV fluids. Infectious disease: No obvious source of infection at this time. Urine culture with no growth. Leukocytosis likely related to stress reaction. Hematologic: No issues at present. Endocrine: Hyperglycemia protocol per pharmacy. Lines and tubes: ET tube, cooling catheter and Casarez catheter in place. VTE prophylaxis: Heparin 5000 units twice daily CODE STATUS: Full code Family at bedside: Discussed with family over the phone. Prognosis very poor. They understand. Will obtain MRI of the brain. Palliative care consult placed. Disposition: Remain in the ICU today I have personally spent 41 minutes of critical care time in the direct management of this patient. This is a life/limb threatening event. This includes time spent evaluating patient, direct bedside care, chart review, placing orde rs, interpretation of diagnostic studies, discussion with consultants, patient, and family members, as well as other required patient management activities. This time is exclusive of all separately billable procedures, and teaching time and separate from and in addition to any other critical care service time. Thank you for allowing us to participate in the care of this patient. (2) CAD (coronary artery disease): (3) AMI (acute kidney injury): (4) High anion gap metabolic acidosis: (5) Brain anoxic injury: (6) Acute systolic heart failure: Admission and Anticipated Discharge Date Admission Date: February 05, 2021 Subjective Patient seen and examined this morning. He is having myoclonic jerking activity with decreased sedation. EEG was completed today. Interpretation is pending. Off vasoactive medications. Rewarmed at 330 this morning. Review of Systems Review of Systems: Unobtainable due to cognitive status and Unobtainable due to endotracheal tube Physical Exam Physical Exam: Constitutional: No acute distress HEENT: PERRLA Respiratory system: Decreased air entry bilaterally, no wheeze, no rhonchi, positive crackles bilateral lower lobe CVS: S1-S2 positive, no murmurs or gallops, Abdomen: Soft, nontender, nondistended, positive bowel sounds x4, obese Extremities: +2 pulses bilaterally radialis/ dorsalis pedis, no cyanosis, no edema Neuro: Breathing with vent, positive pupillary, positive corneal Psych: Unable to assess G/U: Positive Casarez Skin: no rashes, warm and dry Lymphatic: no cervical or axillary lymphadenopathy Results & Data Results & Data ([facility]) Vital Signs (Past 12 Hours) Vital Signs Temp Temp Temp Pulse Resp BP BP 02/07/21 07:04 98.6 F 69 19 113/59 L 02/07/21 06:00 98.6 F 75 18 109/65 02/07/21 05:30 98.6 F 80 20 02/07/21 05:00 98.4 F 77 18 124/74 02/07/21 04:00 98.6 F 73 18 113/51 L 02/07/21 03:04 75 21 02/07/21 03:00 97.9 F 65 20 114/51 L 02/07/21 02:00 97.5 F L 61 18 109/46 L 02/07/21 01:00 97.2 F L 60 18 122/52 L 02/07/21 00:00 97.2 F L 97.3 F L 63 19 93/61 L 02/06/21 23:05 90 18 02/06/21 23:00 96.8 F L 58 L 18 100/46 L 02/06/21 22:00 95.9 F L 96.3 F L 56 L 18 99/49 L BP Pulse Ox 02/07/21 07:04 97 02/07/21 06:00 95 02/07/21 05:30 94 02/07/21 05:00 94 02/07/21 04:00 131/90 96 02/07/21 03:04 95 02/07/21 03:00 135/53 L 97 02/07/21 02:00 107/58 L 96 02/07/21 01:00 110/54 L 97 02/07/21 00:00 98/61 L 96 02/06/21 23:05 96 02/06/21 23:00 104/58 L 97 02/06/21 22:00 102/58 L 96 I reviewed the vital signs, labs and imaging Coding Level of Care Code Critical Care 1st 30-74 mins Diagnoses Cardiac arrest I46.9 CAD (coronary artery disease) I25.10 AMI (acute kidney injury) N17.9 High anion gap metabolic acidosis E87.2 Brain anoxic injury G93.1 Acute systolic heart failure I50.21 Time Spent (min) 41
--- NOTE | 2021-02-07 10:27 | Palliative Care Consultation ---
Date of Consultation February 07, 2021 Assessment & Plan (1) Palliative care encounter: This unfortunate gentleman is a 65 year old male who presented to the [facility] after suffering a collapse and cardiac arrest while mowing his front lawn. He received CPR for 15 minutes and was intubated in the field. He was a code arctic on arrival and rewarming was completed on 02/07/21 at 0330. A PCI was performed and a stent was placed in the LAD on 02/05. Additional PMH includes: HTN and HLD. Palliative Care was consulted to discuss overall goals of care for his grave condition. He is currently a Full code. This man was discussed during ICU rounds this morning. He continues to be intubated with a #8.0 ETT and on A/C FiO2 30% PEEP 5. Sedation was removed but was reinstated, some muscle twitching was identified, but no purposeful movement noted. He has recently required Levophed for vasoactive support. An EEG was performed and an MRI is planned for this afternoon. In reaching out to his , Jefferson @ [phone], she is realistic with his prognosis and knows that big decisions are to be made in the next day or so. She is going to come to the bedside at 1530 today with her step-son, Johnson. desk officer and nursing aware. [facility] [employer] [facility] is at the bedside for evaluation of patient. Update: I met with Jefferson and Johnson in the patients room. Ultimately, we discussed the patients wishes and Jefferson indicated that he would not want aggressive measures taken ad terminal makeup operator. She has a son from another marriage who lives in [place] that I suggested she call and hold the phone up to the patient for him to talk to him. Both Jefferson and Johnson agree that in the event of cardiac arrest, he would not want CPR or shocks delivered. Will change patient to conditional code since he is already intubated. Code status changed in [facility]. Patient is to have a brain MRI later today. Plan to talk with family at some point tomorrow and goal is possibly withdraw care over next 24-48 hours if no expected overall meaningful recovery. (2) Cardiac arrest: (3) Brain anoxic injury: History of Present Illness Reason for Consultation: Goals of care Requesting Physician: Dr. Quinteros Attending Physician: Sourav Riley MD History of Present Illness This unfortunate gentleman is a 65 year old male who presented to the [facility] after suffering a collapse and cardiac arrest while mowing his front lawn. He received CPR for 15 minutes and was intubated in the field. He was a code arctic on arrival and rewarming was completed on 02/07/21 at 0330. A PCI was performed and a stent was placed in the LAD on 02/05. Additional PMH includes: HTN and HLD. Palliative Care was consulted to discuss overall goals of care for his grave condition. He is currently a Full code. Please see A/P for further details. Thanks for involving palliative care with this individual. Allergies Allergy/AdvReac Type Severity Reaction Status Date / Time clopidogrel Allergy Mild hives Verified 11/19/20 11:37 lisinopril AdvReac Mild cough Verified 11/19/20 11:37 Home Medications Medication Instructions Recorded Confirmed Type aspirin 81 mg tablet,delayed 81 mg PO DAILY #30 tab 10/23/19 11/19/20 Rx release atorvastatin 80 mg tablet 80 mg PO QPM #30 tab 10/23/19 11/19/20 Rx nitroglycerin 0.4 mg sublingual 0.4 mg SL Q5M PRN #25 tab 10/23/19 11/19/20 Rx tablet omeprazole 20 mg tablet,delayed 20 mg PO DAILY #30 tab 10/23/19 11/19/20 Rx release losartan 50 mg tablet 50 mg PO DAILY #90 tab 01/18/20 11/19/20 Rx metoprolol succinate 50 mg 50 mg PO DAILY #90 tab 12/16/20 Rx tablet,extended release 24 hr Patient History Medical History (Updated 02/07/21 @ 10:22 by MARCE Gibbs) Acute anterior wall UT Acute systolic heart failure Brain anoxic injury CAD (coronary artery disease) Dyslipidemia Ischemic cardiomyopathy Palliative care encounter Presence of drug coated stent in LAD coronary artery Surgical History S/P cervical spinal fusion Family History Father Coronary heart disease Myocardial infarction Hx of CABG Social History Smoking Status: Unknown if ever smoked Hx Alcohol Use: No (unknown) Hx Substance Use: No Preferred Language: Senegalese Communication Ability: Unable Mortar Worker Required: No marital status: Current Living Situation: Spouse current occupational status: retired Feels Safe at Home: No Assistive Devices: Oxygen - Continuous Review of Systems Review of Systems: Unobtainable due to endotracheal tube Physical Exam Constitutional: + uncooperative Respiratory: Auscultation: + diminished lung sounds Cardiovascular: Rate/Rhythm: regular rate and regular rhythm Heart Sounds: normal S1 and normal S2 Extremities: normal capillary refill Gastrointestinal (Abdomen): normal bowel sounds, soft, nontender, no hepatosplenomegaly Skin: no rashes, warm and dry Psychiatric: A+Ox3, euthymic affect Results & Data ([facility]) Vital Signs (Past 12 Hours) Vital Signs Temp Temp Temp Pulse Resp BP BP 02/07/21 09:04 36.9 C 76 112/64 02/07/21 08:04 37.1 C 105 H 91/69 L 02/07/21 08:00 37.1 C 104 H 02/07/21 07:05 37.1 C 69 02/07/21 07:04 37.0 C 69 19 113/59 L 02/07/21 06:00 37.0 C 75 18 109/65 02/07/21 05:30 37.0 C 80 20 02/07/21 05:00 36.9 C 77 18 124/74 02/07/21 04:00 37 C 73 18 113/51 L 02/07/21 03:04 75 21 02/07/21 03:00 36.6 C 65 20 114/51 L 02/07/21 02:00 36.4 C L 61 18 109/46 L 02/07/21 01:00 36.2 C L 60 18 122/52 L 02/07/21 00:00 36.2 C L 36.3 C L 63 19 93/61 L 02/06/21 23:05 90 18 02/06/21 23:00 36 C L 58 L 18 100/46 L BP Pulse Ox 02/07/21 09:04 96 02/07/21 08:04 94 02/07/21 08:00 94 02/07/21 07:05 98 02/07/21 07:04 97 02/07/21 06:00 95 02/07/21 05:30 94 02/07/21 05:00 94 02/07/21 04:00 131/90 96 02/07/21 03:04 95 02/07/21 03:00 135/53 L 97 02/07/21 02:00 107/58 L 96 02/07/21 01:00 110/54 L 97 02/07/21 00:00 98/61 L 96 02/06/21 23:05 96 02/06/21 23:00 104/58 L 97 PG Care Time/CCT Total # of Minutes Spent Total Time Spent with Patient: Total time spent is greater than 50% in coordination of care (as documented) at patient's floor/unit and/or counseling patient: 70 minutes with > 50% of that time spent assessing the patient, discussing goals of care with family and collaborating with IDT. Coding Level of Care Code 94117 Inpt Consult Level 3 Diagnoses Palliative care encounter Z51.5 Cardiac arrest I46.9 Brain anoxic injury G93.1 Time Spent (min) 70
[2021-02-07] MEDS: PANTOprazole 40 MG in SYRINGE 0 ML IV SCH (10:39)
[2021-02-07] MEDS: NOREPINEPHRINE/D5W 8 MG/508 ML BAG IV SCH (11:11)
--- NOTE | 2021-02-07 11:35 | Pharmacy Report ---
Pharmacy Glycemic Short Note 2 - Date of Service February 07, 2021 - Glycemic Short BSG Results (Last 24 hours): 02/06/21 02/06/21 02/06/21 11:52 11:58 16:22 Glucose 126 H POC Glucose POC Glucose (other) 123 H 138 H 02/06/21 02/06/21 02/06/21 17:16 19:45 23:40 Glucose 141 H 131 H POC Glucose POC Glucose (other) 147 H 02/06/21 02/07/21 02/07/21 23:49 04:44 04:56 Glucose 141 H POC Glucose 127 H POC Glucose (other) 132 H 02/07/21 02/07/21 08:37 11:06 Glucose POC Glucose 100 H 112 H POC Glucose (other) OUTPATIENT ANTIDIABETIC REGIMEN: * None * HbA1c = 5.6% (12/10/20) ASSESSMENT: 02/07 * BSGs well controlled over last 24 hrs and no SQ or IV insulin has been administered * Patient remains intubated this AM, TTM ended overnight and pt rewarmed, low dose norepi continues, no tube feedings ordered at this time * A1c returned as 5.8, in the "prediabetes" range * No changes to insulin regimen needed at this time 02/06 * 65 yo admitted yesterday s/p cardiac arrest. Pharmacy has been consulted to assist with inpatient glycemic management. * Patient is ventilated and sedated with propofol and fentanyl. He is running Levophed as well as Amiodarone drips. * Showed some hyperglycemia upon admission, likely stress induced. * BSGs: 249-172-190 mg/dL * Fasting BSG was 136 mg/dL this AM. * Patient has received 2 units of Novolog total to this point since admission. * Will continue to follow in the event he is started on tube feeds. PLAN FOR INPATIENT GLYCEMIC CONTROL: * Basal insulin * None * Bolus insulin * NovoLog per scale Q 4 hrs * Goal Range: Low 120 mg/dL - High 160 mg/dL * Correction Factor: 20 mg/dL/unit * Nutritional / Prandial insulin per carb ratio of 1 unit per 7 grams CHO consumed PLAN FOR DISCHARGE: * HbA1c is well controlled and patient is not a diabetic. No medications will be needed at discharge.
--- NOTE | 2021-02-07 11:35 | Hospitalist Progress Note ---
Date of Service February 07, 2021 Assessment & Plan (1) Sudden : While mowing the lawn. Initial rhtyhm was vfib, then Vtach, s/p multiple epinephrine & lidocaine pushes and defibrillation. - LHC with Dr. Alexander on 02/05 showed 70% lesion proximal to his prior stent; however, Dr. Alexander feels this arrest was more likely an arrhythmia stemming from prior NE and not a ACS that caused an arrhythmia. - Presently in ICU undergoing rewarming. - When sedation was held, he had lots of jerking motions and was biting the tube. Unclear if this was seizure vs. agitation. Plan for MRI today and neur ology consult. - On Keppra. (2) CAD (coronary artery disease): Per cardiology note, had a prior LAD NE. PCI on 02/05 as above. - Continue ASA, ticagrelor, statin per ICU team - Holding beta-geraldine and ARB for hypotension (3) AMI (acute kidney injury): Baseline Cr ~1.0. - Cr on admission was 1.7, likely ATN from cardiac arrest. - Follow Cr -> Back to baseline as of 02/07 (4) HTN (hypertension): Presently on pressors per ICU. - HTN meds per ICU (5) DVT prophylaxis: Heparin 5,000 units SQ Q12h - per ICU team. Admission and Anticipated Discharge Date Admission Date: February 05, 2021 Subjective Unconscious and sedated Review of Systems Review of Systems: Unobtainable due to cognitive status, Unobtainable due to e ndotracheal tube and Unobtainable due to reduced consciousness Physical Exam Constitutional: WD/WN, vitals as above + acute distress Eyes: no conjunctival abnormality and + EOM not intact ENMT: Mouth / Teeth: 1. Intubated Neck: trachea midline, no thyromegaly normal visual inspection Respiratory: no respiratory distress Auscultation: no wheezes Cardiovascular: Rate/Rhythm: regular rhythm and + tachycardic Heart Sounds: normal S1 and normal S2 Vessels: no JVD Extremities: no edema Gastrointestinal (Abdomen): Inspection/Auscultation: abdomen normal to inspection; abdomen not distended Musculoskeletal: no cyanosis or clubbing, extremities motor strength 5/5 Skin: no rashes, warm and dry Neurologic: + obtunded; + does not move all extremities and + not awake Psychiatric: Orientation: + not alert Results & Data Results & Data ([facility]) Vital Signs (Past 12 Hours) Vital Signs Temp Temp Temp Pulse Resp BP BP 02/07/21 09:04 36.9 C 76 112/64 02/07/21 08:04 37.1 C 105 H 91/69 L 02/07/21 08:00 37.1 C 104 H 02/07/21 07:05 37.1 C 69 02/07/21 07:04 37.0 C 69 19 113/59 L 02/07/21 06:00 37.0 C 75 18 109/65 02/07/21 05:30 37.0 C 80 20 02/07/21 05:00 36.9 C 77 18 124/74 02/07/21 04:00 37 C 73 18 113/51 L 02/07/21 03:04 75 21 02/07/21 03:00 36.6 C 65 20 114/51 L 02/07/21 02:00 36.4 C L 61 18 109/46 L 02/07/21 01:00 36.2 C L 60 18 122/52 L 02/07/21 00:00 36.2 C L 36.3 C L 63 19 93/61 L BP Pulse Ox 02/07/21 09:04 96 02/07/21 08:04 94 02/07/21 08:00 94 02/07/21 07:05 98 02/07/21 07:04 97 02/07/21 06:00 95 02/07/21 05:30 94 02/07/21 05:00 94 02/07/21 04:00 131/90 96 02/07/21 03:04 95 02/07/21 03:00 135/53 L 97 02/07/21 02:00 107/58 L 96 02/07/21 01:00 110/54 L 97 02/07/21 00:00 98/61 L 96 PG Care Time/CCT Total # of Minutes Spent Total Time Spent with Patient: Total time spent is greater than 50% in institutional research coordinator rdination of care (as documented) at patient's floor/unit and/or counseling patient: Coding Level of Care Code 38668 Subseq Hosp Care Lvl 3 Diagnoses Sudden R99 CAD (coronary artery disease) I25.10 AMI (acute kidney injury) N17.9 HTN (hypertension) I10 DVT prophylaxis Z29.9
--- NOTE | 2021-02-07 14:01 | Electrocardiogram Report ---
Test Reason : Blood Pressure : / mmHG Vent. Rate : 051 BPM Atrial Rate : 051 BPM P-R Int : 184 ms QRS Dur : 112 ms QT Int : 554 ms P-R-T Axes : 055 010 171 degrees QTc Int : 510 ms Sinus bradycardia Inferior infarct (cited on or before 05-FEB-2021) Prolonged QT Abnormal ECG When compared with ECG of 06-FEB-2021 01:57, No significant change was found Confirmed by Matty Cloud ([id number]) on 02/07/2021 2:00:39 PM Referred By: REFERRED SELF Confirmed By:Matty Cloud
--- NOTE | 2021-02-07 14:08 | Electrocardiogram Report ---
Test Reason : Blood Pressure : / mmHG Vent. Rate : 048 BPM Atrial Rate : 048 BPM P-R Int : 186 ms QRS Dur : 110 ms QT Int : 546 ms P-R-T Axes : 049 009 141 degrees QTc Int : 487 ms Sinus bradycardia Inferior infarct (cited on or before 05-FEB-2021) Abnormal ECG When compared with ECG of 06-FEB-2021 06:06, (unconfirmed) No significant change Confirmed by Matty Cloud ([id number]) on 02/07/2021 2:08:50 PM Referred By: REFERRED SELF Confirmed By:Matty Cloud
--- NOTE | 2021-02-07 14:17 | Electrocardiogram Report ---
Test Reason : Blood Pressure : / mmHG Vent. Rate : 051 BPM Atrial Rate : 051 BPM P-R Int : 182 ms QRS Dur : 120 ms QT Int : 550 ms P-R-T Axes : 047 002 138 degrees QTc Int : 506 ms Sinus bradycardia with frequent Premature ventricular complexes Possible Inferior infarct (cited on or before 05-FEB-2021) Abnormal ECG When compared with ECG of 06-FEB-2021 11:02, (unconfirmed) Premature ventricular complexes are now Present Nonspecific T wave abnormality, worse in Inferior leads Confirmed by Matty Cloud ([id number]) on 02/07/2021 2:16:35 PM Referred By: REFERRED SELF Confirmed By:Matty Cloud
--- NOTE | 2021-02-07 14:26 | Electrocardiogram Report ---
Test Reason : Blood Pressure : / mmHG Vent. Rate : 059 BPM Atrial Rate : 059 BPM P-R Int : 178 ms QRS Dur : 116 ms QT Int : 520 ms P-R-T Axes : 053 005 121 degrees QTc Int : 514 ms Sinus bradycardia with occasional Premature ventricular complexes Inferior infarct (cited on or before 05-FEB-2021) Prolonged QT Abnormal ECG When compared with ECG of 06-FEB-2021 15:05, (unconfirmed) No significant change was found Confirmed by Matty Cloud ([id number]) on 02/07/2021 2:26:05 PM Referred By: REFERRED SELF Confirmed By:Matty Cloud
--- NOTE | 2021-02-07 14:36 | Electrocardiogram Report ---
Test Reason : Blood Pressure : / mmHG Vent. Rate : 063 BPM Atrial Rate : 063 BPM P-R Int : 180 ms QRS Dur : 122 ms QT Int : 476 ms P-R-T Axes : 055 003 127 degrees QTc Int : 487 ms Normal sinus rhythm Possible Inferior infarct (cited on or before 05-FEB-2021) Abnormal ECG When compared with ECG of 06-FEB-2021 18:47, (unconfirmed) Premature ventricular complexes are no longer Present Confirmed by Matty Cloud ([id number]) on 02/07/2021 2:36:12 PM Referred By: REFERRED SELF Confirmed By:Matty Cloud
--- NOTE | 2021-02-07 14:42 | Cardiology Progress Note ---
Date of Service February 07, 2021 Assessment & Plan (1) Cardiac arrest: 2. Multivessel CAD - Severe proximal LAD post PCI - 100% dominant circumflex chronic occlusion 3. Severe ICM -- EF 20%, with thinned akinetic inferolateral, lateral, inferior ohara. 4. Sinus bradycardiaresolved 5. Hypotensionresolved Hemodynamically and electrically stable, now off pressors. No significant congestion on exam. Good urine output after diuretics yesterday. Renal function stable -- Continue ASA/Ticagrelor, statin -- pending acute clinic course/neuro status - ICD candidate retirement. Will continue to follow Admission and Anticipated Discharge Date Admission Date: February 05, 2021 Subjective Sedated and unresponsive. Cooling protocol completed. Successfully rewarmed. Per nursing staff unclear if purposeful movements when sedation reduced. Awaiting MRI, neurology input. Epinephrine weaned off. Amiodarone discontinued. Urine output improved yesterday evening after IV Lasix x1 Oxygenating well on minimal vent settings Review of Systems Review of Systems: Unobtainable due to cognitive status and Unobtainable due to endotracheal tube Physical Exam Physical Exam: General: Sedated Lungs: Clear anteriorly Cardiac: Regular rate and rhythm Abdomen: Soft Extremities: Warm, no edema. 2+ radial pulse Skin: No rashes or lesions. Results & Data ([facility]) Vital Signs (Past 12 Hours) Vital Signs Temp Temp Pulse Resp BP BP BP 02/07/21 13:06 99.0 F 83 104/74 02/07/21 12:04 98.8 F 82 111/68 02/07/21 12:00 99.0 F 81 02/07/21 11:21 84 24 02/07/21 11:04 98.8 F 84 111/64 02/07/21 10:04 98.8 F 82 122/69 02/07/21 10:00 98.8 F 79 02/07/21 09:05 98.4 F 75 02/07/21 09:04 98.4 F 76 112/64 02/07/21 08:04 98.8 F 105 H 91/69 L 02/07/21 08:00 98.8 F 104 H 02/07/21 07:05 98.8 F 69 02/07/21 07:04 98.6 F 69 19 113/59 L 02/07/21 06:00 98.6 F 75 18 109/65 02/07/21 05:30 98.6 F 80 20 02/07/21 05:00 98.4 F 77 18 124/74 02/07/21 04:00 98.6 F 73 18 113/51 L 131/90 02/07/21 03:04 75 21 02/07/21 03:00 97.9 F 65 20 114/51 L 135/53 L Pulse Ox 02/07/21 13:06 96 02/07/21 12:04 96 02/07/21 12:00 97 02/07/21 11:21 96 02/07/21 11:04 96 02/07/21 10:04 95 02/07/21 10:00 95 02/07/21 09:05 96 02/07/21 09:04 96 02/07/21 08:04 94 02/07/21 08:00 94 02/07/21 07:05 98 02/07/21 07:04 97 02/07/21 06:00 95 02/07/21 05:30 94 02/07/21 05:00 94 02/07/21 04:00 96 02/07/21 03:04 95 02/07/21 03:00 97 PG Care Time/CCT Total # of Minutes Spent Total Time Spent with Patient: Total time spent is greater than 50% in coordination of care (as documented) at patient's floor/unit and/or counseling patient: Coding Level of Care Code 22195 Subseq Hosp Care Lvl 3 Diagnoses Cardiac arrest I46.9
--- NOTE | 2021-02-07 21:22 | Magnetic Resonance Report ---
MR brain wo con HISTORY: 65 years-old Male s/p cardiac arrest status post proximal ischemic brain injury. COMPARISON: Head CT of same day TECHNIQUE: Multiplanar multisequence MRI of the brain was obtained without the use of IV contrast FINDINGS: Cortically based restricted diffusion is noted within the left frontal lobe near the vertex on image 19 series 4 is also within a generally symmetric distribution within the bilateral occipitali lobes d emonstrating decreased signal on ADC map. No T2/FLAIR signal abnormalities. Motion degraded exam. Nam cifications of the falx cerebri. No acute intracranial hemorrhage, midline shift, abnormal extra-axia l collection, hydrocephalus or intracranial mass. Mild scattered T2/FLAIR signal abnormalities throug hout the brain parenchyma suggests chronic microvascular ischemic disease. Layering secretions within the airway. Partially imaged endotracheal tube. Skull, orbits and soft tis sues are unremarkable. Mild mucosal thickening of the paranasal sinuses. Trace left mastoid effusion. IMPRESSION: 1. Cortically based restricted diffusion within the left frontal lobe and bilateral occipital lobes i s compatible with acute hypoxic ischemic encephalopathy 2. No midline shift or hydrocephalus. 3. Mild chronic microvascular ischemic disease. ACT 112: Negative or not required by law. The above report was generated using voice recognition software. It may contain grammatical, syntax o r spelling errors. Electronically signed by: Magdiel Lewis M.D. 02/07/2021 9:20 PM
[2021-02-07] MEDS ORDERED: ACETAMINOPHEN 325 MG TAB PO PRN (21:27)
[2021-02-07] MEDS ORDERED: ACETAMINOPHEN SUSP 325 MG/10.15 ML UDC PO PRN (22:14)
[2021-02-08] MEDS: NOREPINEPHRINE/D5W 8 MG/508 ML BAG IV SCH (01:05)
[2021-02-08] MEDS: INSULIN ASPART 100 UNITS/ML 3 ML PEN SC SCH ×5 (01:25→18:38)
[2021-02-08] MEDS: fentaNYL DRIP 1,250 MCG/250 ML BAG IV SCH ×4 (02:37→17:10)
[2021-02-08] MEDS: propofoL 1,000 MG/100 ML VIAL IV SCH ×9 (03:10→23:47)
[2021-02-08 05:05] LABS: Basophils # (auto) 0.02 K/uL (0-0.2); Basophils % (auto) 0.1 %; Eosinophils # (auto) 0.02 K/uL (0-0.5); Eosinophils % (auto) 0.1 %; Hemoglobin 12.1 g/dL (14.0-18.0); Immature Granulocytes # (auto) 0.05 K/uL (0.00-0.02); Immature Granulocytes % (auto) 0.3 %; Lymphocytes % (auto) 6.6 %; Mean Corpuscular Hemoglobin 30.9 pg (25-34); Mean Corpuscular Hgb Conc 33.6 g/dL (32-36); Mean Corpuscular Volume 91.8 fL (80-100); Mean Platelet Volume 10.8 fL (7.4-10.4); Monocytes # (auto) 0.98 K/uL (0.11-0.59); Monocytes % (auto) 4.9 %; Neutrophils # (auto) 17.43 K/uL (1.4-6.5); Platelet Count 186 K/uL (130-400); RDW Coefficient of Variation 13.9 % (11.5-14.5); RDW Standard Deviation 46.6 fL (36.4-46.3); Red Blood Count 3.92 M/uL (4.7-6.1)
[2021-02-08 05:19] LABS: iSTAT Arterial Blood Gas HCO3 20 meg/L (19-24); iSTAT Arterial Blood Gas pCO2 36 mmHg (35-46); iSTAT Arterial Blood Gas pH 7.35 (7.35-7.45); iSTAT Arterial Blood Gas pO2 76 mmHg (80-95); iSTAT Carbon Dioxide 21 mmol/L (24-31); iSTAT Hematocrit 34 % (42-52); iSTAT Hemoglobin 11.6 g/dl (14.0-18.0); iSTAT Potassium 3.7 mmol/L (3.3-5.0); iSTAT Sodium 137 mmol/L (135-144)
[2021-02-08 05:26] LABS: Calcium 7.9 mg/dl (8.5-10.1); Creatinine Clr Calc Pharmacy 96.8 ml/min; Est GFR (African American) 96.8; Est GFR (Non-African American) 83.6; Magnesium 2.1 mg/dl (1.8-2.4); Potassium 3.7 mmol/L (3.5-5.1)
[2021-02-08 05:36] LABS: Phosphorus 2.4 mg/dl (2.5-4.9)
[2021-02-08] MEDS ORDERED: POTASSIUM CHLORIDE 20 MEQ/15 ML UDC PO STA (06:26)
[2021-02-08] MEDS: levETIRAcetam 500 MG in 0.9 % SODIUM CHLORIDE 100 ML IV SCH ×2 (07:58→21:55)
[2021-02-08] MEDS: ASPIRIN 81 MG CHEW PO SCH (07:58)
[2021-02-08] MEDS ORDERED: POTASSIUM PHOS 3 MMOL/1 ML INFUSION IV STA (07:59)
[2021-02-08] MEDS: ATORVASTATIN 40 MG TAB PO SCH (07:59)
[2021-02-08] MEDS: HEPARIN SOD 5,000 UNIT/0.5 ML VIAL SQ SCH ×2 (07:59→21:55)
[2021-02-08] MEDS: TICAGRELOR 90 MG TAB PO SCH ×2 (07:59→21:55)
[2021-02-08] MEDS ORDERED: POTASSIUM PHOSPHATE 15 MMOL in SODIUM CHLORIDE 0.9% 250 ML IV ONE (08:15)
--- NOTE | 2021-02-08 09:07 | Critical Care Progress Note ---
Date of Service February 08, 2021 Assessment & Plan (1) Cardiac arrest: Neurologic: MRI brain results consistent with likely anoxic brain injury. EEG results pending. Neurology consultation pending. Palliative care is on board. Prognosis continues to be very poor. Pulmonary: Minimal vent settings at this time. Mental status precludes the ability to extubate the patient at this time. Head of the bed elevated to 30 degrees if intubated Cardiovascular: EF of 15 to 20%. Likely stunning from ventricular fibrillation/ventricular tachycardia. Not on vasoactive medications at this time. We will continue to monitor. Status post LAD stenting. Continue Brilinta and aspirin. Continue a torvastatin 80 mg. Gastrointestinal: We will consider starting tube feeds. On Protonix for GI prophylaxis. Renal: AMI has resolved. Will discontinue IV fluids. Infectious disease: No obvious source of infection at this time. Urine culture with no growth. Leukocytosis likely related to stress reaction. Hematologic: No issues at present. Endocrine: Hyperglycemia protocol per pharmacy. Lines and tubes: ET tube, cooling catheter and Casarez catheter in place. VTE prophylaxis: Heparin 5000 units twice daily CODE STATUS: Full code Family at bedside: Not available at bedside this morning. Disposition: Remain in the ICU today I have personally spent 36 minutes of critical care time in the direct management of this patient. This is a life/limb threatening event. This includes time spent evaluating patient, direct bedside care, chart review, placing orders, interpretation of diagnostic studies, discussion with consultants, patient, and family members, as well as other required patient management activities. This time is exclusive of all separately billable procedures, and teaching time and separate from and in addition to any other critical care service time. Thank you for allowing us to participate in the care of this patient. (2) CAD (coronary artery disease): (3) AMI (acute kidney injury): (4) High anion gap metabolic acidosis: (5) Brain anoxic injury: (6) Acute systolic heart failure: Admission and Anticipated Discharge Date Admission Date: February 05, 2021 Subjective Patient seen and examined. Continues on propofol and fentanyl. We did hold the propofol for 15 to 20 minutes and the patient became very tachypneic. He was also placed on a spontaneous breathing trial. He became hypoxic to an oxygen saturation of 85% on 40% FiO2. He also became tachypneic with rates in the low 40s. He continues to not follow commands. He occasionally has decerebrate posturing. Review of Systems Review of Systems: Unobtainable due to cognitive status and Unobtainable due to endotracheal tube Physical Exam Constitutional: Patient sedated and intubated. Does not appear to be in any significant distress while sedated. When propofol was turned off, he became very tachypneic and started having posturing behavior. Eyes: + abnormal pupil size ENMT: external ear and nose normal, oropharynx normal Intubated Neck: normal visual inspection Respiratory: Coarse breath sounds on the ventilator Cardiovascular: RRR, no murmur, no edema Gastrointestinal (Abdomen): normal bowel sounds, soft, nontender, no hepatosplenomegaly Neurologic: Posturing noted. Not following commands. Psychiatric: A+Ox3, euthymic affect Results & Data Results & Data ([facility]) Vital Signs (Past 12 Hours) Vital Signs Temp Pulse Resp BP Pulse Ox 02/08/21 07:15 102 H 29 H 90 02/08/21 06:04 98.6 F 70 96/55 L 98 02/08/21 05:04 98.6 F 74 98/56 L 96 02/08/21 04:04 98.6 F 73 18 101/56 L 97 02/08/21 03:04 98.6 F 82 17 104/60 96 02/08/21 02:04 98.6 F 76 18 99/56 L 97 02/08/21 01:04 98.6 F 81 18 86/49 L 95 02/08/21 00:59 98.6 F 81 18 87/49 L 95 02/08/21 00:04 98.8 F 100 H 18 90/66 L 88 L 02/07/21 23:42 98.6 F 101 H 18 103/76 90 02/07/21 23:04 99.9 F H 83 18 97/49 L 93 02/07/21 22:42 90 31 H 94 02/07/21 22:04 101.5 F H 93 H 18 97/55 L 98 02/07/21 21:15 101.3 F H 107 H 18 111/59 L 93 02/07/21 21:04 101.5 F H 114 H 18 172/157 H 91 I reviewed the vital signs, labs and imaging Coding Level of Care Code Critical Care 1st 30-74 mins Diagnoses Cardiac arrest I46.9 CAD (coronary artery disease) I25.10 AMI (acute kidney injury) N17.9 High anion gap metabolic acidosis E87.2 Brain anoxic injury G93.1 Acute systolic heart failure I50.21 Time Spent (min) 36
[2021-02-08] MEDS ORDERED: FUROSEMIDE 40 MG/4 ML VIAL IV ONE (10:00)
[2021-02-08] MEDS ORDERED: FUROSEMIDE 20 MG in SYRINGE 0 ML IV ONE (10:00)
[2021-02-08] MEDS: PANTOprazole 40 MG in SYRINGE 0 ML IV SCH (10:11)
--- NOTE | 2021-02-08 14:11 | Hospitalist Progress Note ---
Date of Service February 08, 2021 Assessment & Plan (1) Sudden : While mowing the lawn. Initial rhtyhm was vfib, then Vtach, s/p multiple epinephrine & lidocaine pushes and defibrillation. - LHC with Dr. Alexander on 02/05 showed 70% lesion proximal to his prior stent; however, Dr. Alexander feels this arrest was more likely an arrhythmia stemming from prior HI and not a ACS that caused an arrhythmia. - Presently in ICU undergoing rewarming. - When sedation was held, he had lots of jerking motions and was biting the tube. Unclear if this was seizure vs. agitation. - On Keppra. 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 EEG and neurology consult are still pending. Unclear what recovery is possible at this point. (2) CAD (coronary artery disease): Per cardiology note, had a prior LAD HI. PCI on 02/05 as above. - Continue ASA, ticagrelor, statin per ICU team - Holding beta-geraldine and ARB for hypotension (3) AMI (acute kidney injury): Baseline Cr ~1.0. - Cr on admission was 1.7, likely ATN from cardiac arrest. - Follow Cr -> Back to baseline as of 02/07 (4) HTN (hypertension): Presently off pressors. - HTN meds per ICU (5) DVT prophylaxis: Heparin 5,000 units SQ Q12h - per ICU team. Admission and Anticipated Discharge Date Admission Date: February 05, 2021 Subjective Intubated and sedated Review of Systems Review of Systems: Unobtainable due to endotracheal tube and Unobtainable due to reduced consciousness Physical Exam Constitutional: WD/WN, vitals as above + acute distress Eyes: no conjunctival abnormality and + EOM not intact ENMT: external ear and nose normal, oropharynx normal Neck: trachea midline, no thyromegaly normal visual inspection Respiratory: no respiratory distress Auscultation: no wheezes Cardiovascular: Rate/Rhythm: regular rhythm and + tachycardic Heart Sounds: normal S1 and normal S2 Vessels: no JVD Extremities: no edema Gastrointestinal (Abdomen): Inspection/Auscultation: abdomen normal to inspection; abdomen not distended Musculoskeletal: no cyanosis or clubbing, extremities motor strength 5/5 Skin: no rashes, warm and dry Neurologic: + obtunded; + does not move all extremities and + not awake Psychiatric: Orientation: + not alert Results & Data Results & Data ([facility]) Vital Signs (Past 12 Hours) Vital Signs Temp Pulse Resp BP Pulse Ox 02/08/21 13:00 37.1 C 86 96 02/08/21 12:04 37.2 C 98 H 108/79 91 02/08/21 12:00 37.2 C 96 H 100 02/08/21 11:11 82 23 92 02/08/21 11:04 37.1 C 85 107/68 98 02/08/21 11:00 37.1 C 83 93 02/08/21 10:04 37.0 C 81 97/60 L 94 02/08/21 10:00 37.0 C 80 94 02/08/21 09:04 37.3 C 88 115/59 L 86 L 02/08/21 09:00 37.2 C 91 H 85 L 02/08/21 08:52 16 02/08/21 08:50 97 H 86 L 02/08/21 08:04 37.2 C 89 126/61 92 02/08/21 08:00 37.2 C 88 91 02/08/21 07:15 102 H 29 H 90 02/08/21 07:05 37.1 C 102 H 165/57 H 88 L 02/08/21 07:00 37.1 C 100 H 89 L 02/08/21 06:04 37.0 C 70 96/55 L 98 02/08/21 05:04 37.0 C 74 98/56 L 96 02/08/21 04:04 37.0 C 73 18 101/56 L 97 02/08/21 03:04 37.0 C 82 17 104/60 96 PG Care Time/CCT Total # of Minutes Spent Total Time Spent with Patient: Total time spent is greater than 50% in coordination of care (as documented) at patient's floor/unit and/or counseling patient: Coding Level of Care Code 37614 Subseq Hosp Care Lvl 3 Diagnoses Sudden R99 CAD (coronary artery disease) I25.10 AMI (acute kidney injury) N17.9 HTN (hypertension) I10 DVT prophylaxis Z29.9
--- NOTE | 2021-02-08 14:32 | Neurology Consultation ---
Date of Consultation February 08, 2021 Assessment & Plan (1) Brain anoxic injury: Zeke Christianson is a 65 yo man w/ PMH of HTN, HLD, CAD/MS s/p cardiac stents who initially presented to [facility] after acute collapse, found to be in VFib/VT arrest with ROSC after about 30 minutes. 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 MRI brain also shows subtle DWI changes in bilateral thalami which would suggest a high probability of prolonged minimally conscious state or edgard coma. - continue with supportive care for now, agree with palliative care consult - would increase keppra to 1g bid given interictal pattern noted on EEG and consider repeat EEG if family would like more information for prognostication (with drips off for 20+ minutes) Thank you for this interesting consult. Plan of care discussed with primary team. Please call or text with questions. (2) Cardiac arrest: (3) Dyslipidemia: (4) HTN (hypertension): History of Present Illness Attending Physician: Sourav Riley MD History of Present Illness Zeke Christianson is a 65 yo man w/ PMH of HTN, HLD, CAD/MS s/p cardiac stents who initially presented to [facility] after acute collapse, found to be in VFib/VT arrest with ROSC after about 30 minutes. 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 Per chart review, He was initially found as a V. fib arrest in the field and given 6 rounds of epi, 20 mg lidocaine and multiple defibrillations. He had initial ROSC after 15 minutes of infield CPR with another arrest for a further 15 minutes until sustained ROSC obtained upon arrival to ED. Intubated in the ED for airway protection and taken to track laborer where stent was placed in the LAD. Cause of arrest was thought to be an arrhythmia rather than MS event. He underwent hypothermia protocol with cooling x 24 hours. Initial labs showed WBC 19.8, hemoglobin 14.3, platelets 215,INR 1.2, ABG 7.2 5/42/154/19, Sodium 141, potassium 3.8, gap 8, BUN 25, creatinine 1.2, Glucose 198, lactate 3.2, calcium low at 8.2, Phosphorus elevated to 7, magnesium 2.4, AST elevated 138, ALT elevated 114, alkaline phosphatase 86, troponin 6.2 with peak at 16.5, TSH within normal, UA with pyuria and hematuria but no infection, COVID negative.Imaging independently reviewed. CT head shows no hemorrhage or clear hypodensities. MRI brain shows diffusion restriction in bilateral occipital lobes, left posterior frontal lobe and questionable bilateral thalami, and mild SVID. EEG shows an ictal-interictal pattern of 1-2 Hz frontally predominant GPDs (prior to starting keppra). On examination, he was intubated and when sedation was held, there was no purposeful interaction with his environment. He was noted to become HTNsive and tachycardic, with a coughing like sensation when sedation was held. Allergies Allergy/AdvReac Type Severity Reaction Status Date / Time clopidogrel Allergy Mild hives Verified 11/19/20 11:37 lisinopril AdvReac Mild cough Verified 11/19/20 11:37 Home Medications Medication Instructions Recorded Confirmed Type aspirin 81 mg tablet,delayed 81 mg PO DAILY #30 tab 10/23/19 11/19/20 Rx release atorvastatin 80 mg tablet 80 mg PO QPM #30 tab 10/23/19 11/19/20 Rx nitroglycerin 0.4 mg sublingual 0.4 mg SL Q5M PRN #25 tab 10/23/19 11/19/20 Rx tablet omeprazole 20 mg tablet,delayed 20 mg PO DAILY #30 tab 10/23/19 11/19/20 Rx release losartan 50 mg tablet 50 mg PO DAILY #90 tab 01/18/20 11/19/20 Rx metoprolol succinate 50 mg 50 mg PO DAILY #90 tab 12/16/20 Rx tablet,extended release 24 hr Patient History Medical History Acute anterior wall MS Acute systolic heart failure Brain anoxic injury CAD (coronary artery disease) Dyslipidemia Ischemic cardiomyopathy Palliative care encounter Presence of drug coated stent in LAD coronary artery Surgical History S/P cervical spinal fusion Family History Father Coronary heart disease Myocardial infarction Hx of CABG Social History Smoking Status: Unknown if ever smoked Hx Alcohol Use: No (unknown) Hx Substance Use: No Preferred Language: Kinyarwanda Communication Ability: Unable 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 CV: RRR to sinus tachycardia, no peripheral edema PULM: Intubated, propofol/fentanyl sedation held ~5 minutes prior to examination Neuro Exam: MS: Comatose, does not open eyes to voice or noxious stimulation. Unable to assess speech/cognition 2/2 ETT and mental status. CN: No clear BBT bilaterally. +cough/gag. Negative dolls' eyes. Face symmetric around ETT. MOTOR: Normal bulk, flaccid tone. No spontaneous movements observed. REFLEXES: 1+ at biceps, triceps, brachioradialis, 1+ patella and absent Achilles bilaterally. Toes mute bilaterally. SENSORY: no withdrawal or grimace to noxious stimuli COORDINATION: unable to assess 2/2 mental status GAIT: unable to assess 2/2 mental status Results & Data ([facility]) Vital Signs (Past 12 Hours) Vital Signs Temp Pulse Resp BP Pulse Ox 02/08/21 13:00 37.1 C 86 96 02/08/21 12:04 37.2 C 98 H 108/79 91 02/08/21 12:00 37.2 C 96 H 100 02/08/21 11:11 82 23 92 02/08/21 11:04 37.1 C 85 107/68 98 02/08/21 11:00 37.1 C 83 93 02/08/21 10:04 37.0 C 81 97/60 L 94 02/08/21 10:00 37.0 C 80 94 02/08/21 09:04 37.3 C 88 115/59 L 86 L 02/08/21 09:00 37.2 C 91 H 85 L 02/08/21 08:52 16 02/08/21 08:50 97 H 86 L 02/08/21 08:04 37.2 C 89 126/61 92 02/08/21 08:00 37.2 C 88 91 02/08/21 07:15 102 H 29 H 90 02/08/21 07:05 37.1 C 102 H 165/57 H 88 L 02/08/21 07:00 37.1 C 100 H 89 L 02/08/21 06:04 37.0 C 70 96/55 L 98 02/08/21 05:04 37.0 C 74 98/56 L 96 02/08/21 04:04 37.0 C 73 18 101/56 L 97 02/08/21 03:04 37.0 C 82 17 104/60 96 PG Care Time/CCT Total # of Minutes Spent Total Time Spent with Patient: Total time spent is greater than 50% in coordination of care (as documented) at patient's floor/unit and/or counseling patient: Coding Level of Care Code 63646 Initial Inpt Care Lvl 3 Diagnoses Brain anoxic injury G93.1 Cardiac arrest I46.9 Dyslipidemia E78.5 HTN (hypertension) I10
[2021-02-08] MEDS: PROPOFOL BOLUS FROM BAG IV PRN (14:44)
--- NOTE | 2021-02-08 14:55 | Electroencephalogram ---
EEG Procedure Note Date of Service February 08, 2021 Start / End Times Start Time: 7:48am End Time: 8:08am Referring Physician ICU History cardiac arrest Home Medication List Medication Instructions Recorded Confirmed Type aspirin 81 mg tablet,delayed 81 mg PO DAILY #30 tab 10/23/19 11/19/20 Rx release atorvastatin 80 mg tablet 80 mg PO QPM #30 tab 10/23/19 11/19/20 Rx nitroglycerin 0.4 mg sublingual 0.4 mg SL Q5M PRN #25 tab 10/23/19 11/19/20 Rx tablet omeprazole 20 mg tablet,delayed 20 mg PO DAILY #30 tab 10/23/19 11/19/20 Rx release losartan 50 mg tablet 50 mg PO DAILY #90 tab 01/18/20 11/19/20 Rx metoprolol succinate 50 mg 50 mg PO DAILY #90 tab 12/16/20 Rx tablet,extended release 24 hr Inpatient Medication List Acetaminophen (Acetaminophen Susp 325 Mg/10.15 Ml Udc) 650 mg PO Q4H PRN PRN Reason: Fever Stop: 03/09/21 22:13 Last Admin: 02/07/21 22:35 Dose: 650 mg Documented by: [id number] Aspirin (Aspirin 81 Mg Chew) 81 mg PO [facility] Stop: 03/08/21 09:59 Last Admin: 02/08/21 07:58 Dose: 81 mg Documented by: [id number] Admin: 02/07/21 08:36 Dose: 81 mg Documented by: [id number] Admin: 02/06/21 10:30 Dose: 81 mg Documented by: [id number] Atorvastatin Calcium (Atorvastatin 40 Mg Tab) 80 mg PO [facility] Stop: 03/08/21 08:59 Last Admin: 02/08/21 07:59 Dose: 80 mg Documented by: [id number] Admin: 02/07/21 08:36 Dose: 80 mg Documented by: [id number] Admin: 02/06/21 09:13 Dose: 80 mg Documented by: [id number] Fentanyl Citrate (Fentanyl Bolus From Bag) 50 mcg IV Q60M PRN PRN Reason: Pain or Agitation Stop: 02/19/21 17:54 Last Admin: 02/08/21 14:43 Dose: 50 mcg Documented by: [id number] Admin: 02/06/21 09:14 Dose: 50 mcg Documented by: [id number] Heparin Sodium (Porcine) (Heparin Sod 5,000 Unit/0.5 Ml Vial) 5,000 units SQ Q12 NEIL Stop: 03/08/21 08:59 Last Admin: 02/08/21 07:59 Dose: 5,000 units Documented by: [id number] Admin: 02/07/21 21:30 Dose: 5,000 units Documented by: [id number] Admin: 02/07/21 08:36 Dose: 5,000 units Documented by: [id number] Admin: 02/06/21 20:31 Dose: 5,000 units Documented by: [id number] Admin: 02/06/21 09:13 Dose: 5,000 units Documented by: [id number] Norepinephrine Bitartrate (Levophed/D5w) 8 mg in 508 mls @ 0 mls/hr IV .Q0M NEIL; Protocol Stop: 03/07/21 17:59 Last Titration: 02/08/21 07:06 Dose: 0 mcg/kg/min, 0 mls/hr Documented by: [id number] Cosigned by: [id number] Titration: 02/08/21 06:52 Dose: 0 mcg/kg/min, 0 mls/hr Documented by: [id number] Titration: 02/08/21 01:50 Dose: 0.03 mcg/kg/min, 14.6 mls/hr Documented by: [id number] Admin: 02/08/21 01:05 Dose: 0.02 mcg/kg/min, 9.7 mls/hr Documented by: [id number] Cosigned by: [id number] Titration: 02/08/21 01:05 Dose: 0 mcg/kg/min, 0 mls/hr Documented by: [id number] Cosigned by: [id number] Titration: 02/07/21 19:11 Dose: 0 mcg/kg/min, 0 mls/hr Documented by: [id number] Cosigned by: [id number] Admin: 02/07/21 11:11 Dose: Not Given Documented by: [id number] Titration: 02/07/21 11:11 Dose: 0 mcg/kg/min, 0 mls/hr Documented by: [id number] Titration: 02/07/21 10:39 Dose: 0.01 mcg/kg/min, 4.9 mls/hr Documented by: [id number] Titration: 02/07/21 09:08 Dose: 0.02 mcg/kg/min, 9.7 mls/hr Documented by: [id number] Titration: 02/07/21 07:51 Dose: 0 mcg/kg/min, 0 mls/hr Documented by: [id number] Titration: 02/07/21 07:19 Dose: 0.04 mcg/kg/min, 19.4 mls/hr Documented by: [id number] Cosigned by: [id number] Titration: 02/07/21 00:00 Dose: 0.05 mcg/kg/min, 24.3 mls/hr Documented by: [id number] Titration: 02/06/21 20:00 Dose: 0.04 mcg/kg/min, 19.4 mls/hr Documented by: [id number] Titration: 02/06/21 19:06 Dose: 0.05 mcg/kg/min, 24.3 mls/hr Documented by: [id number] Cosigned by: [id number] Admin: 02/06/21 13:47 Dose: 0.05 mcg/kg/min, 24.3 mls/hr Documented by: [id number] Cosigned by: [id number] Admin: 02/06/21 08:37 Dose: Not Given Documented by: [id number] Propofol (Diprivan) 1,000 mg in 100 mls @ 26.733 mls/hr IV .Q3H45M [facility]; Protocol Stop: 02/08/21 17:59 Last Admin: 02/08/21 14:43 Dose: 35 mcg/kg/min, 26.7 mls/hr Documented by: [id number] Cosigned by: [id number] Titration: 02/08/21 14:09 Dose: 35 mcg/kg/min, 26.7 mls/hr Documented by: [id number] Cosigned by: [id number] Titration: 02/08/21 12:00 Dose: 35 mcg/kg/min, 26.7 mls/hr Documented by: [id number] Admin: 02/08/21 10:08 Dose: 30 mcg/kg/min, 22.9 mls/hr Documented by: [id number] Cosigned by: [id number] Titration: 02/08/21 10:08 Dose: 30 mcg/kg/min, 22.9 mls/hr Documented by: [id number] Cosigned by: [id number] Admin: 02/08/21 09:46 Dose: Not Given Documented by: [id number] Admin: 02/08/21 09:46 Dose: Not Given Documented by: [id number] Admin: 02/08/21 09:45 Dose: Not Given Documented by: [id number] Admin: 02/08/21 09:45 Dose: Not Given Documented by: [id number] Admin: 02/08/21 09:45 Dose: Not Given Documented by: [id number] Titration: 02/08/21 09:03 Dose: 30 mcg/kg/min, 22.9 mls/hr Documented by: [id number] Titration: 02/08/21 08:51 Dose: 20 mcg/kg/min, 15.3 mls/hr Documented by: [id number] Titration: 02/08/21 08:20 Dose: 0 mcg/kg/min, 0 mls/hr Documented by: [id number] Titration: 02/08/21 07:06 Dose: 35 mcg/kg/min, 26.7 mls/hr Documented by: [id number] Cosigned by: [id number] Titration: 02/08/21 07:06 Dose: 35 mcg/kg/min, 26.7 mls/hr Documented by: [id number] Cosigned by: [id number] Admin: 02/08/21 06:30 Dose: 35 mcg/kg/min, 26.7 mls/hr Documented by: [id number] Cosigned by: [id number] Titration: 02/08/21 06:30 Dose: 35 mcg/kg/min, 26.7 mls/hr Documented by: [id number] Cosigned by: [id number] Admin: 02/08/21 03:10 Dose: 35 mcg/kg/min, 26.7 mls/hr Documented by: [id number] Cosigned by: [id number] Titration: 02/08/21 03:10 Dose: 35 mcg/kg/min, 26.7 mls/hr Documented by: [id number] Cosigned by: [id number] Admin: 02/07/21 23:56 Dose: 35 mcg/kg/min, 26.7 mls/hr Documented by: [id number] Cosigned by: [id number] Titration: 02/07/21 23:56 Dose: 35 mcg/kg/min, 26.7 mls/hr Documented by: [id number] Cosigned by: [id number] Admin: 02/07/21 21:17 Dose: 35 mcg/kg/min, 26.7 mls/hr Documented by: [id number] Cosigned by: [id number] Titration: 02/07/21 20:59 Dose: 35 mcg/kg/min, 26.7 mls/hr Documented by: [id number] Cosigned by: [id number] Titration: 02/07/21 19:11 Dose: 35 mcg/kg/min, 26.7 mls/hr Documented by: [id number] Cosigned by: [id number] Admin: 02/07/21 17:14 Dose: 35 mcg/kg/min, 26.7 mls/hr Documented by: [id number] Cosigned by: [id number] Titration: 02/07/21 17:07 Dose: 35 mcg/kg/min, 26.7 mls/hr Documented by: [id number] Cosigned by: [id number] Admin: 02/07/21 15:29 Dose: Not Given Documented by: [id number] Titration: 02/07/21 15:10 Dose: 35 mcg/kg/min, 26.7 mls/hr Documented by: [id number] Titration: 02/07/21 15:00 Dose: 35 mcg/kg/min, 26.7 mls/hr Documented by: [id number] Admin: 02/07/21 13:06 Dose: 30 mcg/kg/min, 22.9 mls/hr Documented by: [id number] Cosigned by: [id number] Titration: 02/07/21 13:03 Dose: 30 mcg/kg/min, 22.9 mls/hr Documented by: [id number] Cosigned by: [id number] Admin: 02/07/21 11:15 Dose: Not Given Documented by: [id number] Admin: 02/07/21 11:10 Dose: Not Given Documented by: [id number] Titration: 02/07/21 10:39 Dose: 30 mcg/kg/min, 22.9 mls/hr Documented by: [id number] Titration: 02/07/21 10:00 Dose: 35 mcg/kg/min, 26.7 mls/hr Documented by: [id number] Admin: 02/07/21 09:05 Dose: 40 mcg/kg/min, 30.6 mls/hr Documented by: [id number] Cosigned by: [id number] Titration: 02/07/21 09:05 Dose: 20 mcg/kg/min, 15.3 mls/hr Documented by: [id number] Cosigned by: [id number] Admin: 02/07/21 08:20 Dose: Not Given Documented by: [id number] Admin: 02/07/21 08:18 Dose: Not Given Documented by: [id number] Admin: 02/07/21 07:54 Dose: Not Given Documented by: [id number] Titration: 02/07/21 07:51 Dose: 20 mcg/kg/min, 15.3 mls/hr Documented by: [id number] Titration: 02/07/21 07:19 Dose: 50 mcg/kg/min, 38.2 mls/hr Documented by: [id number] Cosigned by: [id number] Admin: 02/07/21 06:20 Dose: Not Given Documented by: [id number] Admin: 02/07/21 06:19 Dose: Not Given Documented by: [id number] Admin: 02/07/21 06:16 Dose: 50 mcg/kg/min, 38.2 mls/hr Documented by: [id number] Cosigned by: [id number] Titration: 02/07/21 06:06 Dose: 50 mcg/kg/min, 38.2 mls/hr Documented by: [id number] Cosigned by: [id number] Admin: 02/07/21 03:28 Dose: 50 mcg/kg/min, 38.2 mls/hr Documented by: [id number] Cosigned by: [id number] Titration: 02/07/21 03:28 Dose: 40 mcg/kg/min, 30.6 mls/hr Documented by: [id number] Cosigned by: [id number] Admin: 02/07/21 02:10 Dose: Not Given Documented by: [id number] Admin: 02/07/21 00:15 Dose: 40 mcg/kg/min, 30.6 mls/hr Documented by: [id number] Cosigned by: [id number] Titration: 02/07/21 00:15 Dose: 40 mcg/kg/min, 30.6 mls/hr Documented by: [id number] Cosigned by: [id number] Admin: 02/06/21 21:05 Dose: 40 mcg/kg/min, 30.6 mls/hr Documented by: [id number] Cosigned by: [id number] Titration: 02/06/21 20:40 Dose: 45 mcg/kg/min, 34.4 mls/hr Documented by: [id number] Cosigned by: [id number] Titration: 02/06/21 19:06 Dose: 45 mcg/kg/min, 34.4 mls/hr Documented by: [id number] Cosigned by: [id number] Admin: 02/06/21 18:17 Dose: Not Given Documented by: [id number] Admin: 02/06/21 17:45 Dose: 45 mcg/kg/min, 34.4 mls/hr Documented by: [id number] Cosigned by: [id number] Titration: 02/06/21 17:45 Dose: 40 mcg/kg/min, 30.6 mls/hr Documented by: [id number] Cosigned by: [id number] Admin: 02/06/21 15:01 Dose: 40 mcg/kg/min, 30.6 mls/hr Documented by: [id number] Cosigned by: [id number] Titration: 02/06/21 15:01 Dose: 40 mcg/kg/min, 30.6 mls/hr Documented by: [id number] Cosigned by: [id number] Titration: 02/06/21 15:00 Dose: 40 mcg/kg/min, 30.6 mls/hr Documented by: [id number] Cosigned by: [id number] Admin: 02/06/21 14:45 Dose: Not Given Documented by: [id number] Admin: 02/06/21 14:45 Dose: Not Given Documented by: [id number] Titration: 02/06/21 14:05 Dose: 35 mcg/kg/min, 26.7 mls/hr Documented by: [id number] Titration: 02/06/21 13:13 Dose: 30 mcg/kg/min, 22.9 mls/hr Documented by: [id number] Titration: 02/06/21 10:30 Dose: 25 mcg/kg/min, 19.1 mls/hr Documented by: [id number] Cosigned by: [id number] Admin: 02/06/21 10:30 Dose: 25 mcg/kg/min, 19.1 mls/hr Documented by: [id number] Cosigned by: [id number] Titration: 02/06/21 09:22 Dose: 25 mcg/kg/min, 19.1 mls/hr Documented by: [id number] Titration: 02/06/21 09:02 Dose: 20 mcg/kg/min, 15.3 mls/hr Documented by: [id number] Titration: 02/06/21 07:00 Dose: 30 mcg/kg/min, 22.9 mls/hr Documented by: [id number] Cosigned by: [id number] Admin: 02/06/21 06:18 Dose: 30 mcg/kg/min, 22.9 mls/hr Documented by: [id number] Cosigned by: [id number] Titration: 02/06/21 05:09 Dose: 30 mcg/kg/min, 22.9 mls/hr Documented by: [id number] Cosigned by: [id number] Admin: 02/06/21 00:46 Dose: 30 mcg/kg/min, 22.9 mls/hr Documented by: [id number] Cosigned by: [id number] Titration: 02/06/21 00:46 Dose: 30 mcg/kg/min, 22.9 mls/hr Documented by: [id number] Cosigned by: [id number] Titration: 02/05/21 23:00 Dose: 30 mcg/kg/min, 22.9 mls/hr Documented by: [id number] Admin: 02/05/21 19:30 Dose: 20 mcg/kg/min, 15.3 mls/hr Documented by: [id number] Cosigned by: [id number] Fentanyl Citrate (Fentanyl Drip) 1,250 mcg in 250 mls @ 20 mls/hr IV .[id number] [facility]; Protocol Stop: 02/19/21 17:59 Last Titration: 02/08/21 12:30 Dose: 100 mcg/hr, 20 mls/hr Documented by: [id number] Cosigned by: [id number] Titration: 02/08/21 11:00 Dose: 75 mcg/hr, 15 mls/hr Documented by: [id number] Cosigned by: [id number] Admin: 02/08/21 09:46 Dose: Not Given Documented by: [id number] Titration: 02/08/21 08:51 Dose: 50 mcg/hr, 10 mls/hr Documented by: [id number] Cosigned by: [id number] Titration: 02/08/21 08:20 Dose: 25 mcg/hr, 5 mls/hr Documented by: [id number] Cosigned by: [id number] Admin: 02/08/21 07:44 Dose: Not Given Documented by: [id number] Titration: 02/08/21 07:06 Dose: 100 mcg/hr, 20 mls/hr Documented by: [id number] Cosigned by: [id number] Titration: 02/08/21 07:05 Dose: 100 mcg/hr, 20 mls/hr Documented by: [id number] Cosigned by: [id number] Admin: 02/08/21 02:37 Dose: 100 mcg/hr, 20 mls/hr Documented by: [id number] Cosigned by: [id number] Titration: 02/08/21 02:35 Dose: 100 mcg/hr, 20 mls/hr Documented by: [id number] Cosigned by: [id number] Titration: 02/08/21 01:07 Dose: 100 mcg/hr, 20 mls/hr Documented by: [id number] Cosigned by: [id number] Titration: 02/08/21 00:04 Dose: 125 mcg/hr, 25 mls/hr Documented by: [id number] Cosigned by: [id number] Titration: 02/07/21 19:11 Dose: 100 mcg/hr, 20 mls/hr Documented by: [id number] Cosigned by: [id number] Titration: 02/07/21 18:19 Dose: 100 mcg/hr, 20 mls/hr Documented by: [id number] Cosigned by: [id number] Admin: 02/07/21 15:08 Dose: 125 mcg/hr, 25 mls/hr Documented by: [id number] Cosigned by: [id number] Titration: 02/07/21 15:08 Dose: 125 mcg/hr, 25 mls/hr Documented by: [id number] Cosigned by: [id number] Titration: 02/07/21 11:11 Dose: 125 mcg/hr, 25 mls/hr Documented by: [id number] Cosigned by: [id number] Titration: 02/07/21 09:08 Dose: 100 mcg/hr, 20 mls/hr Documented by: [id number] Cosigned by: [id number] Admin: 02/07/21 08:18 Dose: Not Given Documented by: [id number] Titration: 02/07/21 07:51 Dose: 50 mcg/hr, 10 mls/hr Documented by: [id number] Cosigned by: [id number] Titration: 02/07/21 07:19 Dose: 125 mcg/hr, 25 mls/hr Documented by: [id number] Cosigned by: [id number] Admin: 02/07/21 06:16 Dose: 125 mcg/hr, 25 mls/hr Documented by: [id number] Cosigned by: [id number] Titration: 02/07/21 06:16 Dose: 125 mcg/hr, 25 mls/hr Documented by: [id number] Cosigned by: [id number] Admin: 02/06/21 20:29 Dose: 125 mcg/hr, 25 mls/hr Documented by: [id number] Cosigned by: [id number] Titration: 02/06/21 19:32 Dose: 150 mcg/hr, 30 mls/hr Documented by: [id number] Cosigned by: [id number] Titration: 02/06/21 19:06 Dose: 150 mcg/hr, 30 mls/hr Documented by: [id number] Cosigned by: [id number] Titration: 02/06/21 17:49 Dose: 150 mcg/hr, 30 mls/hr Documented by: [id number] Cosigned by: [id number] Titration: 02/06/21 12:30 Dose: 125 mcg/hr, 25 mls/hr Documented by: [id number] Cosigned by: [id number] Admin: 02/06/21 09:13 Dose: 100 mcg/hr, 20 mls/hr Documented by: [id number] Cosigned by: [id number] Titration: 02/06/21 09:13 Dose: 75 mcg/hr, 15 mls/hr Documented by: [id number] Cosigned by: [id number] Titration: 02/06/21 07:00 Dose: 75 mcg/hr, 15 mls/hr Documented by: [id number] Cosigned by: [id number] Titration: 02/05/21 23:00 Dose: 75 mcg/hr, 15 mls/hr Documented by: [id number] Cosigned by: [id number] Titration: 02/05/21 20:00 Dose: 50 mcg/hr, 10 mls/hr Documented by: [id number] Cosigned by: [id number] Titration: 02/05/21 19:07 Dose: 25 mcg/hr, 5 mls/hr Documented by: [id number] Cosigned by: [id number] Admin: 02/05/21 18:52 Dose: 25 mcg/hr, 5 mls/hr Documented by: [id number] Cosigned by: [id number] Pantoprazole Sodium 40 mg/ (Syringe) 10 mls @ 5 mls/min IV DAILY@1100 NEIL Stop: 03/08/21 10:59 Last Admin: 02/08/21 10:11 Dose: 5 mls/min Documented by: [id number] Admin: 02/07/21 10:39 Dose: 5 mls/min Documented by: [id number] Admin: 02/06/21 12:21 Dose: 5 mls/min Documented by: [id number] Levetiracetam 500 mg/ Sodium (Chloride) 105 mls @ 420 mls/hr IV Q12H NEIL Stop: 03/09/21 08:59 Last Infusion: 02/08/21 08:37 Dose: 0 mls/hr Documented by: [id number] Admin: 02/08/21 07:58 Dose: 420 mls/hr Documented by: [id number] Infusion: 02/07/21 21:46 Dose: 0 mls/hr Documented by: [id number] Admin: 02/07/21 21:31 Dose: 420 mls/hr Documented by: [id number] Infusion: 02/07/21 09:08 Dose: 0 mls/hr Documented by: [id number] Admin: 02/07/21 08:35 Dose: 420 mls/hr Documented by: [id number] Insulin Aspart (Insulin Aspart 100 Units/Ml 3 Ml Pen) 0 units SC Q6 NEIL; Protocol Stop: 03/10/21 11:59 Last Admin: 02/08/21 11:48 Dose: Not Given Documented by: [id number] Cosigned by: [id number] Propofol (Propofol Bolus From Bag) 20 mg IV Q5M PRN PRN Reason: Sedation Stop: 02/08/21 17:54 Last Admin: 02/08/21 14:44 Dose: 20 mg Documented by: [id number] Cosigned by: [id number] Admin: 02/06/21 17:45 Dose: 20 mg Documented by: [id number] Cosigned by: [id number] Admin: 02/06/21 15:00 Dose: 20 mg Documented by: [id number] Cosigned by: [id number] Admin: 02/06/21 13:12 Dose: 20 mg Documented by: [id number] Cosigned by: [id number] Admin: 02/06/21 09:33 Dose: 20 mg Documented by: [id number] Cosigned by: [id number] Ticagrelor (Ticagrelor 90 Mg Tab) 90 mg PO BID NEIL Stop: 03/08/21 03:37 Last Admin: 02/08/21 07:59 Dose: 90 mg Documented by: [id number] Admin: 02/07/21 21:32 Dose: 90 mg Documented by: [id number] Admin: 02/07/21 08:36 Dose: 90 mg Documented by: [id number] Admin: 02/06/21 20:31 Dose: 90 mg Documented by: [id number] Admin: 02/06/21 03:17 Dose: 90 mg Documented by: [id number] Discontinued Medications Amiodarone HCl/Dextrose (Amiodarone 150mg / 100ml D5w) Confirm Administered Dose 150 mg IV .STK-MED ONE Stop: 02/05/21 15:26 Last Admin: 02/05/21 15:31 Dose: Not Given Documented by: [id number] Aspirin ([facility]spirin 81 Mg E[facility]ab) [facility] Stop: 03/08/21 08:59 Last Admin: 02/06/21 10:22 Dose: Not Given Documented by: [id number] Fentanyl Citrate (Fentanyl Citrate 100 Mcg/2 Ml Vial) Confirm Administered Dose 100 mcg .ROUTE .STK-MED ONE Stop: 02/05/21 15:19 Last Admin: 02/05/21 17:39 Dose: 100 mcg Documented by: [id number] Fentanyl Citrate (Fentanyl Citrate 100 Mcg/2 Ml Vial) Confirm Administered Dose 100 mcg .ROUTE .STK-MED ONE Stop: 02/05/21 17:05 Last Increment: 02/05/21 17:41 Dose: 50 mcg Documented by: [id number] Fentanyl Citrate (Fentanyl Citrate 1250mcg/250ml Nss) Confirm Administered Dose 1,250 mcg IV .STK-MED ONE Stop: 02/05/21 18:00 Last Admin: 02/05/21 18:54 Dose: Not Given Documented by: [id number] Furosemide (Furosemide 40 Mg/4 Ml Vial) Confirm Administered Dose 40 mg IV .STK- MED ONE Stop: 02/08/21 10:01 Last Admin: 02/08/21 10:08 Dose: Not Given Documented by: [id number] Heparin Sodium (Porcine) (Heparin (Porcine) 1000 Unit/Ml 10 Ml ([employer] Equipment Sales Use Only)) Confirm Administered Dose 10,000 units .ROUTE .STK-MED ONE Stop: 02/05/21 15:18 Last Admin: 02/05/21 17:39 Dose: 10,000 units Documented by: [id number] Heparin Sodium (Porcine) (Heparin (Porcine) 1000 Unit/Ml 10 Ml (Medical Equipment Sales Use Only)) Confirm Administered Dose 10,000 units .ROUTE .STK-MED ONE Stop: 02/05/21 16:49 Last Admin: 02/05/21 17:40 Dose: 2,000 units Documented by: [id number] Heparin Sodium/Sodium Chloride (Heparin In Nss Infusion 1000 Unit/500 Ml (2 U/Ml) Bag) Confirm Administered Dose 3,000 units IV .STK-MED ONE Stop: 02/05/21 15:19 Last Admin: 02/05/21 17:40 Dose: 3,000 units Documented by: [id number] Amiodarone HCl/Dextrose (Nexterone / D5w) 150 mg in 100 mls @ 600 mls/hr IV NOW STA Stop: 02/05/21 15:35 Last Infusion: 02/05/21 18:54 Dose: 0 mls/hr Documented by: [id number] Cosigned by: [id number] Admin: 02/05/21 15:31 Dose: 600 mls/hr Documented by: [id number] Cosigned by: [id number] Amiodarone HCl/Dextrose (Nexterone / D5w) 360 mg in 200 mls @ 16.667 mls/hr IV .Q12H NEIL Stop: 02/06/21 09:44 Last Infusion: 02/06/21 17:44 Dose: 0 mg/min, 0 mls/hr Documented by: [id number] Cosigned by: [id number] Infusion: 02/06/21 11:20 Dose: 0.5 mg/min, 16.7 mls/hr Documented by: [id number] Cosigned by: [id number] Admin: 02/06/21 09:22 Dose: 1 mg/min, 33.3 mls/hr Documented by: [id number] Cosigned by: [id number] Infusion: 02/06/21 09:17 Dose: 1 mg/min, 33.3 mls/hr Documented by: [id number] Cosigned by: [id number] Infusion: 02/06/21 07:00 Dose: 1 mg/min, 33.3 mls/hr Documented by: [id number] Cosigned by: [id number] Admin: 02/06/21 03:16 Dose: 1 mg/min, 33.3 mls/hr Documented by: [id number] Cosigned by: [id number] Infusion: 02/06/21 03:16 Dose: 1 mg/min, 33.3 mls/hr Documented by: [id number] Cosigned by: [id number] Admin: 02/05/21 21:21 Dose: 1 mg/min, 33.3 mls/hr Documented by: [id number] Cosigned by: [id number] Infusion: 02/05/21 21:21 Dose: 1 mg/min, 33.3 mls/hr Documented by: [id number] Cosigned by: [id number] Infusion: 02/05/21 19:07 Dose: 1 mg/min, 33.3 mls/hr Documented by: [id number] Cosigned by: [id number] Admin: 02/05/21 15:41 Dose: 1 mg/min, 33.3 mls/hr Documented by: [id number] Cosigned by: [id number] Sodium Chloride (Nss 1000ml) 500 mls @ 999 mls/hr IV .Q31M ONE Stop: 02/05/21 16:20 Last Admin: 02/05/21 18:51 Dose: Not Given Documented by: [id number] Sodium Chloride (Nss 1000ml) 1,000 mls @ 100 mls/hr IV .Q10H NEIL Stop: 02/06/21 01:14 Last Infusion: 02/06/21 01:25 Dose: 0 mls/hr Documented by: [id number] Admin: 02/05/21 18:55 Dose: 100 mls/hr Documented by: [id number] Sodium Chloride (Nss 1000ml) 1,000 mls @ 100 mls/hr IV .Q10H NEIL Stop: 03/08/21 00:44 Last Infusion: 02/07/21 07:55 Dose: 0 mls/hr Documented by: [id number] Infusion: 02/07/21 07:51 Dose: 100 mls/hr Documented by: [id number] Admin: 02/07/21 04:55 Dose: 100 mls/hr Documented by: [id number] Infusion: 02/07/21 04:55 Dose: 100 mls/hr Documented by: [id number] Admin: 02/06/21 19:38 Dose: 100 mls/hr Documented by: [id number] Infusion: 02/06/21 19:23 Dose: 100 mls/hr Documented by: [id number] Admin: 02/06/21 09:23 Dose: 100 mls/hr Documented by: [id number] Infusion: 02/06/21 09:23 Dose: 100 mls/hr Documented by: [id number] Admin: 02/06/21 01:26 Dose: 100 mls/hr Documented by: [id number] Potassium Chloride (K Blaze / Wtr) 20 meq in 100 mls @ 50 mls/hr IV ONE ONE Stop: 02/06/21 08:21 Last Infusion: 02/06/21 08:38 Dose: 0 mls/hr Documented by: [id number] Admin: 02/06/21 06:33 Dose: 50 mls/hr Documented by: [id number] Amiodarone HCl/Dextrose (Nexterone / D5w) 360 mg in 200 mls @ 16.667 mls/hr IV .Q12H NEIL Stop: 02/07/21 02:00 Last Admin: 02/07/21 02:09 Dose: Not Given Documented by: [id number] Infusion: 02/07/21 02:00 Dose: 0 mg/min, 0 mls/hr Documented by: [id number] Cosigned by: [id number] Infusion: 02/06/21 19:06 Dose: 0.5 mg/min, 16.7 mls/hr Documented by: [id number] Cosigned by: [id number] Admin: 02/06/21 17:45 Dose: 0.5 mg/min, 16.7 mls/hr Documented by: [id number] Cosigned by: [id number] Furosemide 40 mg/ Syringe 4 mls @ 4 mls/min IV 1600 ONE Stop: 02/06/21 16:01 Last Admin: 02/06/21 16:10 Dose: 4 mls/min Documented by: [id number] Levetiracetam 2,000 mg/ Sodium (Chloride) 270 mls @ 999 mls/hr IV NOW STA Stop: 02/07/21 00:00 Last Infusion: 02/07/21 00:30 Dose: 0 mls/hr Documented by: [id number] Admin: 02/06/21 23:58 Dose: 999 mls/hr Documented by: [id number] Calcium Gluconate 2,000 mg/ (Sodium Chloride) 70 mls @ 240 mls/hr IV NOW ONE Stop: 02/07/21 00:47 Last Infusion: 02/07/21 01:10 Dose: 0 mls/hr Documented by: [id number] Admin: 02/07/21 00:47 Dose: 240 mls/hr Documented by: [id number] Magnesium Sulfate/Dextrose (Magnesium Sulfate / D5w) 1 gm in 100 mls @ 50 mls/hr IV Q2H NEIL Stop: 02/07/21 04:26 Last Infusion: 02/07/21 04:55 Dose: 0 mls/hr Documented by: [id number] Admin: 02/07/21 02:54 Dose: 50 mls/hr Documented by: [id number] Infusion: 02/07/21 02:48 Dose: 50 mls/hr Documented by: [id number] Admin: 02/07/21 00:48 Dose: 50 mls/hr Documented by: [id number] Potassium Phosphate 21 mmol/ (Sodium Chloride) 507 mls @ 140 mls/hr IV ONE ONE Stop: 02/07/21 04:37 Last Infusion: 02/07/21 05:30 Dose: 0 mls/hr Documented by: [id number] Admin: 02/07/21 01:38 Dose: 140 mls/hr Documented by: [id number] Potassium Phosphate 15 mmol/ (Sodium Chloride) 255 mls @ 88 mls/hr IV ONE ONE Stop: 02/08/21 11:08 Last Infusion: 02/08/21 11:26 Dose: 0 mls/hr Documented by: [id number] Admin: 02/08/21 08:24 Dose: 88 mls/hr Documented by: [id number] Furosemide 20 mg/ Syringe 2 mls @ 4 mls/min IV ONE ONE Stop: 02/08/21 10:01 Last Admin: 02/08/21 10:11 Dose: 4 mls/min Documented by: [id number] Insulin Aspart (Insulin Aspart 100 Units/Ml 3 Ml Pen) 0 units SC Q4 NEIL; Protocol Stop: 03/08/21 00:29 Last Admin: 02/08/21 07:59 Dose: Not Given Documented by: [id number] Cosigned by: [id number] Admin: 02/08/21 04:54 Dose: Not Given Documented by: [id number] Cosigned by: [id number] Admin: 02/08/21 01:25 Dose: Not Given Documented by: [id number] Cosigned by: [id number] Admin: 02/07/21 21:29 Dose: Not Given Documented by: [id number] Admin: 02/07/21 15:10 Dose: Not Given Documented by: [id number] Cosigned by: [id number] Admin: 02/07/21 11:10 Dose: Not Given Documented by: [id number] Admin: 02/07/21 08:38 Dose: Not Given Documented by: [id number] Admin: 02/07/21 04:30 Dose: Not Given Documented by: [id number] Admin: 02/07/21 00:15 Dose: Not Given Documented by: [id number] Cosigned by: [id number] Admin: 02/06/21 20:30 Dose: Not Given Documented by: [id number] Cosigned by: [id number] Admin: 02/06/21 16:28 Dose: Not Given Documented by: [id number] Cosigned by: [id number] Admin: 02/06/21 12:21 Dose: Not Given Documented by: [id number] Cosigned by: [id number] Admin: 02/06/21 09:13 Dose: Not Given Documented by: [id number] Admin: 02/06/21 04:42 Dose: Not Given Documented by: [id number] Cosigned by: [id number] Admin: 02/06/21 00:48 Dose: 2 units Documented by: [id number] Cosigned by: [id number] Meperidine HCl (Meperidine Hcl 25 Mg/Ml Carp/Vial) 25 mg IV Q2H PRN PRN Reason: Shivering Stop: 02/19/21 21:09 Last Admin: 02/05/21 21:28 Dose: 25 mg Documented by: [id number] Midazolam HCl (Midazolam Hcl 1 Mg/Ml 2ml Vial) Confirm Administered Dose 2 mg .ROUTE .STK-MED ONE Stop: 02/05/21 15:18 Last Admin: 02/05/21 17:39 Dose: 2 mg Documented by: [id number] Midazolam HCl (Midazolam Hcl 1 Mg/Ml 2ml Vial) Confirm Administered Dose 2 mg .ROUTE .STK-MED ONE Stop: 02/05/21 16:30 Last Admin: 02/05/21 17:40 Dose: 2 mg Documented by: [id number] Midazolam HCl (Midazolam Hcl 1 Mg/Ml 2ml Vial) Confirm Administered Dose 2 mg .ROUTE .STK-MED ONE Stop: 02/05/21 17:05 Last Admin: 02/05/21 17:41 Dose: 2 mg Documented by: [id number] Miscellaneous (Rapid Sequence Induction Bag) Confirm Administered Dose 1 ea .ROUTE .STK-MED ONE Stop: 02/05/21 15:18 Last Admin: 02/05/21 18:51 Dose: Not Given Documented by: [id number] Miscellaneous Information (Nursing To Pharmacy Communication) 1 ea N/A TODAY [facility] Stop: 03/08/21 09:44 Last Admin: 02/06/21 10:22 Dose: Not Given Documented by: [id number] Nicardipine HCl (Nicardipine Hcl Inj 2.5 Mg/Ml 10 Ml Amp) Confirm Administered Dose 25 mg .ROUTE .STK-MED ONE Stop: 02/05/21 15:18 Last Admin: 02/05/21 17:39 Dose: 25 mg Documented by: [id number] Nitroglycerin/Dextrose (Nitroglycerin/D5w 100mcg/Ml 20ml Syr) Confirm Administered Dose 2,000 mcg .ROUTE .K-MED ONE Stop: 02/05/21 15:19 Last Admin: 02/05/21 17:40 Dose: 2,000 mcg Documented by: [id number] Potassium Chloride (Potassium Chloride 20 Meq/15 Ml Udc) 40 meq PO NOW STA Stop: 02/06/21 20:12 Last Admin: 02/06/21 20:29 Dose: 40 meq Documented by: [id number] Potassium Chloride (Potassium Chloride 20 Meq/15 Ml Udc) 40 meq PO NOW STA Stop: 02/08/21 06:27 Last Admin: 02/08/21 06:32 Dose: 40 meq Documented by: [id number] Propofol (Propofol Iv Emulsion 10 Mg/Ml 100 Ml Vial) Confirm Administered Dose 1,000 mg IV .[facility] ONE Stop: 02/05/21 18:00 Last Admin: 02/05/21 18:54 Dose: Not Given Documented by: [id number] Rocuronium [place] (Rocuronium [place] 10 Mg/Ml 5 Ml Vial) 50 mg IV NOW STA Stop: 02/05/21 15:54 Last Admin: 02/05/21 15:21 Dose: 50 mg Documented by: [id number] Cosigned by: [id number] Ticagrelor (Ticagrelor 90 Mg Tab) Confirm Administered Dose 180 mg PO .STK-MED ONE Stop: 02/05/21 16:57 Last Admin: 02/05/21 17:40 Dose: 180 mg Documented by: [id number] Description This is a 21 electrode EEG with a single channel dedicated to limited EKG. The electrodes were placed in accordance with the International 10-20 system. History: cardiac arrest Rx: negin (started after EEG), propofol gtt (held since 6:20am), fentanyl (25cc/hr) Start/Stop: 7:48am/8:08am Attending reading: Edilia Stout EEG Description: EEG background: Background was nearly continuous, symmetric 2-4 Hz delta slowing with overriding muscle artifact occasionally. No well formed posterior dominant rhythm was observed. The EEG is continuous. There is minimal variability and no reactivity present. Activation and reactivity: Photic stimulation performed without any abnormalities noted. No photic driving observed. Hyperventilation was not performed. Sleep: No sleep architecture was noted. Epileptiform discharges: No epileptiform discharges were observed. Rhythmic and periodic patterns: Continuous 1-2 Hz frontal predominant generalized periodic discharges were noted throughout the recording c/w an ictal-interictal pattern. Seizures: None Impression: This was an abnormal EEG given lack of reactivity, minimal variability and ictal-interictal frontal predominant GPDs. There was also severe generalized background slowing as can be seen in a generalized cerebral insult such as HIE. The overall interpretation for this EEG indicates a poor prognosis from a cardiac arrest standpoint. Recommend repeat EEG with sedation held (including fentanyl), keppra on board and all drips held to prevent artifact on the EEG. [facility] EEG Procedure Codes Indication for Procedure (1) Brain anoxic injury: (2) Cardiac arrest: Neurology Neurology: 61331 EEG include record awake & drowsy
--- NOTE | 2021-02-08 16:18 | Palliative Care Progress Note ---
Date of Service February 08, 2021 Assessment & Plan (1) Palliative care encounter: Mr. Christianson remains critically ill in the ICU. An MRI was performed and anoxic brain injury encephalopathy was noted. Sedation was decreased today, but he did become asynchronous with the ventilator and became relatively hypertensive. He did have to go back on sedation as he was becoming tachycardic as well. There was question on whether he was showing signs of posturing. He was evaluated by neurology as well and overall meaningful recovery is not expected. I met with Jefferson and Johnson in the patients room. They had wishes for their intake clinician to visit and provide prayer which did occur earlier today. We discussed compassionate extubation and what that entails. We discussed shifting gears to a more comfort care focus. Ultimately, the family would like some time with the patient and will update staff when they feel comfortable moving forward with the above. We did discuss comfort focused medications and what to expect with regards to breathing pattern changes, etc. Set expectation that once family does extubate patient, he likely has hours to a day or two of life. Family did express wanting to discuss [facility] who will reach out to them directly, from our understanding no large organs were viable for donation, but will have GOL discuss more in depth. [facility] did evaluate the patient yesterday and apparently was deemed to have possible tissue viability. Family has decided that they would like to withdraw care tomorrow, SundayFebruary 09. (2) Cardiac arrest: (3) Brain anoxic injury: Admission and Anticipated Discharge Date Admission Date: February 05, 2021 Subjective Patient remains intubated and sedated. No purposeful movement or interaction. Review of Systems Review of Systems: Unobtainable due to endotracheal tube Physical Exam Constitutional: + uncooperative Respiratory: Auscultation: + diminished lung sounds Cardiovascular: Rate/Rhythm: regular rate and regular rhythm Heart Sounds: normal S1 and normal S2 Extremities: normal capillary refill Gastrointestinal (Abdomen): normal bowel sounds, soft, nontender, no hepatosplenomegaly Skin: no rashes, warm and dry Psychiatric: A+Ox3, euthymic affect Results & Data ([facility]) Vital Signs (Past 12 Hours) Vital Signs Temp Pulse Resp BP Pulse Ox 02/08/21 15:10 84 23 96 02/08/21 14:09 37.0 C 86 102/58 L 96 02/08/21 14:04 37.0 C 84 97/57 L 97 02/08/21 14:00 37.0 C 83 97 02/08/21 13:04 37.1 C 89 99/68 L 96 02/08/21 13:00 37.1 C 86 96 02/08/21 12:04 37.2 C 98 H 108/79 91 02/08/21 12:00 37.2 C 96 H 100 02/08/21 11:11 82 23 92 02/08/21 11:04 37.1 C 85 107/68 98 02/08/21 11:00 37.1 C 83 93 02/08/21 10:04 37.0 C 81 97/60 L 94 02/08/21 10:00 37.0 C 80 94 02/08/21 09:04 37.3 C 88 115/59 L 86 L 02/08/21 09:00 37.2 C 91 H 85 L 02/08/21 08:52 16 02/08/21 08:50 97 H 86 L 02/08/21 08:04 37.2 C 89 126/61 92 02/08/21 08:00 37.2 C 88 91 02/08/21 07:15 102 H 29 H 90 02/08/21 07:05 37.1 C 102 H 165/57 H 88 L 02/08/21 07:00 37.1 C 100 H 89 L 02/08/21 06:04 37.0 C 70 96/55 L 98 02/08/21 05:04 37.0 C 74 98/56 L 96 PG Care Time/CCT Total # of Minutes Spent Total Time Spent with Patient: Total time spent is greater than 50% in co ordination of care (as documented) at patient's floor/unit and/or counseling patient: Total time spent 45 minutes with > 50% of that time spent assessing the patient, Coding Level of Care Code 21397 Subseq Hosp Care Lvl 3 Diagnoses Palliative care encounter Z51.5 Cardiac arrest I46.9 Brain anoxic injury G93.1 Time Spent (min) 45
[2021-02-08] MEDS: DOXYCYCLINE HYCLATE 100 MG in DEXTROSE 5% 100 ML IV SCH (16:34)
[2021-02-08] MEDS: cefTRIAXone SODIUM 2,000 MG in DEXTROSE 5% 50 ML IV SCH (16:34)
[2021-02-08] MEDS ORDERED: STAT IV Infusion **Titration per Protocol STA (18:56)
[2021-02-09] MEDS: INSULIN ASPART 100 UNITS/ML 3 ML PEN SC SCH ×4 (00:31→15:38)
[2021-02-09] MEDS: propofoL 1,000 MG/100 ML VIAL IV SCH ×5 (03:25→21:33)
[2021-02-09] MEDS: DOXYCYCLINE HYCLATE 100 MG in DEXTROSE 5% 100 ML IV SCH ×2 (03:27→15:34)
[2021-02-09 04:28] LABS: iSTAT Arterial Blood Gas HCO3 22 meg/L (19-24); iSTAT Arterial Blood Gas pCO2 36 mmHg (35-46); iSTAT Arterial Blood Gas pO2 82 mmHg (80-95); iSTAT Carbon Dioxide 23 mmol/L (24-31); iSTAT Hematocrit 31 % (42-52); iSTAT Hemoglobin 10.5 g/dl (14.0-18.0); iSTAT Potassium 3.9 mmol/L (3.3-5.0); iSTAT Sodium 135 mmol/L (135-144)
[2021-02-09 05:00] LABS: Basophils # (auto) 0.01 K/uL (0-0.2); Basophils % (auto) 0.1 %; Eosinophils # (auto) 0.06 K/uL (0-0.5); Eosinophils % (auto) 0.4 %; Hematocrit (blood only) 35.2 % (42-52); Hemoglobin 11.9 g/dL (14.0-18.0); Immature Granulocytes # (auto) 0.04 K/uL (0.00-0.02); Immature Granulocytes % (auto) 0.2 %; Lymphocytes # (auto) 1.71 K/uL (1.2-3.4); Lymphocytes % (auto) 10.1 %; Mean Corpuscular Hemoglobin 30.7 pg (25-34); Mean Corpuscular Hgb Conc 33.8 g/dL (32-36); Mean Platelet Volume 10.5 fL (7.4-10.4); Monocytes # (auto) 0.79 K/uL (0.11-0.59); Monocytes % (auto) 4.7 %; Neutrophils # (auto) 14.25 K/uL (1.4-6.5); Neutrophils % (auto) 84.5 %; Platelet Count 176 K/uL (130-400); RDW Coefficient of Variation 13.8 % (11.5-14.5); RDW Standard Deviation 45.7 fL (36.4-46.3); Red Blood Count 3.87 M/uL (4.7-6.1); White Blood Count 16.86 K/uL (4.8-10.8)
[2021-02-09 05:25] LABS: BUN Creatinine Ratio 27.8 (10-20); Calcium 8.2 mg/dl (8.5-10.1); Creatinine Clr Calc Pharmacy 96.1 ml/min; Est GFR (African American) 94.4; Est GFR (Non-African American) 81.5; Magnesium 2.1 mg/dl (1.8-2.4)
[2021-02-09 05:27] LABS: Phosphorus 2.4 mg/dl (2.5-4.9)
[2021-02-09] MEDS: fentaNYL DRIP 1,250 MCG/250 ML BAG IV SCH ×3 (06:29→23:06)
[2021-02-09] MEDS: ASPIRIN 81 MG CHEW PO SCH (07:31)
[2021-02-09] MEDS: ATORVASTATIN 40 MG TAB PO SCH (07:31)
[2021-02-09] MEDS: HEPARIN SOD 5,000 UNIT/0.5 ML VIAL SQ SCH ×2 (07:32→20:54)
[2021-02-09] MEDS: TICAGRELOR 90 MG TAB PO SCH ×2 (07:32→20:54)
[2021-02-09] MEDS: levETIRAcetam 500 MG in 0.9 % SODIUM CHLORIDE 100 ML IV SCH ×2 (07:32→20:52)
--- NOTE | 2021-02-09 10:33 | Critical Care Progress Note ---
Date of Service February 09, 2021 Assessment & Plan (1) Cardiac arrest: Neurologic: MRI brain results consistent with likely anoxic brain injury. EEG results suggestive of severe generalized background slowing. Neurology input appreciated. Prognosis is very poor. Palliative care is on board. Pulmonary: Minimal vent settings at this time. Mental status precludes the ability to extubate the patient at this time. Head of the bed elevated to 30 degrees if intubated Cardiovascular: EF of 15 to 20%. Likely stunning from ventricular fibrillation/ventricular tachycardia. Not on vasoactive medications at this time. We will continue to monitor. Status post LAD stenting. Continue Brilinta and aspirin. Continue atorvastatin 80 mg. Gastrointestinal: We will consider starting tube feeds. On Protonix for GI prophylaxis. Renal: AMI has resolved. Will discontinue IV fluids. Infectious disease: No obvious source of infection at this time. Urine culture with no growth. Leukocytosis likely related to stress reaction. Sputum cultures pending. No indication for antibiotics at this time. Fevers noted earlier were likely central in origin. Hematologic: No issues at present. Endocrine: Hyperglycemia protocol per pharmacy. Lines and tubes: ET tube, cooling catheter and Casarez catheter in place. VTE prophylaxis: Heparin 5000 units twice daily CODE STATUS: Full code Family at bedside: Not available at bedside this morning. Disposition: Remain in the ICU today. Likely palliative extubation and comfort measures later today. I have personally spent 30 minutes of critical care time in the direct management of this patient. This is a life/limb threatening event. This includes time spent evaluating patient, direct bedside care, chart review, placing orders, interpretation of diagnostic studies, discussion with consultants, patient, and family members, as well as other required patient management activities. This time is exclusive of all separately billable procedures, and teaching time and separate from and in addition to any other critical care service time. Thank you for allowing us to participate in the care of this patient. (2) CAD (coronary artery disease): (3) AMI (acute kidney injury): (4) High anion gap metabolic acidosis: (5) Brain anoxic injury: (6) Acute systolic heart failure: Admission and Anticipated Discharge Date Admission Date: February 05, 2021 Subjective No significant change from prior. Continues to be unresponsive to commands. Does poorly when weaning sedation. He becomes very asynchronous with the ventilator and does not follow commands. Review of Systems Review of Systems: Unobtainable due to cognitive status and Unobtainable due to endotracheal tube Physical Exam Constitutional: Patient sedated and intubated. Does not appear to be in any significant distress while sedated. When propofol was turned off, he became very tachypneic and started having posturing behavior. Eyes: + abnormal pupil size ENMT: external ear and nose normal, oropharynx normal Intubated Neck: normal visual inspection Respiratory: Coarse breath sounds on the ventilator Cardiovascular: RRR, no murmur, no edema Gastrointestinal (Abdomen): normal bowel sounds, soft, nontender, no hepatosplenomegaly Neurologic: Posturing noted. Not following commands. Psychiatric: A+Ox3, euthymic affect Results & Data Results & Data ([facility]) Vital Signs (Past 12 Hours) Vital Signs Temp Pulse Resp BP Pulse Ox 02/09/21 08:00 98.8 F 80 97 02/09/21 07:16 99.0 F 80 88/60 L 96 02/09/21 07:09 79 19 96 02/09/21 07:04 98.8 F 79 96 02/09/21 06:05 98.8 F 83 96/50 L 95 02/09/21 06:00 98.8 F 83 95 02/09/21 05:04 99.3 F 102 H 106/66 87 L 02/09/21 05:00 99.1 F 103 H 88 L 02/09/21 04:04 99.0 F 87 94/69 L 94 02/09/21 04:00 98.8 F 90 95 02/09/21 03:48 75 20 98 02/09/21 03:04 98.8 F 75 89/52 L 97 02/09/21 03:00 98.8 F 75 97 02/09/21 02:04 98.8 F 74 87/58 L 97 02/09/21 02:00 98.8 F 74 97 02/09/21 01:41 98.8 F 74 96 02/09/21 01:40 98.8 F 74 90/52 L 96 02/09/21 01:04 98.8 F 76 84/57 L 96 02/09/21 01:00 98.8 F 76 96 02/09/21 00:20 84 02/09/21 00:12 72 17 97 02/09/21 00:04 98.8 F 75 92/54 L 98 02/09/21 00:00 98.8 F 72 97 02/08/21 23:04 98.8 F 74 90/56 L 98 02/08/21 23:00 98.6 F 75 98 Vital signs labs imaging reviewed Coding Level of Care Code Critical Care 1st 30-74 mins Diagnoses Cardiac arrest I46.9 CAD (coronary artery disease) I25.10 AMI (acute kidney injury) N17.9 High anion gap metabolic acidosis E87.2 Brain anoxic injury G93.1 Acute systolic heart failure I50.21 Time Spent (min) 30
[2021-02-09] MEDS: PANTOprazole 40 MG in SYRINGE 0 ML IV SCH (11:16)
--- NOTE | 2021-02-09 12:06 | Hospitalist Progress Note ---
Date of Service February 09, 2021 Assessment & Plan (1) Sudden : While mowing the lawn. Initial rhtyhm was vfib, then Vtach, s/p multiple epinephrine & lidocaine pushes and defibrillation. - LHC with Dr. Alexander on 02/05 showed 70% lesion proximal to his prior stent; however, Dr. Alexander feels this arrest was more likely an arrhythmia stemming from prior SC and not a ACS that caused an arrhythmia. - Presently in ICU on ventilator support . Unresponsive. Anoxic brain injury as result of ventricular fibrillation. - On Keppra. 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 EEG report noted. Neurology consultation appreciated. (2) CAD (coronary artery disease): Per cardiology note, had a prior LAD SC. PCI on 02/05 as above. - Continue ASA, ticagrelor, statin per ICU team - Holding beta-geraldine and ARB for hypotension (3) AMI (acute kidney injury): Baseline Cr ~1.0. - Cr on admission was 1.7, likely ATN from cardiac arrest. - Follow Cr -> Back to baseline as of 02/07 (4) HTN (hypertension): Presently off pressors. - HTN meds per ICU (5) DVT prophylaxis: Heparin 5,000 units SQ Q12h - per ICU team. Disposition: Probable compassionate extubation later today, February 09. Palliative care is involved. Admission and Anticipated Discharge Date Admission Date: February 05, 2021 Subjective The patient remains on ventilator support and is unresponsive. He has anoxic brain injury from his cardiac arrest. EEG report noted. Palliative care entries and critical care entries noted. Probable compassionate extubation later today. Review of Systems Review of Systems: Unobtainable due to cognitive status Physical Exam Physical Exam: General-unresponsive on ventilator support. HEENT-head atraumatic and normocephalic. Endotracheal tube in place Neck-no lymphadenopathy or thyromegaly, trachea midline Chest-scattered bilateral rhonchi. No wheezing Cardiac-regular rate and rhythm, normal S1 and S2 Abdomen-normal bowel sounds,no hepatosplenomegaly Extremities-no cyanosis, clubbing, or edema Neuro-unresponsive on ventilator support. Results & Data Results & Data ([facility]) Vital Signs (Past 12 Hours) Vital Signs Temp Pulse Resp BP Pulse Ox 02/09/21 11:05 37.1 C 76 19 87/47 L 97 02/09/21 10:04 37.4 C 88 88/61 L 93 02/09/21 09:04 37.1 C 73 85/48 L 98 02/09/21 08:00 37.1 C 80 97 02/09/21 07:16 37.2 C 80 88/60 L 96 02/09/21 07:09 79 19 96 02/09/21 07:04 37.1 C 79 96 02/09/21 06:05 37.1 C 83 96/50 L 95 02/09/21 06:00 37.1 C 83 95 02/09/21 05:04 37.4 C 102 H 106/66 87 L 02/09/21 05:00 37.3 C 103 H 88 L 02/09/21 04:04 37.2 C 87 94/69 L 94 02/09/21 04:00 37.1 C 90 95 02/09/21 03:48 75 20 98 02/09/21 03:04 37.1 C 75 89/52 L 97 02/09/21 03:00 37.1 C 75 97 02/09/21 02:04 37.1 C 74 87/58 L 97 02/09/21 02:00 37.1 C 74 97 02/09/21 01:41 37.1 C 74 96 02/09/21 01:40 37.1 C 74 90/52 L 96 02/09/21 01:04 37.1 C 76 84/57 L 96 02/09/21 01:00 37.1 C 76 96 02/09/21 00:20 84 02/09/21 00:12 72 17 97 02/09/21 00:04 37.1 C 75 92/54 L 98 Laboratory Results 02/09/21 04:22 02/09/21 04:22 PG Care Time/CCT Total # of Minutes Spent Total Time Spent with Patient: Total time spent is greater than 50% in coordination of care (as documented) at patient's floor/unit and/or counseling patient: Coding Level of Care Code 42057 Subseq Hosp Care Lvl 3 Diagnoses Sudden R99 CAD (coronary artery disease) I25.10 AMI (acute kidney injury) N17.9 HTN (hypertension) I10 DVT prophylaxis Z29.9
[2021-02-09] MEDS: cefTRIAXone SODIUM 2,000 MG in DEXTROSE 5% 50 ML IV SCH (15:33)
[2021-02-09 19:09] LABS: Albumin Level 2.4 gm/dl (3.4-5.0); BUN Creatinine Ratio 28.8 (10-20); Bilirubin Direct 0.3 mg/dl (0-0.2); Calcium 8.8 mg/dl (8.5-10.1); Creatinine Clr Calc Pharmacy 108.5 ml/min; Est GFR (African American) 104.5; Est GFR (Non-African American) 90.2; Potassium 3.8 mmol/L (3.5-5.1)
[2021-02-09 19:12] LABS: Albumin Globulin Ratio 0.6 (0.9-2); Bilirubin,Total 0.8 mg/dl (0.2-1); Globulin 3.9 gm/dl (2.5-4.0); Total Protein 6.3 gm/dl (6.4-8.2)
[2021-02-09] MEDS ORDERED: FUROSEMIDE 40 MG/4 ML VIAL IV ONE (20:46)
[2021-02-09] MEDS ORDERED: FUROSEMIDE 40 MG in SYRINGE 0 ML IV ONE (21:00)
[2021-02-09] MEDS: PROPOFOL BOLUS FROM BAG IV PRN (21:15)
[2021-02-10] MEDS: INSULIN ASPART 100 UNITS/ML 3 ML PEN SC SCH ×3 (00:25→11:48)
[2021-02-10 01:02] LABS: Appearance Urine Turbid (Clear); Bilirubin Urine Negative (Negative); Blood Urine 2+ (Negative); Color Urine Brown; Glucose Urine UA Negative (Negative); Ketones Urine Negative (Negative); Leukocyte Esterase Urine Negative (Negative); Nitrite Urine Negative (Negative); Protein Urine Negative (Negative); Specific Gravity Urine 1.015 (1.000-1.030); Urobilinogen Urine Negative (Negative)
[2021-02-10 01:05] LABS: Amorphous Sediment Urine Present (None Prsent); Bacteria Urine Negative (Negative); WBC Urine 0-5 /hpf (0-5)
[2021-02-10] MEDS: propofoL 1,000 MG/100 ML VIAL IV SCH ×9 (01:10→13:17)
[2021-02-10] MEDS: DOXYCYCLINE HYCLATE 100 MG in DEXTROSE 5% 100 ML IV SCH (03:54)
[2021-02-10] MEDS: fentaNYL DRIP 1,250 MCG/250 ML BAG IV SCH ×3 (05:02→18:01)
[2021-02-10 05:42] LABS: Basophils # (auto) 0.01 K/uL (0-0.2); Basophils % (auto) 0.1 %; Eosinophils # (auto) 0.08 K/uL (0-0.5); Eosinophils % (auto) 0.6 %; Hematocrit (blood only) 31.1 % (42-52); Hemoglobin 10.7 g/dL (14.0-18.0); Immature Granulocytes # (auto) 0.04 K/uL (0.00-0.02); Immature Granulocytes % (auto) 0.3 %; Lymphocytes # (auto) 1.15 K/uL (1.2-3.4); Lymphocytes % (auto) 9.1 %; Mean Corpuscular Hemoglobin 30.7 pg (25-34); Mean Corpuscular Hgb Conc 34.4 g/dL (32-36); Mean Corpuscular Volume 89.4 fL (80-100); Mean Platelet Volume 9.8 fL (7.4-10.4); Monocytes # (auto) 0.75 K/uL (0.11-0.59); Monocytes % (auto) 5.9 %; Neutrophils # (auto) 10.66 K/uL (1.4-6.5); Platelet Count 147 K/uL (130-400); RDW Coefficient of Variation 13.6 % (11.5-14.5); RDW Standard Deviation 44.3 fL (36.4-46.3); Red Blood Count 3.48 M/uL (4.7-6.1); White Blood Count 12.69 K/uL (4.8-10.8)
[2021-02-10 06:14] LABS: iSTAT Arterial Blood Gas HCO3 21 meg/L (19-24); iSTAT Arterial Blood Gas pCO2 37 mmHg (35-46); iSTAT Arterial Blood Gas pH 7.37 (7.35-7.45); iSTAT Arterial Blood Gas pO2 94 mmHg (80-95); iSTAT Carbon Dioxide 22 mmol/L (24-31); iSTAT Hematocrit 29 % (42-52); iSTAT Hemoglobin 9.9 g/dl (14.0-18.0); iSTAT Potassium 3.5 mmol/L (3.3-5.0); iSTAT Sodium 136 mmol/L (135-144)
[2021-02-10 06:18] LABS: BUN Creatinine Ratio 26.3 (10-20); Calcium 7.9 mg/dl (8.5-10.1); Creatinine Clr Calc Pharmacy 101.4 ml/min; Est GFR (African American) 100.7; Est GFR (Non-African American) 86.9; Magnesium 2.1 mg/dl (1.8-2.4); Potassium 3.5 mmol/L (3.5-5.1)
[2021-02-10] MEDS ORDERED: POTASSIUM CHLORIDE 20 MEQ/15 ML UDC PO STA (06:42)
--- NOTE | 2021-02-10 07:37 | XRay Report ---
XR chest 1V portable HISTORY: Respiratory failure. COMPARISON: Chest 02/06/2021. FINDINGS: Endotracheal tube terminates 1.5 cm from the tessa. Nasogastric tube terminates below the diaphragm. The tip is not included on this study. No pneumothorax. No pleural effusions. Progressive diffuse bilateral airspace opacities. The heart remains mildly enlarged. IMPRESSION: 1. The endotracheal tube terminates 1.5 cm from the tessa. This should be pulled back by approximate ly 1 to 2 cm. 2. Progressive bilateral airspace opacities consistent with a pneumonia. 3. This report was called/faxed to the referring physician following dictation. ACT 112: Negative or not required by law. Electronically signed by: Elias Chan M.D. 02/10/2021 7:35 AM
[2021-02-10] MEDS: ASPIRIN 81 MG CHEW PO SCH (08:33)
[2021-02-10] MEDS: ATORVASTATIN 40 MG TAB PO SCH (08:33)
[2021-02-10] MEDS: TICAGRELOR 90 MG TAB PO SCH (08:33)
[2021-02-10] MEDS: levETIRAcetam 500 MG in 0.9 % SODIUM CHLORIDE 100 ML IV SCH (08:35)
[2021-02-10] MEDS: HEPARIN SOD 5,000 UNIT/0.5 ML VIAL SQ SCH (08:35)
[2021-02-10] MEDS: PROPOFOL BOLUS FROM BAG IV PRN (08:57)
--- NOTE | 2021-02-10 09:59 | Palliative Care Progress Note ---
Date of Service February 10, 2021 Assessment & Plan (1) Palliative care encounter: Mr. Christianson remains critically ill in the ICU. An MRI was performed on Sunday and anoxic brain injury encephalopathy was noted. Sedation has been decreased but he did become asynchronous with the ventilator and became relatively hypertensive. Family had conversation with [facility] regarding donation and per my understanding the patient will have tissue donation post mortum. I reached out to the patients , Jefferson at [phone] who will be coming in this afternoon with her step-son Johnson for compassionate extubation. Update:Family came into the bedside and decided to pursue compassionate extubation which occurred at 1250. Patient transitioned to comfort measures only. Patient with increased airway secretions and responded well to oral suctioning. SpO2 low 70's.Currently on Fentanyl gtt. Bolus administered. Ordered Robinul 0.2 mg Q3 PRN for secretions. Life expectancy hours. Support offered to family. (2) Cardiac arrest: (3) Brain anoxic injury: Admission and Anticipated Discharge Date Admission Date: February 05, 2021 Subjective The patient remains on ventilator support and is unresponsive. He has anoxic brain injury from his cardiac arrest. EEG report and MRI done with encephalopathy noted. Palliative care entries and critical care entries noted. Compassionate extubation planned later this afternoon. Review of Systems Review of Systems: Unobtainable due to endotracheal tube Physical Exam Constitutional: + uncooperative Respiratory: Auscultation: + diminished lung sounds Cardiovascular: Rate/Rhythm: regular rate and regular rhythm Heart Sounds: normal S1 and normal S2 Extremities: normal capillary refill Gastrointestinal (Abdomen): normal bowel sounds, soft, nontender, no hepatosplenomegaly Skin: no rashes, warm and dry Psychiatric: Orientation: + not oriented x 3 Results & Data ([facility]) Vital Signs (Past 12 Hours) Vital Signs Temp Pulse Resp BP Pulse Ox 02/10/21 08:05 37.1 C 74 87/52 L 99 02/10/21 07:19 74 23 98 02/10/21 07:05 37.2 C 77 94/53 L 98 02/10/21 06:05 37.1 C 75 88/52 L 98 02/10/21 06:00 37.1 C 76 99 02/10/21 05:05 37.1 C 75 86/51 L 98 02/10/21 05:00 37.1 C 75 99 02/10/21 04:16 76 19 99 02/10/21 04:05 37.1 C 78 86/53 L 97 02/10/21 04:00 37.1 C 78 96 02/10/21 03:05 37.1 C 79 82/50 L 96 02/10/21 03:00 37.1 C 79 96 02/10/21 02:05 37.2 C 85 89/57 L 96 02/10/21 02:00 37.2 C 83 95 02/10/21 01:05 37.1 C 85 96/57 L 95 02/10/21 01:00 37.1 C 78 94 02/10/21 00:15 81 16 97 02/10/21 00:05 37.2 C 84 83/48 L 98 02/10/21 00:00 37.2 C 83 98 02/09/21 23:05 37.0 C 90 89/57 L 94 02/09/21 23:00 37.2 C 92 H 89 L 02/09/21 22:39 94 H 13 90 02/09/21 22:05 37.1 C 88 95/57 L 97 02/09/21 22:00 37.1 C 91 H 96 PG Care Time/CCT Total # of Minutes Spent Total Time Spent with Patient: Total time spent is greater than 50% in coordination of care (as documented) at patient's floor/unit and/or counseling patient: 35 minutes with > 50% of that time spent assessing the patient, discussing goals of care, collaborating with IDT Coding Level of Care Code 16667 Subseq Hosp Care Lvl 3 Diagnoses Palliative care encounter Z51.5 Cardiac arrest I46.9 Brain anoxic injury G93.1 Time Spent (min) 35
[2021-02-10] MEDS: PANTOprazole 40 MG in SYRINGE 0 ML IV SCH (11:44)
[2021-02-10] MEDS ORDERED: FUROSEMIDE 40 MG in SYRINGE 0 ML IV ONE (12:00)
--- NOTE | 2021-02-10 12:23 | Hospitalist Progress Note ---
Date of Service February 10, 2021 Assessment & Plan (1) Sudden : While mowing the lawn. Initial rhtyhm was vfib, then Vtach, s/p multiple epinephrine & lidocaine pushes and defibrillation. - LHC with Dr. Alexander on 02/05 showed 70% lesion proximal to his prior stent; however, Dr. Alexander feels this arrest was more likely an arrhythmia stemming from prior NC and not a ACS that caused an arrhythmia. - Presently in ICU on ventilator support . Unresponsive. Anoxic brain injury as result of ventricular fibrillation. - On Keppra. 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 EEG report noted. Neurology consultation appreciated. (2) CAD (coronary artery disease): Per cardiology note, had a prior LAD NC. PCI on 02/05 as above. - Continue ASA, ticagrelor, statin per ICU team - Holding beta-geraldine and ARB for hypotension (3) AMI (acute kidney injury): Baseline Cr ~1.0. - Cr on admission was 1.7, likely ATN from cardiac arrest. - Follow Cr -> Back to baseline as of 02/07 (4) HTN (hypertension): Presently off pressors. - HTN meds per ICU (5) DVT prophylaxis: Heparin 5,000 units SQ Q12h - per ICU team. Disposition: compassionate extubation later today, February 10. Palliative care is involved. Admission and Anticipated Discharge Date Admission Date: February 05, 2021 Subjective The patient remains unresponsive on ventilator support. Palliative care informs me that the patient's family will be present this afternoon at which time compassionate extubation will take place. Review of Systems Review of Systems: Unobtainable due to cognitive status Physical Exam Physical Exam: General-unresponsive on ventilator support HEENT-head atraumatic and normocephalic Neck-no lymphadenopathy or thyromegaly, trachea midline. Endotracheal tube in place Chest-scattered bilateral rhonchi Cardiac-regular rate and rhythm, normal S1 and S2 Abdomen- no hepatosplenomegaly Extremities-no cyanosis, clubbing, or edema Neuro-unresponsive due to anoxic brain injury Results & Data Results & Data ([facility]) Vital Signs (Past 12 Hours) Vital Signs Temp Pulse Resp BP Pulse Ox 02/10/21 12:04 71 23 99 02/10/21 11:05 36.9 C 70 93/55 L 100 02/10/21 10:05 36.8 C 68 92/54 L 99 02/10/21 09:05 37.1 C 71 92/54 L 98 02/10/21 08:05 37.1 C 74 87/52 L 99 02/10/21 08:00 74 02/10/21 07:19 74 23 98 02/10/21 07:05 37.2 C 77 94/53 L 98 02/10/21 06:05 37.1 C 75 88/52 L 98 02/10/21 06:00 37.1 C 76 99 02/10/21 05:05 37.1 C 75 86/51 L 98 02/10/21 05:00 37.1 C 75 99 02/10/21 04:16 76 19 99 02/10/21 04:05 37.1 C 78 86/53 L 97 02/10/21 04:00 37.1 C 78 96 02/10/21 03:05 37.1 C 79 82/50 L 96 02/10/21 03:00 37.1 C 79 96 02/10/21 02:05 37.2 C 85 89/57 L 96 02/10/21 02:00 37.2 C 83 95 02/10/21 01:05 37.1 C 85 96/57 L 95 02/10/21 01:00 37.1 C 78 94 Laboratory Results 02/10/21 05:28 02/10/21 05:29 PG Care Time/CCT Total # of Minutes Spent Total Time Spent with Patient: Total time spent is greater than 50% in coordination of care (as documented) at patient's floor/unit and/or counseling patient: Coding Level of Care Code 03878 Subseq Hosp Care Lvl 3 Diagnoses Sudden R99 CAD (coronary artery disease) I25.10 MAI (acute kidney injury) N17.9 HTN (hypertension) I10 DVT prophylaxis Z29.9
[2021-02-10] MEDS ORDERED: GLYCOPYRROLATE 0.2 MG/ML VIAL IV PRN ×2 (13:16→13:31)
[2021-02-10] MEDS ORDERED: MoRPHine SULFATE 2 MG/ML CARP IV PRN (13:31)
[2021-02-10] MEDS ORDERED: ONDANSETRON INJ 2 MG/ML 2 ML VIAL IV PRN (13:31)
[2021-02-10] MEDS ORDERED: ONDANSETRON 4 MG OD TAB SL PRN (13:31)
[2021-02-10] MEDS ORDERED: LORazepam 0.5 MG TAB PO PRN (13:31)
[2021-02-10] MEDS ORDERED: STAT IV Infusion **Titration per Protocol STA (13:31)
[2021-02-10] MEDS ORDERED: MoRPHine SULFATE 5 MG/0.25 ML UDP PO PRN (13:31)
[2021-02-10] MEDS ORDERED: LORazepam 0.5 MG/1 ML VIAL IV PRN (13:31)
[2021-02-10] MEDS: MoRPHine SULFATE 2 MG/ML CARP IV PRN ×3 (13:34→15:49)
--- NOTE | 2021-02-10 13:37 | Critical Care Progress Note ---
Date of Service February 10, 2021 Assessment & Plan (1) Cardiac arrest: Patient with severe anoxic brain injury status post cardiac arrest. He has not had any meaningful neurological recovery at this time. Family would like to proceed with a compassionate extubation. We will extubate the patient and continue with comfort measures only. Family understands that he will likely pass away quickly. We greatly appreciate the assistance from the palliative care team. (2) CAD (coronary artery disease): (3) AMI (acute kidney injury): (4) High anion gap metabolic acidosis: (5) Brain anoxic injury: (6) Acute systolic heart failure: Admission and Anticipated Discharge Date Admission Date: February 05, 2021 Subjective Patient seen examined this morning. Continues to display signs of severe anoxic brain injury. He is not responsive to commands. He is currently on propofol and fentanyl due to ventilator dyssynchrony and myoclonic jerking activity. The patient's is at bedside at this time and would like to proceed with a compassionate extubation. Review of Systems Review of Systems: Unobtainable due to cognitive status Physical Exam Constitutional: Patient sedated and intubated. Does not appear to be in any significant distress while sedated. When propofol was turned off, he became very tachypneic and started having posturing behavior. Eyes: + abnormal pupil size ENMT: external ear and nose normal, oropharynx normal Intubated Neck: normal visual inspection Respiratory: Coarse breath sounds on the ventilator Cardiovascular: RRR, no murmur, no edema Gastrointestinal (Abdomen): normal bowel sounds, soft, nontender, no hepatosplenomegaly Neurologic: Posturing noted. Not following commands. Psychiatric: A+Ox3, euthymic affect Results & Data Results & Data ([facility]) Vital Signs (Past 12 Hours) Vital Signs Temp Pulse Resp BP Pulse Ox 02/10/21 12:04 71 23 99 02/10/21 11:05 98.4 F 70 93/55 L 100 02/10/21 10:05 98.2 F 68 92/54 L 99 02/10/21 09:05 98.8 F 71 92/54 L 98 02/10/21 08:05 98.8 F 74 87/52 L 99 02/10/21 08:00 74 02/10/21 07:19 74 23 98 02/10/21 07:05 99.0 F 77 94/53 L 98 02/10/21 06:05 98.8 F 75 88/52 L 98 02/10/21 06:00 98.8 F 76 99 02/10/21 05:05 98.8 F 75 86/51 L 98 02/10/21 05:00 98.8 F 75 99 02/10/21 04:16 76 19 99 02/10/21 04:05 98.8 F 78 86/53 L 97 02/10/21 04:00 98.8 F 78 96 02/10/21 03:05 98.8 F 79 82/50 L 96 02/10/21 03:00 98.8 F 79 96 02/10/21 02:05 99.0 F 85 89/57 L 96 02/10/21 02:00 99.0 F 83 95 Vital signs, labs and imaging reviewed Coding Level of Care Code 89055 Subseq Hosp Care Lvl 3 Diagnoses Cardiac arrest I46.9 CAD (coronary artery disease) I25.10 AMI (acute kidney injury) N17.9 High anion gap metabolic acidosis E87.2 Brain anoxic injury G93.1 Acute systolic heart failure I50.21
[2021-02-10] MEDS ORDERED: MoRPHine SULF/SW 240 MG/240 ML BTL IV SCH (13:45)
[2021-02-10] MEDS: ATROPINE SULFATE 1% OP SOLN 5 ML BTL SL PRN ×2 (14:58→15:47)
[2021-02-10] MEDS: cefTRIAXone SODIUM 2,000 MG in DEXTROSE 5% 50 ML IV SCH (18:01)
--- NOTE | 2021-02-10 18:06 | Death Pronouncement Note ---
Date of Service February 10, 2021 Pronouncement Note Admission Date Admission Date: February 05, 2021 Date and Time of Date of : 02/10/21 Time of : 17:13 Contributing Factors (1) Palliative care encounter: (2) Cardiac arrest: (3) Brain anoxic injury: Additional Data Confirmation of : no pulse, no respirations, no heart sounds and pupils fixed and dilated Family: at bedside Attending/PCP notified?: Yes Attending physician: Maikel Newman MD Was code activated?: No Coding Level of Care Code None Diagnoses Palliative care encounter Z51.5 Cardiac arrest I46.9 Brain anoxic injury G93.1
--- NOTE | 2021-02-11 07:32 | Discharge Summary ---
Date of Service February 11, 2021 Admission HPI Per Admitting Provider 65yo M w/ hx of CAD who presents as a sudden . The patient is intubated. Per EMS, he was mowing his lawn and collapsed. EMS arrived, and he was found to be in vfib. They administered approx. 15 minutes of CPR along with 4 pushes of epinephrine. After approx. 15 minutes, he went into Vtach for which he received 3 shocks and two pushes of lidocaine (200 mg) before return of spontaneous circulation. His oxygenation was acceptable on arrival to the ED; however, he was not protecting his airway, and the ED provider elected to intubate him. Principal Diagnosis Cardiac arrest, anoxic brain injury Discharge Data Allergies Allergy/AdvReac Type Severity Reaction Status Date / Time clopidogrel Allergy Mild hives Verified 11/19/20 11:37 lisinopril AdvReac Mild cough Verified 11/19/20 11:37 Consultations 02/05/21 16:07 ED Decision to Admit Stat 02/05/21 17:39 Consult Slitter Creaser Slotter Operator Routine 02/07/21 08:03 Consult Palliative Care Routine 02/07/21 23:20 Consult Neurology Routine 02/10/21 13:31 Consult Palliative Care Routine Procedures Performed Operation Date: 02/05/21 15:30 Actual Procedures p Aspiration/PCI w/LUCIANA for Stemi - Rip Alexander MD s Cineradiography w/Routine Exam - Rip Alexander MD Ordered Studies 02/05/21 15:21 CL Cath Imgs for PACS use only Stat 02/05/21 17:46 US point of care ultrasound Routine 02/05/21 19:38 CL IVUS Coronary Single Vessel Stat 02/07/21 03:42 CT head/brain wo con Urgent 02/07/21 08:03 MR brain wo con Urgent Hospital Course (1) Palliative care encounter: (1) Sudden : While mowing the lawn. Initial rhtyhm was vfib, then Vtach, s/p multiple epinephrine & lidocaine pushes and defibrillation. - LHC with Dr. Alexander on 02/05 showed 70% lesion proximal to his prior stent; however, Dr. lAexander feels this arrest was more likely an arrhythmia stemming from prior PA and not a ACS that caused an arrhythmia. - Presently in ICU on ventilator support . Unresponsive. Anoxic brain injury as result of ventricular fibrillation. - On [facility]. 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 EEG report noted. Neurology consultation appreciated. (2) CAD (coronary artery disease): Per cardiology note, had a prior LAD PA. PCI on 02/05 as above. - Continue ASA, ticagrelor, statin per ICU team - Holding beta-geraldine and ARB for hypotension (3) AMI (acute kidney injury): Baseline Cr ~1.0. - Cr on admission was 1.7, likely ATN from cardiac arrest. - Follow Cr -> Back to baseline as of 02/07 (4) HTN (hypertension): Presently off pressors. - HTN meds per ICU (5) DVT prophylaxis: Heparin 5,000 units SQ Q12h - per ICU team. Disposition: compassionate extubation later today, February 10. Palliative care i s involved. (2) Cardiac arrest: (3) Brain anoxic injury: Total Time Total Time Spent Total Time Spent (In Minutes): 35 minutes Total Time Includes: Examination of the Patient, Discharge Planning and Medication Reconciliation Discharge Plan Discharge Items Patient Disposition: Coding Level of Care Code D/C Day Management >30 mins Diagnoses Palliative care encounter Z51.5 Cardiac arrest I46.9 Brain anoxic injury G93.1
--- NOTE | 2021-02-11 07:35 | Discharge Summary ---
Date of Service February 11, 2021 Admission HPI Per Admitting Provider 65yo M w/ hx of CAD who presents as a sudden . The patient is intubated. Per EMS, he was mowing his lawn and collapsed. EMS arrived, and he was found to be in vfib. They administered approx. 15 minutes of CPR along with 4 pushes of epinephrine. After approx. 15 minutes, he went into Vtach for which he received 3 shocks and two pushes of lidocaine (200 mg) before return of spontaneous circulation. His oxygenation was acceptable on arrival to the ED; however, he was not protecting his airway, and the ED provider elected to intubate him. Principal Diagnosis Cardiac arrest, anoxic brain injury Discharge Data Allergies Allergy/AdvReac Type Severity Reaction Status Date / Time clopidogrel Allergy Mild hives Verified 11/19/20 11:37 lisinopril AdvReac Mild cough Verified 11/19/20 11:37 Consultations 02/05/21 16:07 ED Decision to Admit Stat 02/05/21 17:39 Consult Clothing Presser Routine 02/07/21 08:03 Consult Palliative Care Routine 02/07/21 23:20 Consult Neurology Routine 02/10/21 13:31 Consult Palliative Care Routine Procedures Performed Operation Date: 02/05/21 15:30 Actual Procedures p Aspiration/PCI w/LUCIANA for Stemi - Rip Alexander MD s Cineradiography w/Routine Exam - Rip Alexander MD Ordered Studies 02/05/21 15:21 CL Cath Imgs for PACS use only Stat 02/05/21 17:46 US point of care ultrasound Routine 02/05/21 19:38 CL IVUS Coronary Single Vessel Stat 02/07/21 03:42 CT head/brain wo con Urgent 02/07/21 08:03 MR brain wo con Urgent Hospital Course (1) Palliative care encounter: (1) Sudden : While mowing the lawn. Initial rhtyhm was vfib, then Vtach, s/p multiple epinephrine & lidocaine pushes and defibrillation. - LHC with Dr. Alexander on 02/05 showed 70% lesion proximal to his prior stent; however, Dr. Alexander feels this arrest was more likely an arrhythmia stemming from prior NV and not a ACS that caused an arrhythmia. - Presently in ICU on ventilator support . Unresponsive. Anoxic brain injury as result of ventricular fibrillation. - On [facility]. 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 EEG report noted. Neurology consultation appreciated. (2) CAD (coronary artery disease): Per cardiology note, had a prior LAD NV. PCI on 02/05 as above. - Continue ASA, ticagrelor, statin per ICU team - Holding beta-geraldine and ARB for hypotension (3) AMI (acute kidney injury): Baseline Cr ~1.0. - Cr on admission was 1.7, likely ATN from cardiac arrest. - Follow Cr -> Back to baseline as of 02/07 (4) HTN (hypertension): Presently off pressors. - HTN meds per ICU (5) DVT prophylaxis: Heparin 5,000 units SQ Q12h - per ICU team. Disposition: compassionate extubation later today, February 10. Palliative care i s involved. (2) Cardiac arrest: (3) Brain anoxic injury: Total Time Total Time Spent Total Time Spent (In Minutes): 35 minutes Total Time Includes: Examination of the Patient, Discharge Planning and Medication Reconciliation Discharge Plan Discharge Items Patient Disposition: Coding Level of Care Code D/C Day Management >30 mins Diagnoses Palliative care encounter Z51.5 Cardiac arrest I46.9 Brain anoxic injury G93.1
== END 2021-02-10 19:10 | disposition expired | DRG 246 ==
LOC: ED 15:06 → SUATTDRO 17:36 → 1E 17:36